=== PATIENT | male | born 1945 | race Two or more races ===

== ENCOUNTER 2018-12-27 11:02 | Day surgery (SDC) | payer OTHER ==
[2018-12-26 16:27] VITALS: BMI 36.0
[~2018-12-27 11:02] MED LIST: ACETAMINOPHEN 325 MG TABLET (FP) PO PRN
[2018-12-27] MEDS ORDERED: OFLOXACIN 0.3% OPHTHALMIC SOLUTION 5 ML BOTTLE ONE (11:09)
[2018-12-27] MEDS ORDERED: KETOROLAC TROMETHAMINE 0.5% EYE DROP 1 DROP DROPS ONE (11:10)
[2018-12-27] MEDS ORDERED: CYCLOPENTOLATE HCL 1% OPHTH SOLN 2 ML BOTTLE ONE (11:10)
[2018-12-27] MEDS ORDERED: TROPICAMIDE 1% OPHTH SOLN 15 ML BOTTLE ONE (11:10)
[2018-12-27] MEDS ORDERED: PHENYLEPHRINE 2.5% OPHTH SOLN 15 ML BOTTLE ONE (11:10)
[2018-12-27] MEDS: PHENYLEPHRINE 2.5% OPHTH SOLN 15 ML BOTTLE OP SCH ×3 (11:15→11:25)
[2018-12-27] MEDS: OFLOXACIN 0.3% OPHTHALMIC SOLUTION 5 ML BOTTLE OP SCH ×3 (11:15→11:25)
[2018-12-27] MEDS: CYCLOPENTOLATE HCL 1% OPHTH SOLN 2 ML BOTTLE OP SCH ×3 (11:15→11:25)
[2018-12-27] MEDS: KETOROLAC TROMETHAMINE 0.5% EYE DROP 1 DROP DROPS OP SCH ×3 (11:15→11:25)
[2018-12-27] MEDS: TROPICAMIDE 1% OPHTH SOLN 15 ML BOTTLE OP SCH ×3 (11:15→11:25)
[2018-12-27] MEDS ORDERED: LIDOCAINE HCL/PF 2% SDV 5ML VIAL ONE (11:56)
[2018-12-27] MEDS ORDERED: EPINEPHrine/PF 1 MG/1 ML (1:1,000) AMPULE ONE (11:56)
[2018-12-27] MEDS ORDERED: LIDOCAINE HCL/PF 1% SDV 5ML VIAL ONE (11:56)
[2018-12-27] MEDS ORDERED: TETRACAINE 0.5% OPHTH SOLN 2 ML BOTTLE ONE (11:57)
[2018-12-27] MEDS ORDERED: PROPOFOL 20 ML ONE (12:10)
[2018-12-27] MEDS ORDERED: LIDOCAINE HCL/PF 2% SDV 5ML VIAL INF ONE (12:15)
[2018-12-27] MEDS ORDERED: POVIDONE-IODINE 5% OPHTHALMIC PREP 30 ML SOLUTION OS ONE (12:16)
[2018-12-27] MEDS ORDERED: BSS (NA/CA/MG/K) BALANCED SALT SOLUTION OPHTH SOLN 15 ML BOTTLE OS ONE (12:23)
[2018-12-27] MEDS ORDERED: LIDOCAINE HCL 1% PRESERVATIVE FREE - 30ML VIAL IO ONE (12:23)
[2018-12-27] MEDS ORDERED: CHONDROITIN SU A/HYALUR SOD 1 KIT IO ONE (12:23)
[2018-12-27] MEDS ORDERED: EPINEPHrine/PF 1 MG/1 ML (1:1,000) AMPULE SQ ONE (12:28)
[2018-12-27] MEDS ORDERED: CHONDROITIN SU A/HYALUR SOD 1 KIT ONE ×3 (13:00→14:03)
[2018-12-27 13:29] VITALS: PULSE 60
--- NOTE | 2018-12-27 13:37 | OP ---
DATE OF OPERATION: 12/27/2018 SURGEON: Marion Villegas MD PREOPERATIVE DIAGNOSIS: Cataract, left eye. ASSOCIATED DIAGNOSIS: High myopia. POSTOPERATIVE DIAGNOSIS: Cataract, left eye. OPERATION: Phacoemulsification of left cataract with posterior chamber intraocular lens implantation. The lens used MA60MA lens, 3.0 diopter, serial No. [id number]. ANESTHESIA: Peribulbar/Modified Van Lint/MAC. COMPLICATIONS: None. PROCEDURE: The patient was brought to the operating room and correctly identified along with the operative site as well as the correct intraocular lens keating. He was then given a peribulbar block under sedation with 5 mL of 2% Lidocaine and 2 mL of the same mixture was given as a modified Van Lint eyelid block. The eye was then prepped and draped in the usual sterile fashion including 5% Betadine solution in the conjunctival sac and an eyelid drape. An eyelid speculum was then placed into the left eye. A paracentesis port was placed. Viscoelastic was injected to inflate the anterior chamber, and a temporal clear corneal wound was created. A continuous circular capsulorrhexis was performed. The nucleus was then hydro-dissected, hydro-delineated with BSS, and removed with phacoemulsification via [id number] approach. The remaining cortical material was irrigated and aspirated from the eye. Viscoelastic was injected to inflate the capsular bag. The temporal clear corneal wound was enlarged approximately 3.0 mm. The MA60MA lens was then loaded into a B cartridge and injected into the capsular bag without complication. The remaining viscoelastic was irrigated and aspirated from the eye. All wounds were stromal hydrated and tested and found to be watertight. No suture was placed. Topical Vancomycin was given. The eye patched and shielded, and the patient discharged from the operating room in a stable condition. MARION VILLEGAS M.D. [id number]
[2018-12-27 13:48] VITALS: BP 154/69; TEMP 97.9
== END 2018-12-27 13:50 | disposition home or self-care (01) ==
LOC: JASU-SURG 11:02
PROVIDERS: ATTEND Ophthalmology
PROC: 08RK3JZ Replacement of Left Lens with Synthetic Substitute, Percutaneous Approach (ICD-10-PCS; principal; 2018-12-27 12:00)
DX: H26.9 Unspecified cataract (principal); H52.12 Myopia, left eye; I10 Essential (primary) hypertension; E11.9 Type 2 diabetes mellitus without complications; Z79.84 Long term (current) use of oral hypoglycemic drugs
CPT/HCPCS: 82962

== ENCOUNTER 2020-11-25 00:19 | Observation (INO) | payer OTHER ==
[2020-11-25 00:42] VITALS: BMI 31.3
[2020-11-25 02:05] LABS: INR 0.93 (0.83-1.09); PROTHROMBIN TIME (PATIENT) 11.3 SEC (9.7-13.0)
[2020-11-25 02:06] LABS: BASO % 0.6 % (0-2.0); HEMATOCRIT 40.6 % (35.4-49); HEMOGLOBIN 13.6 GM/dL (11.7-16.9); LYMPH % 7.8 % (8-40); MCH 28.4 pg (25.7-33.7); MCHC 33.5 g/dl (32.0-35.9); MEAN CELL VOLUME 84.9 fl (80-96); MONO % 4.6 % (3.8-10.2); PLATELET COUNT 294 10^3/uL (134-434); RBC 4.78 M/mm3 (4.00-5.60); RDW 14.6 % (11.9-15.9); WHITE BLOOD COUNT 9.7 K/mm3 (4.0-10.0)
[2020-11-25 02:13] LABS: CALCIUM 9.5 mg/dL (8.5-10.1)
[2020-11-25 02:14] LABS: ALBUMIN 3.2 g/dl (3.4-5.0); BLOOD UREA NITROGEN 44.4 mg/dL (7-18); MAGNESIUM 2.5 mg/dL (1.8-2.4)
[2020-11-25 02:17] LABS: CREATININE 2.5 mg/dL (0.55-1.3)
[2020-11-25 02:19] LABS: BILIRUBIN,TOTAL 0.5 mg/dL (0.2-1); TOT PROT 7.9 g/dl (6.4-8.2)
[2020-11-25 03:04] LABS: EPI CELLS 3 /uL (0-25.1); HYALINE CASTS 1 /uL (0-3.1); URINE APPEARANCE CLEAR; URINE BACTERIA 3 /uL (0-1359); URINE BILIRUBIN NEGATIVE (NEGATIVE); URINE COLOR YELLOW; URINE GLUCOSE (UA) TRACE (NEGATIVE); URINE KETONE NEGATIVE (NEGATIVE); URINE LEUK ESTERASE NEGATIVE (NEGATIVE); URINE NITRITE NEGATIVE (NEGATIVE); URINE PROTEIN 3+ (NEGATIVE); URINE RBC 16 /uL (0-23.9); URINE UROBILINOGEN 0.2 mg/dL (0.2-1.0); URINE WBC 4 /uL (0-25.8)
[2020-11-25 09:42] LABS: BASO % 0.6 % (0-2.0); EOS % 0.5 % (0-4.5); HEMATOCRIT 37.5 % (35.4-49); HEMOGLOBIN 12.5 GM/dL (11.7-16.9); LYMPH % 17.1 % (8-40); MCH 28.1 pg (25.7-33.7); MCHC 33.4 g/dl (32.0-35.9); MEAN CELL VOLUME 84.2 fl (80-96); MEAN PLT VOLUME 7.7 fl (7.5-11.1); MONO % 7.6 % (3.8-10.2); NEUT % 74.2 % (42.8-82.8); PLATELET COUNT 337 10^3/uL (134-434); RBC 4.46 M/mm3 (4.00-5.60); RDW 14.4 % (11.9-15.9); WHITE BLOOD COUNT 9.9 K/mm3 (4.0-10.0)
[2020-11-25 10:00] LABS: ALBUMIN 2.9 g/dl (3.4-5.0)
[2020-11-25 10:01] LABS: BLOOD UREA NITROGEN 44.9 mg/dL (7-18); MAGNESIUM 2.4 mg/dL (1.8-2.4)
[2020-11-25 10:05] LABS: BILIRUBIN,TOTAL 0.7 mg/dL (0.2-1); CREATININE 2.4 mg/dL (0.55-1.3); TOT PROT 7.3 g/dl (6.4-8.2)
[2020-11-25] MEDS ORDERED: SODIUM CHLORIDE 1,000 ML IV SCH (12:00)
[2020-11-25] MEDS: LABETALOL HCL 200 MG TABLET (FP) PO SCH ×2 (12:31→21:04)
[2020-11-25] MEDS: amLODIPine BESYLATE 10 MG TABLET (FP) PO SCH (12:31)
[2020-11-25] MEDS: ASPIRIN COATED 81 MG TABLET.EC PO SCH (12:32)
[2020-11-25] MEDS: hydrALAZINE HCL 10 MG TABLET PO SCH ×4 (12:33→21:04)
[2020-11-25] MEDS: INSULIN SLIDING SCALE (NOVOLOG) 1 VIAL SQ SCH ×3 (12:39→21:21)
[2020-11-25] MEDS ORDERED: INSULIN (NOVOLOG) ASPART 100 UNITS/ML 10ML VIAL ONE ×2 (12:39→16:09)
[2020-11-25] MEDS: HEPARIN NA (PORCINE) 5,000 UNITS/ML 1ML VIAL SQ SCH ×3 (14:59→21:07)
[2020-11-25] MEDS: ACETAMINOPHEN 325 MG TABLET (FP) PO PRN ×2 (15:10→21:04)
[2020-11-25] MEDS: LISINOPRIL 5 MG TABLET PO SCH (17:42)
[2020-11-25] MEDS: ATORVASTATIN CA 40 MG TABLET (FP) PO SCH (21:03)
[2020-11-25] MEDS ORDERED: ATORVASTATIN CA 20 MG TABLET (FP) PO SCH (22:00)
[2020-11-26] MEDS: HEPARIN NA (PORCINE) 5,000 UNITS/ML 1ML VIAL SQ SCH ×3 (05:54→22:05)
[2020-11-26] MEDS: INSULIN SLIDING SCALE (NOVOLOG) 1 VIAL SQ SCH ×4 (06:18→22:11)
[2020-11-26 07:54] LABS: HEMATOCRIT 34.3 % (35.4-49); HEMOGLOBIN 11.5 GM/dL (11.7-16.9); MCH 28.3 pg (25.7-33.7); MCHC 33.5 g/dl (32.0-35.9); MEAN CELL VOLUME 84.5 fl (80-96); MEAN PLT VOLUME 8.1 fl (7.5-11.1); PLATELET COUNT 311 10^3/uL (134-434); RBC 4.06 M/mm3 (4.00-5.60); RDW 14.4 % (11.9-15.9); WHITE BLOOD COUNT 8.1 K/mm3 (4.0-10.0)
[2020-11-26 08:17] LABS: CALCIUM 8.9 mg/dL (8.5-10.1)
[2020-11-26 08:18] LABS: BLOOD UREA NITROGEN 45.6 mg/dL (7-18); MAGNESIUM 2.5 mg/dL (1.8-2.4)
[2020-11-26 08:21] LABS: CREATININE 2.6 mg/dL (0.55-1.3)
[2020-11-26] MEDS: LISINOPRIL 5 MG TABLET PO SCH (10:35)
[2020-11-26] MEDS: ASPIRIN COATED 81 MG TABLET.EC PO SCH (10:35)
[2020-11-26] MEDS: LABETALOL HCL 200 MG TABLET (FP) PO SCH ×2 (10:36→22:05)
[2020-11-26] MEDS: hydrALAZINE HCL 10 MG TABLET PO SCH ×4 (10:36→22:06)
[2020-11-26] MEDS: amLODIPine BESYLATE 10 MG TABLET (FP) PO SCH (10:36)
[2020-11-26 16:38] LABS: EPI CELLS 3 /uL (0-25.1); HYALINE CASTS 0 /uL (0-3.1); URINE APPEARANCE CLEAR; URINE BACTERIA 8 /uL (0-1359); URINE BILIRUBIN NEGATIVE (NEGATIVE); URINE COLOR YELLOW; URINE GLUCOSE (UA) 1+ (NEGATIVE); URINE KETONE NEGATIVE (NEGATIVE); URINE LEUK ESTERASE TRACE (NEGATIVE); URINE NITRITE NEGATIVE (NEGATIVE); URINE PROTEIN 4+ (NEGATIVE); URINE RBC 6 /uL (0-23.9); URINE WBC 31 /uL (0-25.8)
[2020-11-26] MEDS ORDERED: INSULIN (LEVEMIR) 100 UNITS/ML UNITS SQ SCH (22:00)
[2020-11-26] MEDS ORDERED: PT OWN MED DRAWER 7, Y5N ONE (22:01)
[2020-11-26] MEDS: ATORVASTATIN CA 40 MG TABLET (FP) PO SCH (22:06)
[2020-11-27] MEDS: INSULIN SLIDING SCALE (NOVOLOG) 1 VIAL SQ SCH ×3 (06:10→16:01)
[2020-11-27] MEDS: HEPARIN NA (PORCINE) 5,000 UNITS/ML 1ML VIAL SQ SCH ×2 (06:12→14:07)
[2020-11-27 07:46] LABS: EOS % 4.2 % (0-4.5); HEMATOCRIT 32.6 % (35.4-49); HEMOGLOBIN 11.2 GM/dL (11.7-16.9); LYMPH % 30.9 % (8-40); MCH 28.6 pg (25.7-33.7); MCHC 34.2 g/dl (32.0-35.9); MEAN CELL VOLUME 83.7 fl (80-96); MONO % 10.8 % (3.8-10.2); NEUT % 53.1 % (42.8-82.8); PLATELET COUNT 282 10^3/uL (134-434); RDW 14.5 % (11.9-15.9)
[2020-11-27 08:02] LABS: ALBUMIN 2.6 g/dl (3.4-5.0); BLOOD UREA NITROGEN 44.9 mg/dL (7-18); CALCIUM 8.7 mg/dL (8.5-10.1); MAGNESIUM 2.4 mg/dL (1.8-2.4)
[2020-11-27 08:04] LABS: CREATININE 2.4 mg/dL (0.55-1.3)
[2020-11-27 08:05] LABS: PHOSPHOROUS 3.5 mg/dL (2.5-4.9)
[2020-11-27 08:06] LABS: BILIRUBIN,TOTAL 0.6 mg/dL (0.2-1); TOT PROT 6.4 g/dl (6.4-8.2)
[2020-11-27] MEDS: LISINOPRIL 5 MG TABLET PO SCH (09:25)
[2020-11-27] MEDS: ASPIRIN COATED 81 MG TABLET.EC PO SCH (09:25)
[2020-11-27] MEDS: amLODIPine BESYLATE 10 MG TABLET (FP) PO SCH (09:25)
[2020-11-27] MEDS: hydrALAZINE HCL 10 MG TABLET PO SCH ×2 (09:26→14:07)
[2020-11-27] MEDS: LABETALOL HCL 200 MG TABLET (FP) PO SCH (09:26)
[2020-11-27] MEDS ORDERED: FUROSEMIDE 20 MG TABLET (FP) PO SCH (10:00)
[2020-11-27 13:40] VITALS: BP 126/68; PULSE 96; TEMP 97.3
[2020-11-27] MEDS ORDERED: INSULIN (NOVOLOG) ASPART 100 UNITS/ML 10ML VIAL ONE (15:58)
== END 2020-11-27 16:30 | disposition home or self-care (01) ==
LOC: JER 00:19 → JERBED 05:12 → INTOOBSV 05:12 → UNDOADMOB 05:12 → JERBED 11:58 → J4W 11:58
PROVIDERS: ADMIT Hospitalist; ATTEND Internal Medicine
PROC: 3E013VG Introduction of Insulin into Subcutaneous Tissue, Percutaneous Approach (ICD-10-PCS; principal; 2020-11-25)
PROC: 3E0337Z Introduction of Electrolytic and Water Balance Substance into Peripheral Vein, Percutaneous Approach (ICD-10-PCS; 2020-11-25)
DX: I12.9 Hypertensive chronic kidney disease with stage 1 through stage 4 chronic kidney disease, or unspecified chronic kidney disease (principal); S09.90XA Unspecified injury of head, initial encounter; R55 Syncope and collapse; E11.649 Type 2 diabetes mellitus with hypoglycemia without coma; E11.22 Type 2 diabetes mellitus with diabetic chronic kidney disease; E66.9 Obesity, unspecified; Z68.31 Body mass index [BMI] 31.0-31.9, adult; Z87.891 Personal history of nicotine dependence; R53.1 Weakness; H54.40 Blindness, one eye, unspecified eye; R41.82 Altered mental status, unspecified; E78.00 Pure hypercholesterolemia, unspecified; N18.4 Chronic kidney disease, stage 4 (severe); Z79.4 Long term (current) use of insulin; W18.39XA Other fall on same level, initial encounter; Y93.89 Activity, other specified; Y92.89 Other specified places as the place of occurrence of the external cause
CPT/HCPCS: 36415; 70450-TC; 71045-TC-FY; 71046-TC-FY; 72125-TC; 76775-TC; 80048; 80053; 80061; 81003; 82550; 82553; 82570; 82962; 83036; 83721; 83735; 84100; 84156; 84484; 85025; 85027; 85610; 87086; 93005; 93010; 93306-TC; 93880-TC; 96372; 97116-GP; 97161-GP; 99285-25; C9803; G0378; J1644; U0003; U0005

== ENCOUNTER 2020-12-10 01:29 | Inpatient (IN) | payer OTHER ==
[2020-12-10] MEDS ORDERED: DEXTROSE 50%-WATER 25 GM/50 ML DISP.SYRIN ONE ×2 (01:36→03:08)
[2020-12-10] MEDS ORDERED: DEXTROSE 50%-WATER - 25 GM/50 ML VIAL IVPUSH ONE ×2 (01:50→03:01)
[2020-12-10 02:24] LABS: CHLORIDE 108 mmol/L (98-107); SODIUM 138 mmol/L (136-145)
[2020-12-10 02:26] LABS: CALCIUM 8.8 mg/dL (8.5-10.1)
[2020-12-10 02:27] LABS: ANION GAP 7 MMOL/L (8-16); BLOOD UREA NITROGEN 45.2 mg/dL (7-18); CO2 23 mmol/L (21-32); GLUCOSE,RANDOM 176 mg/dL (74-106)
[2020-12-10 02:32] LABS: BASO % 1.6 % (0-2.0); BILIRUBIN,TOTAL 0.4 mg/dL (0.2-1); CREATININE 2.3 mg/dL (0.55-1.3); EOS % 2.9 % (0-4.5); HEMATOCRIT 32.8 % (35.4-49); HEMOGLOBIN 10.8 GM/dL (11.7-16.9); LYMPH % 21.3 % (8-40); MCH 28.4 pg (25.7-33.7); MCHC 32.9 g/dl (32.0-35.9); MEAN CELL VOLUME 86.3 fl (80-96); MEAN PLT VOLUME 8.2 fl (7.5-11.1); NEUT % 67.2 % (42.8-82.8); PLATELET COUNT 289 10^3/uL (134-434); RDW 14.8 % (11.9-15.9); SGOT/AST 23 U/L (15-37); SGPT/ALT 17 U/L (13-61); TOT PROT 7.2 g/dl (6.4-8.2); WHITE BLOOD COUNT 13.5 K/mm3 (4.0-10.0)
[2020-12-10 02:33] LABS: ALK PHOS 83 U/L (45-117)
[2020-12-10] MEDS ORDERED: DEXTROSE 10%-WATER - 1,000 ML IV SCH (03:15)
[2020-12-10 03:38] LABS: PLATELET ESTIMATE NORMAL
[2020-12-10 03:45] LABS: N-TERMINAL BNP 1490.9 pg/ml (5-125)
[2020-12-10] MEDS ORDERED: DEXTROSE 5%-0.45% SALINE 1,000 ML IV SCH (04:15)
[2020-12-10] MEDS ORDERED: FUROSEMIDE 40 MG/4 ML INJECTABLE VIAL IVPUSH ONE (06:04)
[2020-12-10] MEDS ORDERED: FUROSEMIDE 40 MG/4 ML INJECTABLE VIAL ONE (06:14)
[2020-12-10] MEDS: HEPARIN NA (PORCINE) 5,000 UNITS/ML 1ML VIAL SQ SCH ×3 (06:17→22:32)
[2020-12-10 08:30] LABS: HEMATOCRIT 30.8 % (35.4-49); HEMOGLOBIN 10.3 GM/dL (11.7-16.9); MCH 28.8 pg (25.7-33.7); MCHC 33.4 g/dl (32.0-35.9); MEAN CELL VOLUME 86.2 fl (80-96); PLATELET COUNT 256 10^3/uL (134-434); RBC 3.58 M/mm3 (4.00-5.60); RDW 14.6 % (11.9-15.9)
[2020-12-10 08:42] LABS: MAGNESIUM 2.3 mg/dL (1.8-2.4)
[2020-12-10 08:46] LABS: PHOSPHOROUS 4.1 mg/dL (2.5-4.9)
[2020-12-10] MEDS ORDERED: DEXTROSE 50%-WATER - 25 GM/50 ML VIAL IVPUSH PRN (09:22)
[2020-12-10] MEDS ORDERED: LABETALOL HCL 100 MG TABLET (FP) ONE ×3 (10:12→21:34)
[2020-12-10] MEDS ORDERED: ASPIRIN COATED 81 MG TABLET.EC ONE (10:12)
[2020-12-10] MEDS: ENALAPRIL MALEATE 10 MG TABLET PO SCH ×2 (10:21→22:32)
[2020-12-10] MEDS: ASPIRIN COATED 81 MG TABLET.EC PO SCH (10:21)
[2020-12-10] MEDS: hydrALAZINE HCL 10 MG TABLET PO SCH ×4 (10:21→22:32)
[2020-12-10] MEDS: LABETALOL HCL 100 MG TABLET (FP) PO SCH ×2 (10:21→22:32)
[2020-12-10] MEDS ORDERED: HEPARIN NA (PORCINE) 5,000 UNITS/ML 1ML VIAL ONE ×2 (14:20→21:27)
[2020-12-10] MEDS ORDERED: INSULIN SLIDING SCALE (NOVOLOG) 1 VIAL SQ SCH (16:30)
[2020-12-10] MEDS ORDERED: ATORVASTATIN CA 20 MG TABLET (FP) ONE (21:26)
[2020-12-10] MEDS ORDERED: ENALAPRIL MALEATE 5 MG TABLET ONE (21:34)
[2020-12-10] MEDS: ATORVASTATIN CA 20 MG TABLET (FP) PO SCH (22:32)
[2020-12-10] MEDS: INSULIN SLIDING SCALE (NOVOLOG) 1 VIAL SQ SCH (22:33)
[2020-12-10 23:09] VITALS: BMI 33.7
[2020-12-11] MEDS: HEPARIN NA (PORCINE) 5,000 UNITS/ML 1ML VIAL SQ SCH ×3 (05:40→21:06)
[2020-12-11] MEDS: INSULIN SLIDING SCALE (NOVOLOG) 1 VIAL SQ SCH ×4 (06:09→21:10)
[2020-12-11] MEDS: INSULIN (LEVEMIR) 100 UNITS/ML UNITS SQ SCH (06:19)
[2020-12-11 07:31] LABS: BASO % 1.1 % (0-2.0); EOS % 4.5 % (0-4.5); HEMOGLOBIN 10.5 GM/dL (11.7-16.9); LYMPH % 26.1 % (8-40); MCHC 32.9 g/dl (32.0-35.9); MEAN PLT VOLUME 7.3 fl (7.5-11.1); MONO % 9.5 % (3.8-10.2); NEUT % 58.8 % (42.8-82.8); PLATELET COUNT 283 10^3/uL (134-434); RBC 3.77 M/mm3 (4.00-5.60); RDW 14.7 % (11.9-15.9); WHITE BLOOD COUNT 8.4 K/mm3 (4.0-10.0)
[2020-12-11 07:51] LABS: CALCIUM 8.8 mg/dL (8.5-10.1)
[2020-12-11 07:52] LABS: ALBUMIN 2.9 g/dl (3.4-5.0); BLOOD UREA NITROGEN 39.8 mg/dL (7-18); MAGNESIUM 2.4 mg/dL (1.8-2.4)
[2020-12-11 07:54] LABS: BILIRUBIN,TOTAL 0.5 mg/dL (0.2-1); TOT PROT 6.6 g/dl (6.4-8.2)
[2020-12-11 07:55] LABS: CREATININE 2.2 mg/dL (0.55-1.3)
[2020-12-11 07:56] LABS: PHOSPHOROUS 4.2 mg/dL (2.5-4.9)
[2020-12-11] MEDS: LABETALOL HCL 100 MG TABLET (FP) PO SCH ×2 (09:14→21:05)
[2020-12-11] MEDS: ENALAPRIL MALEATE 10 MG TABLET PO SCH ×2 (09:15→21:05)
[2020-12-11] MEDS: hydrALAZINE HCL 10 MG TABLET PO SCH ×4 (09:15→21:05)
[2020-12-11] MEDS: ASPIRIN COATED 81 MG TABLET.EC PO SCH (09:15)
[2020-12-11] MEDS ORDERED: CALCIUM GLUCONATE 10% - 1,000 MG/10 ML VIAL IVPUSH ONE (09:32)
[2020-12-11] MEDS ORDERED: DEXTROSE 50%-WATER - 25 GM/50 ML VIAL IVPUSH ONE (09:33)
[2020-12-11 10:41] LABS: CHLORIDE 104 mmol/L (98-107); SODIUM 141 mmol/L (136-145)
[2020-12-11 10:43] LABS: ANION GAP 6 MMOL/L (8-16); BLOOD UREA NITROGEN 37.5 mg/dL (7-18); CALCIUM 9.1 mg/dL (8.5-10.1); CO2 31 mmol/L (21-32)
[2020-12-11 10:44] LABS: GLUCOSE,RANDOM 149 mg/dL (74-106)
[2020-12-11 10:47] LABS: CREATININE 2.2 mg/dL (0.55-1.3)
[2020-12-11] MEDS ORDERED: SODIUM ZIRCONIUM CYCLOSILICATE (LOKELMA) 5 GM PACKET PO SCH (13:15)
[2020-12-11 17:45] LABS: CHLORIDE 102 mmol/L (98-107); SODIUM 138 mmol/L (136-145)
[2020-12-11 17:46] LABS: ANION GAP 7 MMOL/L (8-16); CALCIUM 8.9 mg/dL (8.5-10.1); CO2 28 mmol/L (21-32)
[2020-12-11 17:47] LABS: BLOOD UREA NITROGEN 38.7 mg/dL (7-18); GLUCOSE,RANDOM 128 mg/dL (74-106)
[2020-12-11 17:50] LABS: CREATININE 2.2 mg/dL (0.55-1.3)
[2020-12-11] MEDS: ATORVASTATIN CA 20 MG TABLET (FP) PO SCH (21:04)
[2020-12-12] MEDS: HEPARIN NA (PORCINE) 5,000 UNITS/ML 1ML VIAL SQ SCH ×2 (06:03→14:02)
[2020-12-12] MEDS: INSULIN SLIDING SCALE (NOVOLOG) 1 VIAL SQ SCH ×3 (06:30→17:34)
[2020-12-12] MEDS: INSULIN (LEVEMIR) 100 UNITS/ML UNITS SQ SCH (06:31)
[2020-12-12 06:42] LABS: EOS % 4.6 % (0-4.5); HEMATOCRIT 29.8 % (35.4-49); HEMOGLOBIN 10.1 GM/dL (11.7-16.9); LYMPH % 32.6 % (8-40); MCH 28.9 pg (25.7-33.7); MEAN CELL VOLUME 84.9 fl (80-96); MEAN PLT VOLUME 7.4 fl (7.5-11.1); MONO % 9.9 % (3.8-10.2); NEUT % 51.9 % (42.8-82.8); PLATELET COUNT 282 10^3/uL (134-434); RBC 3.51 M/mm3 (4.00-5.60); RDW 14.4 % (11.9-15.9); WHITE BLOOD COUNT 7.3 K/mm3 (4.0-10.0)
[2020-12-12 06:58] LABS: CHLORIDE 107 mmol/L (98-107); SODIUM 140 mmol/L (136-145)
[2020-12-12 07:02] LABS: MAGNESIUM 2.3 mg/dL (1.8-2.4)
[2020-12-12 07:03] LABS: BLOOD UREA NITROGEN 36.6 mg/dL (7-18); CALCIUM 8.3 mg/dL (8.5-10.1); GLUCOSE,RANDOM 102 mg/dL (74-106)
[2020-12-12 07:04] LABS: ALBUMIN 2.8 g/dl (3.4-5.0)
[2020-12-12 07:06] LABS: ANION GAP 6 MMOL/L (8-16); CO2 27 mmol/L (21-32); CREATININE 2.2 mg/dL (0.55-1.3); PHOSPHOROUS 4.4 mg/dL (2.5-4.9); SGOT/AST 10 U/L (15-37); SGPT/ALT 16 U/L (13-61)
[2020-12-12 07:07] LABS: TOT PROT 6.3 g/dl (6.4-8.2)
[2020-12-12 07:09] LABS: ALK PHOS 74 U/L (45-117)
[2020-12-12 07:12] LABS: BILIRUBIN,TOTAL 0.4 mg/dL (0.2-1)
[2020-12-12] MEDS: hydrALAZINE HCL 10 MG TABLET PO SCH ×2 (10:22→14:02)
[2020-12-12] MEDS: ENALAPRIL MALEATE 10 MG TABLET PO SCH (10:22)
[2020-12-12] MEDS: LABETALOL HCL 100 MG TABLET (FP) PO SCH (10:23)
[2020-12-12] MEDS: ASPIRIN COATED 81 MG TABLET.EC PO SCH (10:24)
[2020-12-12 13:44] VITALS: BP 154/65; PULSE 62; TEMP 98
[2020-12-12] MEDS ORDERED: amLODIPine BESYLATE 10 MG TABLET (FP) PO SCH (13:45)
[2020-12-13] MEDS ORDERED: FUROSEMIDE 20 MG TABLET (FP) PO SCH (10:00)
== END 2020-12-12 17:30 | disposition home or self-care (01) | DRG 639 ==
LOC: JER 01:29 → JERBED 05:08 → J4W 22:04
PROVIDERS: ADMIT Internal Medicine; ATTEND Internal Medicine
DX: E11.649 Type 2 diabetes mellitus with hypoglycemia without coma (principal); I12.9 Hypertensive chronic kidney disease with stage 1 through stage 4 chronic kidney disease, or unspecified chronic kidney disease; E11.22 Type 2 diabetes mellitus with diabetic chronic kidney disease; N18.4 Chronic kidney disease, stage 4 (severe); T38.3X5A Adverse effect of insulin and oral hypoglycemic [antidiabetic] drugs, initial encounter; D64.9 Anemia, unspecified; E87.5 Hyperkalemia; E78.5 Hyperlipidemia, unspecified; I35.0 Nonrheumatic aortic (valve) stenosis
CPT/HCPCS: 36415; 71046-TC-FY; 80048; 80053; 82550; 82962; 83036; 83735; 83880; 84100; 84484; 85025; 85027; 93005; 93010; 97116-GP; 97161-GP; 99285-25; C9803; J1644; U0003; U0005

== ENCOUNTER 2022-04-13 15:36 | Inpatient (IN) | payer OTHER ==
[2022-04-13 17:23] LABS: BASO % 1.2 % (0-2.0); EOS % 4.1 % (0-4.5); HEMATOCRIT 26.9 % (35.4-49); HEMOGLOBIN 8.8 GM/dL (11.7-16.9); LYMPH % 22.7 % (8-40); MCHC 32.7 g/dl (32.0-35.9); MEAN CELL VOLUME 85.8 fl (80-96); MEAN PLT VOLUME 7.3 fl (7.5-11.1); MONO % 10.6 % (3.8-10.2); NEUT % 61.4 % (42.8-82.8); PLATELET COUNT 314 10^3/uL (134-434); RBC 3.13 M/mm3 (4.00-5.60); RDW 16.7 % (11.9-15.9); WHITE BLOOD COUNT 7.2 K/mm3 (4.0-10.0)
[2022-04-13 17:38] LABS: INR 1.03 (0.83-1.09); PROTHROMBIN TIME (PATIENT) 11.8 SEC (9.7-13.0)
[2022-04-13 17:41] LABS: ACTIVATED PTT 33.7 SECONDS (25.2-36.5)
[2022-04-13 17:46] LABS: ALBUMIN 2.9 g/dl (3.4-5.0); BLOOD UREA NITROGEN 64.7 mg/dL (7-18); CALCIUM 8.4 mg/dL (8.5-10.1); MAGNESIUM 2.2 mg/dL (1.8-2.4)
[2022-04-13 17:49] LABS: CREATININE 4.2 mg/dL (0.55-1.3)
[2022-04-13 17:50] LABS: BILIRUBIN,TOTAL 0.4 mg/dL (0.2-1); N-TERMINAL BNP 3268.2 pg/ml (5-125)
[2022-04-13 18:40] LABS: EPI CELLS 2 /uL (0-25.1); HYALINE CASTS 0 /uL (0-3.1); PH,URINE 7.5 (5.0-8.0); URINE APPEARANCE CLEAR; URINE BACTERIA 0 /uL (0-1359); URINE BILIRUBIN NEGATIVE (NEGATIVE); URINE COLOR YELLOW; URINE GLUCOSE (UA) TRACE (NEGATIVE); URINE KETONE NEGATIVE (NEGATIVE); URINE LEUK ESTERASE NEGATIVE (NEGATIVE); URINE NITRITE NEGATIVE (NEGATIVE); URINE PROTEIN 3+ (NEGATIVE); URINE RBC 6 /uL (0-23.9); URINE UROBILINOGEN 0.2 mg/dL (0.2-1.0); URINE WBC 4 /uL (0-25.8)
[2022-04-14] MEDS: hydrALAZINE HCL 10 MG TABLET PO SCH ×3 (00:42→11:07)
[2022-04-14] MEDS: HEPARIN NA (PORCINE) 5,000 UNITS/ML 1ML VIAL SQ SCH ×3 (06:05→22:54)
[2022-04-14] MEDS: INSULIN (LEVEMIR) 100 UNITS/ML UNITS SQ SCH ×3 (06:07→23:04)
[2022-04-14] MEDS: INSULIN SLIDING SCALE (NOVOLOG) 1 VIAL SQ SCH ×4 (06:10→23:04)
[2022-04-14] MEDS ORDERED: ENOXAPARIN NA (PORCINE) 40 MG/0.4 ML DISP.SYRIN SQ SCH (10:00)
[2022-04-14] MEDS ORDERED: amLODIPine BESYLATE 10 MG TABLET (FP) PO SCH (10:00)
[2022-04-14] MEDS: ASPIRIN COATED 81 MG TABLET.EC PO SCH (11:07)
[2022-04-14] MEDS: LABETALOL HCL 100 MG TABLET (FP) PO SCH ×2 (11:07→22:55)
[2022-04-14 11:25] LABS: BASO % 1.1 % (0-2.0); EOS % 4.2 % (0-4.5); HEMATOCRIT 28.1 % (35.4-49); HEMOGLOBIN 9.3 GM/dL (11.7-16.9); LYMPH % 21.9 % (8-40); MCH 27.7 pg (25.7-33.7); MEAN CELL VOLUME 84.1 fl (80-96); MEAN PLT VOLUME 7.1 fl (7.5-11.1); MONO % 9.9 % (3.8-10.2); NEUT % 62.9 % (42.8-82.8); PLATELET COUNT 331 10^3/uL (134-434); RBC 3.34 M/mm3 (4.00-5.60); RDW 16.2 % (11.9-15.9); WHITE BLOOD COUNT 6.8 K/mm3 (4.0-10.0)
[2022-04-14 11:58] VITALS: BMI 32.2
[2022-04-14 12:03] LABS: ALBUMIN 2.9 g/dl (3.4-5.0); BLOOD UREA NITROGEN 57.9 mg/dL (7-18); CALCIUM 8.8 mg/dL (8.5-10.1); MAGNESIUM 2.3 mg/dL (1.8-2.4)
[2022-04-14 12:06] LABS: CREATININE 3.8 mg/dL (0.55-1.3); PHOSPHOROUS 4.3 mg/dL (2.5-4.9)
[2022-04-14 12:07] LABS: TOT PROT 7.2 g/dl (6.4-8.2)
[2022-04-14 12:08] LABS: BILIRUBIN,TOTAL 0.8 mg/dL (0.2-1)
[2022-04-14] MEDS: hydrALAZINE HCL 25 MG TABLET (FP) PO SCH (17:49)
[2022-04-14] MEDS: ATORVASTATIN CA 20 MG TABLET (FP) PO SCH (22:55)
[2022-04-15] MEDS: hydrALAZINE HCL 25 MG TABLET (FP) PO SCH ×4 (01:51→17:07)
[2022-04-15] MEDS: INSULIN SLIDING SCALE (NOVOLOG) 1 VIAL SQ SCH ×4 (06:55→22:05)
[2022-04-15] MEDS: HEPARIN NA (PORCINE) 5,000 UNITS/ML 1ML VIAL SQ SCH ×3 (07:02→22:06)
[2022-04-15] MEDS: INSULIN (LEVEMIR) 100 UNITS/ML UNITS SQ SCH (07:03)
[2022-04-15] MEDS: LABETALOL HCL 100 MG TABLET (FP) PO SCH ×2 (09:20→22:05)
[2022-04-15] MEDS: amLODIPine BESYLATE 5 MG TABLET (FP) PO SCH (09:20)
[2022-04-15] MEDS: ASPIRIN COATED 81 MG TABLET.EC PO SCH (09:20)
[2022-04-15 11:53] LABS: CALCIUM 8.4 mg/dL (8.5-10.1)
[2022-04-15 11:54] LABS: ALBUMIN 2.8 g/dl (3.4-5.0); BLOOD UREA NITROGEN 62.4 mg/dL (7-18)
[2022-04-15 11:57] LABS: CREATININE 4.1 mg/dL (0.55-1.3)
[2022-04-15 11:58] LABS: BILIRUBIN,TOTAL 0.5 mg/dL (0.2-1); TOT PROT 6.9 g/dl (6.4-8.2)
[2022-04-15] MEDS: ATORVASTATIN CA 20 MG TABLET (FP) PO SCH (22:05)
[2022-04-15 23:53] VITALS: TEMP 98.3
[2022-04-16] MEDS: hydrALAZINE HCL 25 MG TABLET (FP) PO SCH ×3 (00:11→12:12)
[2022-04-16] MEDS: INSULIN (LEVEMIR) 100 UNITS/ML UNITS SQ SCH ×2 (00:12→06:19)
[2022-04-16 05:12] VITALS: RESP 18
[2022-04-16] MEDS: HEPARIN NA (PORCINE) 5,000 UNITS/ML 1ML VIAL SQ SCH (06:15)
[2022-04-16] MEDS: INSULIN SLIDING SCALE (NOVOLOG) 1 VIAL SQ SCH ×2 (06:16→11:59)
[2022-04-16] MEDS: LABETALOL HCL 100 MG TABLET (FP) PO SCH (09:40)
[2022-04-16] MEDS: amLODIPine BESYLATE 5 MG TABLET (FP) PO SCH (09:40)
[2022-04-16] MEDS: ASPIRIN COATED 81 MG TABLET.EC PO SCH (09:40)
[2022-04-16 21:17] VITALS: BP 138/70; PULSE 66
== END 2022-04-16 12:43 | disposition home or self-care (01) | DRG 683 ==
LOC: JER 15:36 → JERBED 20:40 → J5S 04-14 00:17
PROVIDERS: ADMIT Internal Medicine; ATTEND Family Medicine
DX: N17.9 Acute kidney failure, unspecified (principal); I13.0 Hypertensive heart and chronic kidney disease with heart failure and stage 1 through stage 4 chronic kidney disease, or unspecified chronic kidney disease; N18.4 Chronic kidney disease, stage 4 (severe); I50.9 Heart failure, unspecified; E78.5 Hyperlipidemia, unspecified; D50.9 Iron deficiency anemia, unspecified; E11.22 Type 2 diabetes mellitus with diabetic chronic kidney disease; E88.09 Other disorders of plasma-protein metabolism, not elsewhere classified; Z79.4 Long term (current) use of insulin; E11.649 Type 2 diabetes mellitus with hypoglycemia without coma
CPT/HCPCS: 36415; 71045-TC-FY; 71250-TC; 76775-TC; 76856-TC; 80053; 81003; 82728; 82962; 83540; 83550; 83615; 83735; 83880; 84100; 84466; 84484; 85025; 85045; 85610; 85730; 87086; 93005; 93010; 93306-TC; 99285-25; C9803-CS; J1644; U0003; U0005

== ENCOUNTER 2022-05-05 13:57 | Inpatient (IN) | payer OTHER ==
[2022-05-05] MEDS ORDERED: FUROSEMIDE 40 MG/4 ML INJECTABLE VIAL IVPUSH ONE ×2 (15:07→15:16)
[2022-05-05 15:13] LABS: EOS % 2.6 % (0-4.5); HEMATOCRIT 24.9 % (35.4-49); HEMOGLOBIN 7.8 GM/dL (11.7-16.9); LYMPH % 16.5 % (8-40); MCH 27.5 pg (25.7-33.7); MCHC 31.2 g/dl (32.0-35.9); MEAN CELL VOLUME 88.1 fl (80-96); NEUT % 70.9 % (42.8-82.8); PLATELET COUNT 344 10^3/uL (134-434); RBC 2.82 M/mm3 (4.00-5.60); RDW 17.2 % (11.9-15.9); WHITE BLOOD COUNT 8.3 K/mm3 (4.0-10.0)
[2022-05-05 15:17] LABS: INR 1.07 (0.83-1.09); PROTHROMBIN TIME (PATIENT) 12.3 SEC (9.7-13.0)
[2022-05-05] MEDS: ALBUTEROL SO4 2.5/IPRATROPIUM 0.5 INH SOL 3 ML VIAL.NEB. NEB SCH (15:17)
[2022-05-05 15:20] LABS: ACTIVATED PTT 32.4 SECONDS (25.2-36.5)
[2022-05-05] MEDS ORDERED: ALBUTEROL SO4 2.5/IPRATROPIUM 0.5 INH SOL 3 ML VIAL.NEB. NEB ONE (15:20)
[2022-05-05] MEDS ORDERED: FUROSEMIDE 40 MG/4 ML INJECTABLE VIAL ONE (15:20)
[2022-05-05] MEDS ORDERED: PIPERACILLIN/TAZOB 4.5 GM 4.5 GM in DEXTROSE 5%-WATER 100 ML IVPB ONE (15:24)
[2022-05-05] MEDS ORDERED: VANCOMYCIN HCL 1,500 MG in DEXTROSE 5%-WATER - 500 ML IVPB ONE (15:25)
[2022-05-05 15:31] LABS: CHLORIDE 109 mmol/L (98-107); SODIUM 141 mmol/L (136-145)
[2022-05-05 15:33] LABS: CALCIUM 8.4 mg/dL (8.5-10.1)
[2022-05-05 15:34] LABS: BLOOD UREA NITROGEN 87.7 mg/dL (7-18); CO2 25 mmol/L (21-32); GLUCOSE,RANDOM 216 mg/dL (74-106); MAGNESIUM 3.4 mg/dL (1.8-2.4)
[2022-05-05 15:36] LABS: SGPT/ALT 17 U/L (13-61)
[2022-05-05 15:37] LABS: CREATININE 4.5 mg/dL (0.55-1.3); PHOSPHOROUS 5.6 mg/dL (2.5-4.9); SGOT/AST 7 U/L (15-37)
[2022-05-05 15:38] LABS: BILIRUBIN,TOTAL 0.4 mg/dL (0.2-1); TOT PROT 7.2 g/dl (6.4-8.2)
[2022-05-05 15:40] LABS: ALK PHOS 88 U/L (45-117)
[2022-05-05 15:44] LABS: ANION GAP 8 MMOL/L (8-16)
[2022-05-05] MEDS ORDERED: INSULIN REGULAR HUMAN 100 UNITS/ML *VIAL IVPUSH ONE (15:45)
[2022-05-05] MEDS ORDERED: CALCIUM GLUCONATE 10% - 1,000 MG/10 ML VIAL IVPB ONE (15:45)
[2022-05-05] MEDS ORDERED: DEXTROSE 50%-WATER - 25 GM/50 ML VIAL IVPUSH ONE (15:46)
[2022-05-05] MEDS ORDERED: DEXTROSE 50%-WATER 25 GM/50 ML DISP.SYRIN ONE (16:14)
[2022-05-05] MEDS ORDERED: CALCIUM GLUC IN NACL, ISO-OSM 1 GM/50 ML BAG IVPB ONE (16:30)
[2022-05-05] MEDS ORDERED: PIPERACILLIN/TAZOB 4.5 GM 4.5 GM/100 ML BAG IVPB ONE (16:32)
[2022-05-05] MEDS ORDERED: hydrALAZINE HCL 50 MG TABLET (FP) ONE (17:16)
[2022-05-05] MEDS: hydrALAZINE HCL 25 MG TABLET (FP) PO SCH (17:34)
[2022-05-05 20:00] LABS: EPI CELLS 6 /uL (0-25.1); HYALINE CASTS 1 /uL (0-3.1); URINE APPEARANCE CLEAR; URINE BACTERIA 1 /uL (0-1359); URINE BILIRUBIN NEGATIVE (NEGATIVE); URINE COLOR YELLOW; URINE GLUCOSE (UA) 1+ (NEGATIVE); URINE KETONE NEGATIVE (NEGATIVE); URINE LEUK ESTERASE NEGATIVE (NEGATIVE); URINE NITRITE NEGATIVE (NEGATIVE); URINE PROTEIN 3+ (NEGATIVE); URINE RBC 12 /uL (0-23.9); URINE UROBILINOGEN 0.2 mg/dL (0.2-1.0); URINE WBC 18 /uL (0-25.8)
[2022-05-05] MEDS ORDERED: HEPARIN NA (PORCINE) 5,000 UNITS/ML 1ML VIAL ONE (22:09)
[2022-05-05] MEDS ORDERED: LABETALOL HCL 100 MG TABLET (FP) ONE (22:09)
[2022-05-05] MEDS: INSULIN (LEVEMIR) 100 UNITS/ML UNITS SQ SCH (22:36)
[2022-05-05] MEDS: LABETALOL HCL 100 MG, LABETALOL HCL 200 MG PO SCH (22:36)
[2022-05-05] MEDS: HEPARIN NA (PORCINE) 5,000 UNITS/ML 1ML VIAL SQ SCH (22:36)
[2022-05-06] MEDS ORDERED: hydrALAZINE HCL 50 MG TABLET (FP) ONE ×3 (02:28→13:51)
[2022-05-06] MEDS: hydrALAZINE HCL 25 MG TABLET (FP) PO SCH ×5 (02:35→17:45)
[2022-05-06] MEDS ORDERED: ATORVASTATIN CA 20 MG TABLET (FP) ONE (09:26)
[2022-05-06] MEDS ORDERED: ASPIRIN COATED 81 MG TABLET.EC ONE (09:27)
[2022-05-06] MEDS ORDERED: FUROSEMIDE 40 MG/4 ML INJECTABLE VIAL ONE (09:27)
[2022-05-06] MEDS ORDERED: LABETALOL HCL 100 MG TABLET (FP) ONE (09:27)
[2022-05-06] MEDS ORDERED: HEPARIN NA (PORCINE) 5,000 UNITS/ML 1ML VIAL ONE (09:27)
[2022-05-06] MEDS ORDERED: INSULIN (LEVEMIR) 100 UNITS/ML UNITS SQ ONE (09:28)
[2022-05-06] MEDS: HEPARIN NA (PORCINE) 5,000 UNITS/ML 1ML VIAL SQ SCH ×2 (09:29→22:17)
[2022-05-06] MEDS: ASPIRIN COATED 81 MG TABLET.EC PO SCH (09:29)
[2022-05-06] MEDS: LABETALOL HCL 100 MG, LABETALOL HCL 200 MG PO SCH ×2 (09:30→22:21)
[2022-05-06] MEDS: ATORVASTATIN CA 20 MG TABLET (FP) PO SCH (09:30)
[2022-05-06] MEDS: INSULIN (LEVEMIR) 100 UNITS/ML UNITS SQ SCH ×2 (09:52→22:19)
[2022-05-06] MEDS ORDERED: FUROSEMIDE 40 MG/4 ML INJECTABLE VIAL IVPUSH SCH (10:00)
[2022-05-06 10:40] LABS: BASO % 0.8 % (0-2.0); EOS % 1.6 % (0-4.5); HEMATOCRIT 24.4 % (35.4-49); HEMOGLOBIN 7.6 GM/dL (11.7-16.9); LYMPH % 13.6 % (8-40); MCH 27.2 pg (25.7-33.7); MEAN PLT VOLUME 6.9 fl (7.5-11.1); MONO % 10.4 % (3.8-10.2); NEUT % 73.6 % (42.8-82.8); PLATELET COUNT 345 10^3/uL (134-434); RBC 2.77 M/mm3 (4.00-5.60); RDW 17.4 % (11.9-15.9); WHITE BLOOD COUNT 8.7 K/mm3 (4.0-10.0)
[2022-05-06 11:02] LABS: ALBUMIN 2.8 g/dl (3.4-5.0); BLOOD UREA NITROGEN 83.1 mg/dL (7-18); CALCIUM 8.4 mg/dL (8.5-10.1)
[2022-05-06 11:05] LABS: PHOSPHOROUS 5.5 mg/dL (2.5-4.9)
[2022-05-06 11:07] LABS: BILIRUBIN,TOTAL 0.4 mg/dL (0.2-1); TOT PROT 6.8 g/dl (6.4-8.2)
[2022-05-06 11:09] LABS: CREATININE 4.6 mg/dL (0.55-1.3)
[2022-05-06] MEDS ORDERED: VANCOMYCIN/WATER FOR INJ (PEG) 1,000 MG/200 ML BAG IVPB ONE (13:29)
[2022-05-06] MEDS ORDERED: CEFTRIAXONE 1 GM/50 ML BAG ONE (13:51)
[2022-05-06] MEDS: CEFTRIAXONE 1 GM in DEXTROSE 5%-WATER - 50 ML IVPB SCH (13:52)
[2022-05-06] MEDS ORDERED: FUROSEMIDE 40 MG/4 ML INJECTABLE VIAL IVPUSH ONE (15:50)
[2022-05-06] MEDS: ALBUTEROL SO4 2.5/IPRATROPIUM 0.5 INH SOL 3 ML VIAL.NEB. NEB SCH ×2 (16:14→21:00)
[2022-05-06] MEDS ORDERED: SODIUM ZIRCONIUM CYCLOSILICATE (LOKELMA) 5 GM PACKET PO ONE (16:28)
[2022-05-06] MEDS: SODIUM ZIRCONIUM CYCLOSILICATE (LOKELMA) 5 GM PACKET PO SCH ×2 (17:53→22:20)
[2022-05-06 18:06] LABS: BASO % 0.9 % (0-2.0); EOS % 1.9 % (0-4.5); HEMOGLOBIN 7.2 GM/dL (11.7-16.9); LYMPH % 16.7 % (8-40); MCH 27.5 pg (25.7-33.7); MCHC 31.3 g/dl (32.0-35.9); MEAN PLT VOLUME 7.3 fl (7.5-11.1); NEUT % 70.5 % (42.8-82.8); PLATELET COUNT 329 10^3/uL (134-434); RBC 2.62 M/mm3 (4.00-5.60); RDW 16.9 % (11.9-15.9); WHITE BLOOD COUNT 8.6 K/mm3 (4.0-10.0)
[2022-05-06 18:33] LABS: ALBUMIN 2.8 g/dl (3.4-5.0); BLOOD UREA NITROGEN 85.8 mg/dL (7-18); CALCIUM 8.4 mg/dL (8.5-10.1)
[2022-05-06 18:37] LABS: CREATININE 4.7 mg/dL (0.55-1.3)
[2022-05-06 18:38] LABS: BILIRUBIN,TOTAL 0.5 mg/dL (0.2-1); TOT PROT 6.7 g/dl (6.4-8.2)
[2022-05-06] MEDS: AZITHROMYCIN IVPB 500 MG in DEXTROSE 5%-WATER - 250 ML IVPB SCH (22:32)
[2022-05-07] MEDS: hydrALAZINE HCL 25 MG TABLET (FP) PO SCH ×4 (06:51→22:00)
[2022-05-07] MEDS: INSULIN (LEVEMIR) 100 UNITS/ML UNITS SQ SCH ×2 (06:54→22:14)
[2022-05-07 08:08] LABS: EOS % 2.7 % (0-4.5); HEMATOCRIT 23.8 % (35.4-49); HEMOGLOBIN 7.2 GM/dL (11.7-16.9); LYMPH % 16.5 % (8-40); MCH 26.7 pg (25.7-33.7); MCHC 30.3 g/dl (32.0-35.9); MEAN PLT VOLUME 7.1 fl (7.5-11.1); MONO % 13.6 % (3.8-10.2); NEUT % 66.2 % (42.8-82.8); PLATELET COUNT 330 10^3/uL (134-434); RBC 2.71 M/mm3 (4.00-5.60); RDW 17.4 % (11.9-15.9); WHITE BLOOD COUNT 7.6 K/mm3 (4.0-10.0)
[2022-05-07] MEDS: ALBUTEROL SO4 2.5/IPRATROPIUM 0.5 INH SOL 3 ML VIAL.NEB. NEB SCH ×3 (08:20→21:00)
[2022-05-07] MEDS ORDERED: FUROSEMIDE 100 MG/10 ML INJECTABLE VIAL IVPUSH SCH (08:31)
[2022-05-07 08:33] LABS: CALCIUM 8.8 mg/dL (8.5-10.1)
[2022-05-07 08:34] LABS: BLOOD UREA NITROGEN 93.5 mg/dL (7-18)
[2022-05-07 08:37] LABS: CREATININE 4.9 mg/dL (0.55-1.3)
[2022-05-07 08:39] LABS: BILIRUBIN,TOTAL 0.6 mg/dL (0.2-1); TOT PROT 6.9 g/dl (6.4-8.2)
[2022-05-07] MEDS: ATORVASTATIN CA 20 MG TABLET (FP) PO SCH (11:07)
[2022-05-07] MEDS: ASPIRIN COATED 81 MG TABLET.EC PO SCH (11:07)
[2022-05-07] MEDS: HEPARIN NA (PORCINE) 5,000 UNITS/ML 1ML VIAL SQ SCH ×2 (11:07→21:50)
[2022-05-07] MEDS: LABETALOL HCL 100 MG, LABETALOL HCL 200 MG PO SCH ×2 (11:07→21:51)
[2022-05-07] MEDS: SODIUM ZIRCONIUM CYCLOSILICATE (LOKELMA) 5 GM PACKET PO SCH ×2 (11:09→22:19)
[2022-05-07] MEDS: CEFTRIAXONE 1 GM in DEXTROSE 5%-WATER - 50 ML IVPB SCH (11:09)
[2022-05-07] MEDS: AZITHROMYCIN IVPB 500 MG/250 ML BAG IVPB SCH (13:10)
[2022-05-07] MEDS: AZITHROMYCIN IVPB 500 MG in DEXTROSE 5%-WATER - 250 ML IVPB SCH (13:11)
[2022-05-07] MEDS: FUROSEMIDE 100 MG/10 ML INJECTABLE VIAL IVPB SCH (14:05)
[2022-05-07] MEDS ORDERED: IRON SUCROSE INJECTION 200 MG in SODIUM CHLORIDE 90 ML IVPB ONE (14:30)
[2022-05-08] MEDS: hydrALAZINE HCL 25 MG TABLET (FP) PO SCH ×4 (06:35→23:30)
[2022-05-08] MEDS: INSULIN (LEVEMIR) 100 UNITS/ML UNITS SQ SCH ×2 (06:36→22:10)
[2022-05-08] MEDS: FUROSEMIDE 100 MG/10 ML INJECTABLE VIAL IVPB SCH ×2 (06:37→13:49)
[2022-05-08 08:25] LABS: BASO % 1.1 % (0-2.0); EOS % 3.1 % (0-4.5); HEMATOCRIT 22.3 % (35.4-49); LYMPH % 19.4 % (8-40); MCH 27.4 pg (25.7-33.7); MCHC 31.4 g/dl (32.0-35.9); MEAN CELL VOLUME 87.4 fl (80-96); MEAN PLT VOLUME 7.6 fl (7.5-11.1); MONO % 14.3 % (3.8-10.2); NEUT % 62.1 % (42.8-82.8); PLATELET COUNT 322 10^3/uL (134-434); RBC 2.55 M/mm3 (4.00-5.60); RDW 17.1 % (11.9-15.9)
[2022-05-08 08:29] LABS: ALBUMIN 2.9 g/dl (3.4-5.0); BLOOD UREA NITROGEN 89.4 mg/dL (7-18); CALCIUM 8.3 mg/dL (8.5-10.1)
[2022-05-08 08:34] LABS: BILIRUBIN,TOTAL 0.4 mg/dL (0.2-1); TOT PROT 6.6 g/dl (6.4-8.2)
[2022-05-08] MEDS: ALBUTEROL SO4 2.5/IPRATROPIUM 0.5 INH SOL 3 ML VIAL.NEB. NEB SCH ×3 (08:37→20:54)
[2022-05-08] MEDS: CEFTRIAXONE 1 GM in DEXTROSE 5%-WATER - 50 ML IVPB SCH (09:47)
[2022-05-08] MEDS: AZITHROMYCIN IVPB 500 MG/250 ML BAG IVPB SCH (09:47)
[2022-05-08] MEDS: LABETALOL HCL 100 MG, LABETALOL HCL 200 MG PO SCH ×2 (09:48→21:55)
[2022-05-08] MEDS: PANTOPRAZOLE 40 MG TABLET PO SCH (09:49)
[2022-05-08] MEDS: ATORVASTATIN CA 20 MG TABLET (FP) PO SCH (09:49)
[2022-05-08] MEDS: ASPIRIN COATED 81 MG TABLET.EC PO SCH (09:49)
[2022-05-08] MEDS: HEPARIN NA (PORCINE) 5,000 UNITS/ML 1ML VIAL SQ SCH ×2 (09:49→21:54)
[2022-05-08] MEDS: SODIUM ZIRCONIUM CYCLOSILICATE (LOKELMA) 5 GM PACKET PO SCH ×2 (09:50→21:54)
[2022-05-08] MEDS ORDERED: IRON SUCROSE INJECTION 200 MG in SODIUM CHLORIDE 90 ML IVPB ONE (10:00)
[2022-05-09] MEDS: FUROSEMIDE 100 MG/10 ML INJECTABLE VIAL IVPB SCH ×2 (06:16→16:18)
[2022-05-09] MEDS: hydrALAZINE HCL 25 MG TABLET (FP) PO SCH ×4 (06:16→23:21)
[2022-05-09] MEDS: INSULIN (LEVEMIR) 100 UNITS/ML UNITS SQ SCH ×2 (06:16→21:28)
[2022-05-09] MEDS: ALBUTEROL SO4 2.5/IPRATROPIUM 0.5 INH SOL 3 ML VIAL.NEB. NEB SCH ×3 (08:15→19:47)
[2022-05-09 08:36] LABS: CALCIUM 8.6 mg/dL (8.5-10.1)
[2022-05-09 08:37] LABS: BLOOD UREA NITROGEN 87.1 mg/dL (7-18)
[2022-05-09 08:40] LABS: CREATININE 5.2 mg/dL (0.55-1.3)
[2022-05-09 08:41] LABS: BILIRUBIN,TOTAL 0.5 mg/dL (0.2-1)
[2022-05-09] MEDS: LABETALOL HCL 100 MG, LABETALOL HCL 200 MG PO SCH ×2 (09:37→21:28)
[2022-05-09] MEDS: ATORVASTATIN CA 20 MG TABLET (FP) PO SCH (09:37)
[2022-05-09] MEDS: PANTOPRAZOLE 40 MG TABLET PO SCH (09:37)
[2022-05-09] MEDS: ASPIRIN COATED 81 MG TABLET.EC PO SCH (09:38)
[2022-05-09] MEDS: SODIUM ZIRCONIUM CYCLOSILICATE (LOKELMA) 5 GM PACKET PO SCH ×2 (09:38→21:28)
[2022-05-09] MEDS: CEFTRIAXONE 1 GM in DEXTROSE 5%-WATER - 50 ML IVPB SCH (09:38)
[2022-05-09] MEDS: HEPARIN NA (PORCINE) 5,000 UNITS/ML 1ML VIAL SQ SCH ×2 (09:38→21:27)
[2022-05-09] MEDS ORDERED: IRON SUCROSE INJECTION 200 MG in SODIUM CHLORIDE 90 ML IVPB ONE (10:00)
[2022-05-09] MEDS: AZITHROMYCIN IVPB 500 MG/250 ML BAG IVPB SCH (11:46)
[2022-05-09] MEDS ORDERED: FUROSEMIDE 40 MG/4 ML INJECTABLE VIAL IVPUSH STA (17:56)
[2022-05-10] MEDS: INSULIN (LEVEMIR) 100 UNITS/ML UNITS SQ SCH (06:02)
[2022-05-10] MEDS: hydrALAZINE HCL 25 MG TABLET (FP) PO SCH ×3 (06:11→17:01)
[2022-05-10] MEDS: FUROSEMIDE 100 MG/10 ML INJECTABLE VIAL IVPB SCH ×2 (06:11→14:00)
[2022-05-10] MEDS: ALBUTEROL SO4 2.5/IPRATROPIUM 0.5 INH SOL 3 ML VIAL.NEB. NEB SCH ×3 (07:45→20:51)
[2022-05-10] MEDS: ATORVASTATIN CA 20 MG TABLET (FP) PO SCH (09:41)
[2022-05-10] MEDS: LABETALOL HCL 100 MG, LABETALOL HCL 200 MG PO SCH ×2 (09:42→21:54)
[2022-05-10] MEDS: ASPIRIN COATED 81 MG TABLET.EC PO SCH (09:42)
[2022-05-10] MEDS: HEPARIN NA (PORCINE) 5,000 UNITS/ML 1ML VIAL SQ SCH ×2 (09:42→21:54)
[2022-05-10] MEDS: PANTOPRAZOLE 40 MG TABLET PO SCH (09:42)
[2022-05-10] MEDS: AZITHROMYCIN IVPB 500 MG/250 ML BAG IVPB SCH (09:43)
[2022-05-10] MEDS: CEFTRIAXONE 1 GM in DEXTROSE 5%-WATER - 50 ML IVPB SCH (09:43)
[2022-05-10 12:07] LABS: EOS % 3.1 % (0-4.5); LYMPH % 12.8 % (8-40); MCH 27.2 pg (25.7-33.7); MCHC 30.9 g/dl (32.0-35.9); MEAN CELL VOLUME 88.1 fl (80-96); MEAN PLT VOLUME 7.4 fl (7.5-11.1); NEUT % 70.1 % (42.8-82.8); PLATELET COUNT 291 10^3/uL (134-434); RDW 17.1 % (11.9-15.9); WHITE BLOOD COUNT 7.2 K/mm3 (4.0-10.0)
[2022-05-10 12:10] LABS: HEMOGLOBIN 6.8 GM/dL (11.7-16.9)
[2022-05-10] MEDS: METOLAZONE 5 MG TABLET PO SCH (12:30)
[2022-05-10 12:53] LABS: CALCIUM 8.2 mg/dL (8.5-10.1)
[2022-05-10 12:54] LABS: ALBUMIN 2.8 g/dl (3.4-5.0); BLOOD UREA NITROGEN 87.3 mg/dL (7-18)
[2022-05-10 12:57] LABS: CREATININE 5.2 mg/dL (0.55-1.3)
[2022-05-10 12:59] LABS: BILIRUBIN,TOTAL 0.4 mg/dL (0.2-1); TOT PROT 6.6 g/dl (6.4-8.2)
[2022-05-10] MEDS ORDERED: EPOETIN ALFA-EPBX 10,000 UNIT/ML VIAL SQ ONE (14:18)
[2022-05-10] MEDS: SODIUM ZIRCONIUM CYCLOSILICATE (LOKELMA) 5 GM PACKET PO SCH ×2 (15:16→21:55)
[2022-05-11] MEDS: hydrALAZINE HCL 25 MG TABLET (FP) PO SCH ×4 (01:50→17:00)
[2022-05-11] MEDS: FUROSEMIDE 100 MG/10 ML INJECTABLE VIAL IVPB SCH ×2 (06:37→13:22)
[2022-05-11] MEDS: INSULIN (LEVEMIR) 100 UNITS/ML UNITS SQ SCH (06:37)
[2022-05-11 07:52] LABS: HEMATOCRIT 24.2 % (35.4-49); HEMOGLOBIN 7.8 GM/dL (11.7-16.9); MEAN CELL VOLUME 87.5 fl (80-96); MEAN PLT VOLUME 7.8 fl (7.5-11.1); PLATELET COUNT 306 10^3/uL (134-434); RBC 2.77 M/mm3 (4.00-5.60); WHITE BLOOD COUNT 8.3 K/mm3 (4.0-10.0)
[2022-05-11] MEDS: ALBUTEROL SO4 2.5/IPRATROPIUM 0.5 INH SOL 3 ML VIAL.NEB. NEB SCH (08:10)
[2022-05-11 08:14] LABS: CALCIUM 8.2 mg/dL (8.5-10.1)
[2022-05-11 08:15] LABS: ALBUMIN 2.9 g/dl (3.4-5.0); BLOOD UREA NITROGEN 87.1 mg/dL (7-18)
[2022-05-11 08:18] LABS: CREATININE 5.2 mg/dL (0.55-1.3)
[2022-05-11 08:20] LABS: BILIRUBIN,TOTAL 0.7 mg/dL (0.2-1); TOT PROT 6.4 g/dl (6.4-8.2)
[2022-05-11] MEDS: CEFTRIAXONE 1 GM in DEXTROSE 5%-WATER - 50 ML IVPB SCH (10:02)
[2022-05-11] MEDS: LABETALOL HCL 100 MG, LABETALOL HCL 200 MG PO SCH ×2 (10:02→22:11)
[2022-05-11] MEDS: ASPIRIN COATED 81 MG TABLET.EC PO SCH (10:03)
[2022-05-11] MEDS: PANTOPRAZOLE 40 MG TABLET PO SCH (10:03)
[2022-05-11] MEDS: HEPARIN NA (PORCINE) 5,000 UNITS/ML 1ML VIAL SQ SCH ×2 (10:03→22:10)
[2022-05-11] MEDS: ATORVASTATIN CA 20 MG TABLET (FP) PO SCH (10:03)
[2022-05-11] MEDS: SODIUM ZIRCONIUM CYCLOSILICATE (LOKELMA) 5 GM PACKET PO SCH ×2 (12:34→22:10)
[2022-05-11] MEDS: METOLAZONE 5 MG TABLET PO SCH (12:37)
[2022-05-12] MEDS: hydrALAZINE HCL 25 MG TABLET (FP) PO SCH ×4 (01:00→17:20)
[2022-05-12] MEDS: FUROSEMIDE 100 MG/10 ML INJECTABLE VIAL IVPB SCH ×2 (06:42→14:07)
[2022-05-12] MEDS: INSULIN (LEVEMIR) 100 UNITS/ML UNITS SQ SCH (06:43)
[2022-05-12 08:38] LABS: EOS % 3.7 % (0-4.5); HEMOGLOBIN 7.3 GM/dL (11.7-16.9); LYMPH % 15.4 % (8-40); MCH 27.9 pg (25.7-33.7); MCHC 31.8 g/dl (32.0-35.9); MEAN CELL VOLUME 87.6 fl (80-96); MEAN PLT VOLUME 7.7 fl (7.5-11.1); MONO % 15.2 % (3.8-10.2); NEUT % 64.7 % (42.8-82.8); PLATELET COUNT 283 10^3/uL (134-434); RBC 2.63 M/mm3 (4.00-5.60); RDW 16.7 % (11.9-15.9); WHITE BLOOD COUNT 7.5 K/mm3 (4.0-10.0)
[2022-05-12 09:25] LABS: BLOOD UREA NITROGEN 85.4 mg/dL (7-18); CALCIUM 7.9 mg/dL (8.5-10.1)
[2022-05-12 09:27] LABS: ALBUMIN 2.8 g/dl (3.4-5.0)
[2022-05-12 09:29] LABS: CREATININE 5.5 mg/dL (0.55-1.3)
[2022-05-12 09:31] LABS: BILIRUBIN,TOTAL 0.7 mg/dL (0.2-1); TOT PROT 6.2 g/dl (6.4-8.2)
[2022-05-12] MEDS: PANTOPRAZOLE 40 MG TABLET PO SCH (10:05)
[2022-05-12] MEDS: LABETALOL HCL 100 MG, LABETALOL HCL 200 MG PO SCH ×2 (10:05→21:35)
[2022-05-12] MEDS: ASPIRIN COATED 81 MG TABLET.EC PO SCH (10:05)
[2022-05-12] MEDS: CEFTRIAXONE 1 GM in DEXTROSE 5%-WATER - 50 ML IVPB SCH (10:05)
[2022-05-12] MEDS: ATORVASTATIN CA 20 MG TABLET (FP) PO SCH (10:05)
[2022-05-12] MEDS: SODIUM ZIRCONIUM CYCLOSILICATE (LOKELMA) 5 GM PACKET PO SCH ×2 (10:06→21:35)
[2022-05-12] MEDS: HEPARIN NA (PORCINE) 5,000 UNITS/ML 1ML VIAL SQ SCH (10:17)
[2022-05-12] MEDS ORDERED: EPOETIN ALFA-EPBX 10,000 UNIT/ML VIAL SQ ONE (11:18)
[2022-05-12] MEDS: METOLAZONE 5 MG TABLET PO SCH (13:30)
[2022-05-13] MEDS: hydrALAZINE HCL 25 MG TABLET (FP) PO SCH ×4 (01:05→17:25)
[2022-05-13] MEDS: FUROSEMIDE 100 MG/10 ML INJECTABLE VIAL IVPB SCH ×2 (06:23→13:53)
[2022-05-13] MEDS: INSULIN (LEVEMIR) 100 UNITS/ML UNITS SQ SCH (06:23)
[2022-05-13 08:33] LABS: INR 1.05 (0.83-1.09); PROTHROMBIN TIME (PATIENT) 12.1 SEC (9.7-13.0)
[2022-05-13 08:35] LABS: BASO % 0.7 % (0-2.0); EOS % 2.4 % (0-4.5); HEMATOCRIT 24.6 % (35.4-49); HEMOGLOBIN 7.8 GM/dL (11.7-16.9); LYMPH % 15.2 % (8-40); MCH 27.9 pg (25.7-33.7); MCHC 31.8 g/dl (32.0-35.9); MEAN CELL VOLUME 87.6 fl (80-96); MEAN PLT VOLUME 7.7 fl (7.5-11.1); MONO % 15.3 % (3.8-10.2); NEUT % 66.4 % (42.8-82.8); PLATELET COUNT 270 10^3/uL (134-434); RDW 16.4 % (11.9-15.9); WHITE BLOOD COUNT 7.3 K/mm3 (4.0-10.0)
[2022-05-13] MEDS ORDERED: SODIUM CHLORIDE 250 ML IV PRN (08:59)
[2022-05-13] MEDS ORDERED: FUROSEMIDE 100 MG/10 ML INJECTABLE VIAL IVPB ONE (09:00)
[2022-05-13 09:01] LABS: CALCIUM 8.1 mg/dL (8.5-10.1)
[2022-05-13 09:02] LABS: BLOOD UREA NITROGEN 89.2 mg/dL (7-18)
[2022-05-13 09:04] LABS: CREATININE 5.9 mg/dL (0.55-1.3)
[2022-05-13] MEDS: PANTOPRAZOLE 40 MG TABLET PO SCH (09:42)
[2022-05-13] MEDS: LABETALOL HCL 100 MG, LABETALOL HCL 200 MG PO SCH ×2 (09:42→21:44)
[2022-05-13] MEDS: ASPIRIN COATED 81 MG TABLET.EC PO SCH (09:42)
[2022-05-13] MEDS: ATORVASTATIN CA 20 MG TABLET (FP) PO SCH (09:42)
[2022-05-13] MEDS: SODIUM ZIRCONIUM CYCLOSILICATE (LOKELMA) 5 GM PACKET PO SCH (09:43)
[2022-05-13] MEDS: CEFTRIAXONE 1 GM in DEXTROSE 5%-WATER - 50 ML IVPB SCH (10:32)
[2022-05-13] MEDS: METOLAZONE 5 MG TABLET PO SCH (13:44)
[2022-05-13] MEDS ORDERED: BISACODYL 5 MG TABLET.DR (FP) PO ONE (16:00)
[2022-05-13] MEDS ORDERED: PEG 3350/NA SULF BICARB CL/KCL 4000 ML SOLN.RECON PO ONE (17:00)
[2022-05-14] MEDS: hydrALAZINE HCL 25 MG TABLET (FP) PO SCH ×4 (01:15→20:52)
[2022-05-14] MEDS: INSULIN (LEVEMIR) 100 UNITS/ML UNITS SQ SCH (06:22)
[2022-05-14] MEDS: INSULIN SLIDING SCALE (NOVOLOG) 1 VIAL SQ SCH ×4 (06:23→21:24)
[2022-05-14 07:46] LABS: BASO % 0.7 % (0-2.0); EOS % 2.2 % (0-4.5); HEMATOCRIT 24.2 % (35.4-49); HEMOGLOBIN 7.5 GM/dL (11.7-16.9); LYMPH % 14.2 % (8-40); MCH 27.5 pg (25.7-33.7); MCHC 31.1 g/dl (32.0-35.9); MEAN CELL VOLUME 88.4 fl (80-96); MEAN PLT VOLUME 7.3 fl (7.5-11.1); MONO % 12.5 % (3.8-10.2); NEUT % 70.4 % (42.8-82.8); PLATELET COUNT 268 10^3/uL (134-434); RBC 2.74 M/mm3 (4.00-5.60); RDW 17.4 % (11.9-15.9); WHITE BLOOD COUNT 6.6 K/mm3 (4.0-10.0)
[2022-05-14 08:13] LABS: CALCIUM 8.1 mg/dL (8.5-10.1)
[2022-05-14 08:14] LABS: ALBUMIN 2.9 g/dl (3.4-5.0); BLOOD UREA NITROGEN 66.6 mg/dL (7-18); MAGNESIUM 2.8 mg/dL (1.8-2.4)
[2022-05-14 08:17] LABS: PHOSPHOROUS 6.5 mg/dL (2.5-4.9)
[2022-05-14 08:18] LABS: TOT PROT 6.6 g/dl (6.4-8.2)
[2022-05-14 08:20] LABS: BILIRUBIN,TOTAL 0.6 mg/dL (0.2-1)
[2022-05-14 08:21] LABS: CREATININE 4.9 mg/dL (0.55-1.3)
[2022-05-14] MEDS: ASPIRIN COATED 81 MG TABLET.EC PO SCH (12:13)
[2022-05-14] MEDS: LABETALOL HCL 100 MG, LABETALOL HCL 200 MG PO SCH ×2 (12:14→21:21)
[2022-05-14] MEDS: ATORVASTATIN CA 20 MG TABLET (FP) PO SCH ×2 (12:14→21:22)
[2022-05-14] MEDS: PANTOPRAZOLE 40 MG TABLET PO SCH (12:15)
[2022-05-14] MEDS ORDERED: FUROSEMIDE 100 MG/10 ML INJECTABLE VIAL IVPB ONE (12:40)
[2022-05-14] MEDS: METOLAZONE 5 MG TABLET PO SCH (12:51)
[2022-05-14] MEDS: FUROSEMIDE 100 MG/10 ML INJECTABLE VIAL IVPB SCH (17:39)
[2022-05-14] MEDS ORDERED: SODIUM CHLORIDE 250 ML IV PRN (19:55)
[2022-05-14] MEDS ORDERED: EPOETIN ALFA-EPBX 10,000 UNIT/ML VIAL IVPUSH ONE (20:00)
[2022-05-15] MEDS: hydrALAZINE HCL 25 MG TABLET (FP) PO SCH ×4 (01:50→17:28)
[2022-05-15] MEDS: INSULIN SLIDING SCALE (NOVOLOG) 1 VIAL SQ SCH ×4 (06:56→22:38)
[2022-05-15] MEDS: INSULIN (LEVEMIR) 100 UNITS/ML UNITS SQ SCH (07:45)
[2022-05-15] MEDS: FUROSEMIDE 100 MG/10 ML INJECTABLE VIAL IVPB SCH ×2 (07:45→14:56)
[2022-05-15] MEDS: PANTOPRAZOLE 40 MG TABLET PO SCH (09:28)
[2022-05-15] MEDS: ASPIRIN COATED 81 MG TABLET.EC PO SCH (09:28)
[2022-05-15] MEDS: LABETALOL HCL 100 MG, LABETALOL HCL 200 MG PO SCH ×2 (09:43→22:36)
[2022-05-15] MEDS ORDERED: ATORVASTATIN CA 20 MG TABLET (FP) PO SCH (10:00)
[2022-05-15] MEDS: METOLAZONE 5 MG TABLET PO SCH (13:40)
[2022-05-15] MEDS ORDERED: FUROSEMIDE 40 MG/4 ML INJECTABLE VIAL ONE ×2 (14:40→14:43)
[2022-05-15] MEDS: ATORVASTATIN CA 20 MG TABLET (FP) PO SCH (22:36)
[2022-05-16] MEDS: hydrALAZINE HCL 25 MG TABLET (FP) PO SCH ×4 (00:41→18:24)
[2022-05-16] MEDS: FUROSEMIDE 100 MG/10 ML INJECTABLE VIAL IVPB SCH ×2 (06:48→14:05)
[2022-05-16] MEDS: INSULIN (LEVEMIR) 100 UNITS/ML UNITS SQ SCH (06:51)
[2022-05-16] MEDS: INSULIN SLIDING SCALE (NOVOLOG) 1 VIAL SQ SCH ×4 (06:51→22:30)
[2022-05-16] MEDS: LABETALOL HCL 100 MG, LABETALOL HCL 200 MG PO SCH ×2 (09:29→22:17)
[2022-05-16] MEDS: ASPIRIN COATED 81 MG TABLET.EC PO SCH (09:29)
[2022-05-16] MEDS: PANTOPRAZOLE 40 MG TABLET PO SCH (09:29)
[2022-05-16 10:07] LABS: BASO % 0.9 % (0-2.0); EOS % 2.2 % (0-4.5); HEMATOCRIT 25.3 % (35.4-49); HEMOGLOBIN 7.7 GM/dL (11.7-16.9); LYMPH % 17.5 % (8-40); MCH 27.3 pg (25.7-33.7); MCHC 30.3 g/dl (32.0-35.9); MEAN CELL VOLUME 90.3 fl (80-96); MEAN PLT VOLUME 7.4 fl (7.5-11.1); NEUT % 61.4 % (42.8-82.8); PLATELET COUNT 287 10^3/uL (134-434); RDW 17.6 % (11.9-15.9); WHITE BLOOD COUNT 7.3 K/mm3 (4.0-10.0)
[2022-05-16 10:54] LABS: ALBUMIN 2.8 g/dl (3.4-5.0); BLOOD UREA NITROGEN 51.3 mg/dL (7-18); CALCIUM 8.3 mg/dL (8.5-10.1)
[2022-05-16 10:57] LABS: CREATININE 4.5 mg/dL (0.55-1.3)
[2022-05-16 10:58] LABS: TOT PROT 6.4 g/dl (6.4-8.2)
[2022-05-16 10:59] LABS: BILIRUBIN,TOTAL 0.5 mg/dL (0.2-1)
[2022-05-16] MEDS ORDERED: INSULIN (NOVOLOG) ASPART 100 UNITS/ML 10ML VIAL ONE ×2 (11:31→18:30)
[2022-05-16] MEDS: METOLAZONE 5 MG TABLET PO SCH (12:56)
[2022-05-16] MEDS: ATORVASTATIN CA 20 MG TABLET (FP) PO SCH (22:17)
[2022-05-17] MEDS: hydrALAZINE HCL 25 MG TABLET (FP) PO SCH ×5 (00:29→23:20)
[2022-05-17] MEDS: INSULIN (LEVEMIR) 100 UNITS/ML UNITS SQ SCH (06:19)
[2022-05-17] MEDS: INSULIN SLIDING SCALE (NOVOLOG) 1 VIAL SQ SCH ×4 (06:20→23:19)
[2022-05-17] MEDS: FUROSEMIDE 100 MG/10 ML INJECTABLE VIAL IVPB SCH (08:19)
[2022-05-17] MEDS: ASPIRIN COATED 81 MG TABLET.EC PO SCH (09:57)
[2022-05-17] MEDS: PANTOPRAZOLE 40 MG TABLET PO SCH (09:57)
[2022-05-17] MEDS: LABETALOL HCL 100 MG, LABETALOL HCL 200 MG PO SCH ×2 (09:57→23:20)
[2022-05-17 11:34] LABS: CALCIUM 8.4 mg/dL (8.5-10.1)
[2022-05-17 11:35] LABS: BLOOD UREA NITROGEN 55.3 mg/dL (7-18)
[2022-05-17 11:38] LABS: CREATININE 5.1 mg/dL (0.55-1.3)
[2022-05-17] MEDS: METOLAZONE 5 MG TABLET PO SCH (13:13)
[2022-05-17] MEDS: FUROSEMIDE 40 MG/4 ML INJECTABLE VIAL IVPB SCH (14:45)
[2022-05-17] MEDS ORDERED: IRON SUCROSE INJECTION 200 MG in SODIUM CHLORIDE 90 ML IVPB ONE (17:00)
[2022-05-17] MEDS: ATORVASTATIN CA 20 MG TABLET (FP) PO SCH (23:20)
[2022-05-18] MEDS: INSULIN (LEVEMIR) 100 UNITS/ML UNITS SQ SCH (07:08)
[2022-05-18] MEDS: FUROSEMIDE 40 MG/4 ML INJECTABLE VIAL IVPB SCH ×2 (07:11→14:53)
[2022-05-18] MEDS: hydrALAZINE HCL 25 MG TABLET (FP) PO SCH ×3 (07:11→18:02)
[2022-05-18] MEDS: INSULIN SLIDING SCALE (NOVOLOG) 1 VIAL SQ SCH ×4 (07:12→22:32)
[2022-05-18] MEDS ORDERED: SODIUM CHLORIDE 250 ML IV PRN ×2 (07:51→15:17)
[2022-05-18] MEDS ORDERED: EPOETIN ALFA-EPBX 10,000 UNIT/ML VIAL IVPUSH ONE (09:00)
[2022-05-18 09:57] LABS: HEMATOCRIT 21.8 % (35.4-49); MCH 28.4 pg (25.7-33.7); MCHC 31.9 g/dl (32.0-35.9); MEAN CELL VOLUME 89.3 fl (80-96); MEAN PLT VOLUME 7.5 fl (7.5-11.1); PLATELET COUNT 257 10^3/uL (134-434); RBC 2.44 M/mm3 (4.00-5.60); RDW 16.6 % (11.9-15.9); WHITE BLOOD COUNT 6.5 K/mm3 (4.0-10.0)
[2022-05-18 10:13] LABS: HEMOGLOBIN 6.9 GM/dL (11.7-16.9)
[2022-05-18 10:18] LABS: CALCIUM 8.2 mg/dL (8.5-10.1)
[2022-05-18 10:19] LABS: BLOOD UREA NITROGEN 58.8 mg/dL (7-18)
[2022-05-18 10:22] LABS: CREATININE 5.3 mg/dL (0.55-1.3)
[2022-05-18] MEDS: LABETALOL HCL 100 MG, LABETALOL HCL 200 MG PO SCH ×2 (11:33→22:31)
[2022-05-18] MEDS: ASPIRIN COATED 81 MG TABLET.EC PO SCH (11:34)
[2022-05-18] MEDS: METOLAZONE 5 MG TABLET PO SCH (13:44)
[2022-05-18] MEDS: PANTOPRAZOLE 40 MG TABLET PO SCH (13:44)
[2022-05-18 15:45] VITALS: BMI 36.2
[2022-05-18] MEDS: SILVER SULFADIAZINE 1% TOP CREAM 400 GM JAR TP SCH (17:18)
[2022-05-18] MEDS: ATORVASTATIN CA 20 MG TABLET (FP) PO SCH (22:32)
[2022-05-19] MEDS: hydrALAZINE HCL 25 MG TABLET (FP) PO SCH ×4 (00:25→18:47)
[2022-05-19] MEDS: FUROSEMIDE 40 MG/4 ML INJECTABLE VIAL IVPB SCH ×2 (06:17→13:45)
[2022-05-19] MEDS: INSULIN (LEVEMIR) 100 UNITS/ML UNITS SQ SCH (06:19)
[2022-05-19] MEDS: INSULIN SLIDING SCALE (NOVOLOG) 1 VIAL SQ SCH ×4 (06:37→22:28)
[2022-05-19] MEDS ORDERED: INSULIN (NOVOLOG) ASPART 100 UNITS/ML 10ML VIAL ONE ×2 (06:41→11:42)
[2022-05-19] MEDS: ASPIRIN COATED 81 MG TABLET.EC PO SCH (10:46)
[2022-05-19] MEDS: PANTOPRAZOLE 40 MG TABLET PO SCH (10:46)
[2022-05-19] MEDS: LABETALOL HCL 100 MG, LABETALOL HCL 200 MG PO SCH ×2 (11:26→22:26)
[2022-05-19] MEDS: SILVER SULFADIAZINE 1% TOP CREAM 400 GM JAR TP SCH (11:27)
[2022-05-19] MEDS: METOLAZONE 5 MG TABLET PO SCH (15:22)
[2022-05-19] MEDS ORDERED: EPOETIN ALFA-EPBX 10,000 UNIT/ML VIAL SQ ONE (17:45)
[2022-05-19] MEDS: ATORVASTATIN CA 20 MG TABLET (FP) PO SCH (22:26)
[2022-05-20] MEDS: hydrALAZINE HCL 25 MG TABLET (FP) PO SCH ×4 (00:12→17:51)
[2022-05-20] MEDS: FUROSEMIDE 40 MG/4 ML INJECTABLE VIAL IVPB SCH (05:37)
[2022-05-20] MEDS: INSULIN (LEVEMIR) 100 UNITS/ML UNITS SQ SCH (06:20)
[2022-05-20] MEDS: INSULIN SLIDING SCALE (NOVOLOG) 1 VIAL SQ SCH ×4 (06:35→22:00)
[2022-05-20] MEDS ORDERED: ceFAZolin SODIUM 1 GM VIAL IVPB ONE (07:14)
[2022-05-20] MEDS ORDERED: LIDOCAINE HCL 1%, 10 MG/ML (20ML VIAL) INF ONE ×2 (07:26)
[2022-05-20] MEDS ORDERED: SODIUM CHLORIDE 250 ML IV PRN (09:20)
[2022-05-20 09:38] LABS: HEMATOCRIT 26.9 % (35.4-49); HEMOGLOBIN 8.8 GM/dL (11.7-16.9); MCH 29.2 pg (25.7-33.7); MCHC 32.6 g/dl (32.0-35.9); MEAN CELL VOLUME 89.4 fl (80-96); MEAN PLT VOLUME 7.3 fl (7.5-11.1); PLATELET COUNT 216 10^3/uL (134-434); RDW 16.1 % (11.9-15.9); WHITE BLOOD COUNT 7.4 K/mm3 (4.0-10.0)
[2022-05-20 10:02] LABS: CALCIUM 8.2 mg/dL (8.5-10.1)
[2022-05-20 10:06] LABS: CREATININE 3.4 mg/dL (0.55-1.3)
[2022-05-20] MEDS: EPOETIN ALFA-EPBX 10,000 UNIT, EPOETIN ALFA-EPBX 2,000 UNIT SQ ONE ×2 (10:56→11:16)
[2022-05-20] MEDS: SILVER SULFADIAZINE 1% TOP CREAM 400 GM JAR TP SCH (11:33)
[2022-05-20] MEDS: PANTOPRAZOLE 40 MG TABLET PO SCH (11:34)
[2022-05-20] MEDS: ASPIRIN COATED 81 MG TABLET.EC PO SCH (11:35)
[2022-05-20] MEDS ORDERED: EPOETIN ALFA-EPBX 10,000 UNIT/ML VIAL SQ ONE ×2 (12:50→21:32)
[2022-05-20] MEDS: METOLAZONE 5 MG TABLET PO SCH (13:11)
[2022-05-20] MEDS ORDERED: INSULIN (NOVOLOG) ASPART 100 UNITS/ML 10ML VIAL ONE (13:20)
[2022-05-20] MEDS: LABETALOL HCL 100 MG, LABETALOL HCL 200 MG PO SCH ×2 (13:29→23:22)
[2022-05-20] MEDS ORDERED: LIDOCAINE HCL 1%, 10 MG/ML (20ML VIAL) ONE (16:14)
[2022-05-20] MEDS ORDERED: HEPARIN NA (PORCINE) 5,000 UNITS/ML 1ML VIAL ONE ×2 (16:14→20:27)
[2022-05-20] MEDS ORDERED: DEXMEDETOMIDINE HCL 200 MCG/2 ML IVPB ONE (18:58)
[2022-05-20] MEDS ORDERED: ceFAZolin SODIUM 1 GM VIAL ONE (19:13)
[2022-05-20] MEDS ORDERED: PROPOFOL 20 ML ONE (19:41)
[2022-05-20] MEDS ORDERED: FENTANYL CITRATE/PF 50 MCG/ML VIAL ONE (19:43)
[2022-05-20] MEDS ORDERED: ACETAMINOPHEN 325 MG TABLET (FP) PO PRN (21:29)
[2022-05-20] MEDS: ATORVASTATIN CA 20 MG TABLET (FP) PO SCH (23:21)
[2022-05-20] MEDS: hydrALAZINE HCL 50 MG TABLET (FP) PO SCH (23:22)
[2022-05-21 04:34] VITALS: RESP 18
[2022-05-21] MEDS: hydrALAZINE HCL 50 MG TABLET (FP) PO SCH ×3 (05:09→17:38)
[2022-05-21] MEDS: INSULIN (LEVEMIR) 100 UNITS/ML UNITS SQ SCH (06:00)
[2022-05-21] MEDS: INSULIN SLIDING SCALE (NOVOLOG) 1 VIAL SQ SCH ×4 (06:00→23:39)
[2022-05-21] MEDS: PANTOPRAZOLE 40 MG TABLET PO SCH (09:26)
[2022-05-21] MEDS: LABETALOL HCL 100 MG, LABETALOL HCL 200 MG PO SCH ×2 (09:27→23:17)
[2022-05-21] MEDS: ASPIRIN COATED 81 MG TABLET.EC PO SCH (09:27)
[2022-05-21] MEDS: SILVER SULFADIAZINE 1% TOP CREAM 400 GM JAR TP SCH (11:00)
[2022-05-21] MEDS: METOLAZONE 5 MG TABLET PO SCH (12:55)
[2022-05-21] MEDS ORDERED: FUROSEMIDE 40 MG/4 ML INJECTABLE VIAL IVPB ONE (15:00)
[2022-05-21] MEDS ORDERED: IRON SUCROSE INJECTION 100 MG in SODIUM CHLORIDE 95 ML IVPB ONE (16:00)
[2022-05-21] MEDS: ATORVASTATIN CA 20 MG TABLET (FP) PO SCH (23:18)
[2022-05-22] MEDS: hydrALAZINE HCL 50 MG TABLET (FP) PO SCH ×3 (02:46→11:03)
[2022-05-22] MEDS: INSULIN SLIDING SCALE (NOVOLOG) 1 VIAL SQ SCH ×2 (07:01→11:02)
[2022-05-22] MEDS: INSULIN (LEVEMIR) 100 UNITS/ML UNITS SQ SCH (07:02)
[2022-05-22] MEDS: ASPIRIN COATED 81 MG TABLET.EC PO SCH (10:07)
[2022-05-22] MEDS: LABETALOL HCL 100 MG, LABETALOL HCL 200 MG PO SCH (10:07)
[2022-05-22] MEDS: PANTOPRAZOLE 40 MG TABLET PO SCH (10:07)
[2022-05-22 11:25] LABS: HEMATOCRIT 28.6 % (35.4-49); MCH 28.6 pg (25.7-33.7); MCHC 31.6 g/dl (32.0-35.9); MEAN CELL VOLUME 90.7 fl (80-96); MEAN PLT VOLUME 7.1 fl (7.5-11.1); PLATELET COUNT 258 10^3/uL (134-434); RBC 3.16 M/mm3 (4.00-5.60); RDW 17.1 % (11.9-15.9); WHITE BLOOD COUNT 7.6 K/mm3 (4.0-10.0)
[2022-05-22 11:49] LABS: CALCIUM 8.2 mg/dL (8.5-10.1)
[2022-05-22 11:50] LABS: BLOOD UREA NITROGEN 28.8 mg/dL (7-18)
[2022-05-22 11:53] LABS: CREATININE 4.5 mg/dL (0.55-1.3)
[2022-05-22] MEDS ORDERED: EPOETIN ALFA-EPBX 10,000 UNIT/ML VIAL SQ ONE (13:30)
[2022-05-22] MEDS: SILVER SULFADIAZINE 1% TOP CREAM 400 GM JAR TP SCH (14:11)
[2022-05-22] MEDS: METOLAZONE 5 MG TABLET PO SCH (14:12)
[2022-05-22] MEDS ORDERED: SODIUM CHLORIDE 250 ML IV PRN (14:58)
[2022-05-22 15:47] VITALS: BP 145/56; PULSE 64; TEMP 98.1
== END 2022-05-22 16:40 | disposition home or self-care (01) | DRG 264 ==
LOC: JER 13:57 → JERBED 16:17 → J4W 05-06 14:25 → J8W 05-14 17:19 → J6S 05-19 01:54
PROVIDERS: ADMIT Family Medicine; ATTEND Family Medicine
PROC: 0WJ93ZZ Inspection of Right Pleural Cavity, Percutaneous Approach (ICD-10-PCS; principal; 2022-05-12)
PROC: 5A1D70Z Performance of Urinary Filtration, Intermittent, Less than 6 Hours Per Day (ICD-10-PCS; 2022-05-13)
PROC: 02HV33Z Insertion of Infusion Device into Superior Vena Cava, Percutaneous Approach (ICD-10-PCS; 2022-05-14)
PROC: B548ZZA Ultrasonography of Superior Vena Cava, Guidance (ICD-10-PCS; 2022-05-14)
PROC: 30233N1 Transfusion of Nonautologous Red Blood Cells into Peripheral Vein, Percutaneous Approach (ICD-10-PCS; 2022-05-18)
PROC: 02HV33Z Insertion of Infusion Device into Superior Vena Cava, Percutaneous Approach (ICD-10-PCS; 2022-05-20)
PROC: B548ZZA Ultrasonography of Superior Vena Cava, Guidance (ICD-10-PCS; 2022-05-20)
PROC: 031809D Bypass Left Brachial Artery to Upper Arm Vein with Autologous Venous Tissue, Open Approach (ICD-10-PCS; 2022-05-20 17:00)
DX: I13.2 Hypertensive heart and chronic kidney disease with heart failure and with stage 5 chronic kidney disease, or end stage renal disease (principal); I50.33 Acute on chronic diastolic (congestive) heart failure; J18.9 Pneumonia, unspecified organism; N18.6 End stage renal disease; N17.9 Acute kidney failure, unspecified; J90 Pleural effusion, not elsewhere classified; E78.5 Hyperlipidemia, unspecified; E87.5 Hyperkalemia; E11.22 Type 2 diabetes mellitus with diabetic chronic kidney disease; Z99.2 Dependence on renal dialysis; D50.9 Iron deficiency anemia, unspecified; J44.9 Chronic obstructive pulmonary disease, unspecified; D63.1 Anemia in chronic kidney disease; Z79.4 Long term (current) use of insulin
CPT/HCPCS: 0241U-QW; 36415; 36430; 36511; 71045-TC-FY; 71046-TC-FY; 71250-TC; 76000-TC-FY; 76775-TC; 76942; 80048; 80053; 81003; 82728; 82962; 83540; 83550; 83735; 84100; 84443; 84484; 85025; 85027; 85610; 85730; 86803; 86850; 86900; 86901; 86922; 87040; 87086; 87340; 87899; 93005; 93010; 93970-TC; 93985; 94640; 94660; 94760; 99285-25; C1750; G0480; J1644; J1756; P9038; P9058; Q5106

== ENCOUNTER 2022-12-21 12:24 | Inpatient (IN) | payer OTHER ==
[2022-12-21] MEDS ORDERED: NOREPINEPHRINE BITARTRATE/D5W 8 MG/250 ML BAG IVPB ONE (12:29)
[2022-12-21] MEDS ORDERED: PIPERACILLIN/TAZOB 4.5 GM 4.5 GM in DEXTROSE 5%-WATER 100 ML IVPB ONE (12:33)
[2022-12-21] MEDS ORDERED: VANCOMYCIN 1,000 MG in DEXTROSE 5%-WATER - 250 ML IVPB ONE (12:33)
[2022-12-21] MEDS ORDERED: PIPERACILLIN/TAZOB 4.5 GM 4.5 GM/100 ML BAG IVPB ONE (12:34)
[2022-12-21 12:49] VITALS: BMI 31.8
[2022-12-21 13:06] LABS: VENOUS BASE EXCESS 6.9 mmol/L (-2-2); VENOUS O2 SATURATION 28.9 % (70-80); VENOUS PCO2 61.9 mmHg (38-52); VENOUS PH 7.356 (7.310-7.410)
[2022-12-21 13:09] LABS: ARTERIAL BLD GAS O2 SATURATION 95.5 % (95-98); ARTERIAL BLOOD GAS BASE EXCESS 7.9 mmol/L (-2-2); ARTERIAL BLOOD GAS PO2 73.5 mmHg (80-100); ARTERIAL BLOOD GAS pH 7.471 (7.350-7.450)
[2022-12-21 13:10] LABS: ALLENS TEST POSITIVE; VENT MODE AC; VENT RATE 20
[2022-12-21 13:15] LABS: BASO % 0.3 % (0-2.0); EOS % 0.2 % (0-4.5); HEMATOCRIT 23.5 % (35.4-49); HEMOGLOBIN 7.6 GM/dL (11.7-16.9); LYMPH % 12.8 % (8-40); MCH 27.9 pg (25.7-33.7); MCHC 32.4 g/dl (32.0-35.9); MEAN CELL VOLUME 85.9 fl (80-96); MEAN PLT VOLUME 6.8 fl (7.5-11.1); MONO % 5.1 % (3.8-10.2); NEUT % 81.6 % (42.8-82.8); PLATELET COUNT 280 10^3/uL (134-434); RBC 2.73 M/mm3 (4.00-5.60); RDW 16.4 % (11.9-15.9)
[2022-12-21 13:21] LABS: INR 2.2 (0.83-1.09); PROTHROMBIN TIME (PATIENT) 25.3 SEC (9.7-13.0)
[2022-12-21 13:23] LABS: ACTIVATED PTT 33.3 SECONDS (25.2-36.5)
[2022-12-21 13:27] LABS: EPI CELLS 13 /uL (0-25.1); HYALINE CASTS 1 /uL (0-3.1); PH,URINE 6.5 (5.0-8.0); URINE APPEARANCE CLEAR; URINE BACTERIA 29 /uL (0-1359); URINE BILIRUBIN NEGATIVE (NEGATIVE); URINE COLOR DK YELLOW; URINE GLUCOSE (UA) TRACE (NEGATIVE); URINE KETONE NEGATIVE (NEGATIVE); URINE LEUK ESTERASE 1+ (NEGATIVE); URINE NITRITE NEGATIVE (NEGATIVE); URINE PROTEIN 3+ (NEGATIVE); URINE UROBILINOGEN 0.2 mg/dL (0.2-1.0); URINE WBC 118 /uL (0-25.8)
[2022-12-21] MEDS ORDERED: VANCOMYCIN/WATER FOR INJ (PEG) 1,000 MG/200 ML BAG IVPB ONE (13:28)
[2022-12-21 13:34] LABS: URINE RBC 65 /uL (0-23.9)
[2022-12-21 13:39] LABS: LACTIC ACID 2.1 mmol/L (0.4-2.0)
[2022-12-21 13:54] LABS: POTASSIUM 3.2 mmol/L (3.5-5.1)
[2022-12-21 13:56] LABS: CALCIUM 8.1 mg/dL (8.5-10.1)
[2022-12-21 13:58] LABS: ALBUMIN 1.8 g/dl (3.4-5.0); BLOOD UREA NITROGEN 38.4 mg/dL (7-18)
[2022-12-21 14:00] LABS: CREATININE 2.3 mg/dL (0.55-1.3)
[2022-12-21 14:02] LABS: BILIRUBIN,TOTAL 0.6 mg/dL (0.2-1); TOT PROT 6.1 g/dl (6.4-8.2)
[2022-12-21] MEDS: NOREPINEPHRINE BITARTRATE/D5W 8 MG/250 ML BAG IVPB SCH (15:00)
[2022-12-21] MEDS ORDERED: SODIUM CHLORIDE 1,000 ML IV SCH (15:45)
[2022-12-21] MEDS ORDERED: VANCOMYCIN 1,000 MG in DEXTROSE 5%-WATER - 250 ML IVPB SCH (16:30)
[2022-12-21] MEDS ORDERED: HEPARIN NA (PORCINE) 5,000 UNITS/ML 1ML VIAL SQ SCH (22:00)
[2022-12-21] MEDS ORDERED: CHLORHEXIDINE GLUCONATE 4% CLEANSER FOR DECOLONIZATION TP SCH (22:00)
[2022-12-21] MEDS ORDERED: INSULIN SLIDING SCALE (NOVOLOG) 1 VIAL SQ SCH (22:00)
[2022-12-21] MEDS ORDERED: APIXABAN 5 MG TABLET PEG SCH (22:00)
[2022-12-21] MEDS ORDERED: PIPERACILLIN/TAZOB 2.25 GM 2.25 GM in DEXTROSE 5%-WATER - 50 ML IVPB SCH (22:00)
[2022-12-21] MEDS: MUPIROCIN 2% TOPICAL OINTMENT FOR DECOLONIZATION NS SCH (22:03)
[2022-12-21] MEDS: levETIRAcetam 500 MG/5 ML ORAL SOLUTION (UNIT-DOSE CUPS) PEG SCH (22:05)
[2022-12-21] MEDS: PIPERACILLIN/TAZOB 2.25 GM 2.25 GM in DEXTROSE 5%-WATER - 50 ML IVPB SCH (22:05)
[2022-12-21] MEDS: INSULIN SLIDING SCALE (NOVOLOG) 1 VIAL SQ SCH (22:12)
[2022-12-22] MEDS: INSULIN SLIDING SCALE (NOVOLOG) 1 VIAL SQ SCH ×4 (04:01→22:17)
[2022-12-22 07:10] LABS: BASO % 0.4 % (0-2.0); EOS % 0.3 % (0-4.5); HEMATOCRIT 19.3 % (35.4-49); LYMPH % 13.3 % (8-40); MCH 28.9 pg (25.7-33.7); MCHC 33.4 g/dl (32.0-35.9); MEAN CELL VOLUME 86.6 fl (80-96); MEAN PLT VOLUME 7.1 fl (7.5-11.1); MONO % 5.6 % (3.8-10.2); NEUT % 80.4 % (42.8-82.8); PLATELET COUNT 269 10^3/uL (134-434); RBC 2.23 M/mm3 (4.00-5.60); RDW 16.4 % (11.9-15.9); WHITE BLOOD COUNT 9.4 K/mm3 (4.0-10.0)
[2022-12-22 07:18] LABS: HEMOGLOBIN 6.4 GM/dL (11.7-16.9)
[2022-12-22 07:36] LABS: POTASSIUM 3.2 mmol/L (3.5-5.1)
[2022-12-22 07:43] LABS: ALBUMIN 1.5 g/dl (3.4-5.0); BLOOD UREA NITROGEN 46.2 mg/dL (7-18); CALCIUM 7.9 mg/dL (8.5-10.1); MAGNESIUM 2.4 mg/dL (1.8-2.4)
[2022-12-22 07:46] LABS: CREATININE 2.6 mg/dL (0.55-1.3); PHOSPHOROUS 1.5 mg/dL (2.5-4.9)
[2022-12-22 07:48] LABS: BILIRUBIN,TOTAL 0.6 mg/dL (0.2-1); TOT PROT 5.5 g/dl (6.4-8.2)
[2022-12-22] MEDS ORDERED: POTASSIUM CHLORIDE ORAL LIQUID 20 MEQ/15 ML PO ONE (09:00)
[2022-12-22] MEDS: MUPIROCIN 2% TOPICAL OINTMENT FOR DECOLONIZATION NS SCH (09:29)
[2022-12-22] MEDS: PIPERACILLIN/TAZOB 2.25 GM 2.25 GM in DEXTROSE 5%-WATER - 50 ML IVPB SCH ×2 (09:29→18:03)
[2022-12-22] MEDS: levETIRAcetam 500 MG/5 ML ORAL SOLUTION (UNIT-DOSE CUPS) PEG SCH ×2 (09:30→22:18)
[2022-12-22] MEDS ORDERED: AMIODARONE HCL 200 MG TABLET PEG SCH (10:00)
[2022-12-22] MEDS ORDERED: PANTOPRAZOLE SODIUM 40 MG VIAL IVPUSH SCH (10:00)
[2022-12-22] MEDS ORDERED: VANCOMYCIN/WATER FOR INJ (PEG) 1,000 MG/200 ML BAG IVPB SCH ×2 (10:00)
[2022-12-22] MEDS ORDERED: ATORVASTATIN CA 20 MG TABLET (FP) PEG SCH (10:00)
[2022-12-22] MEDS ORDERED: PANTOPRAZOLE 40 MG TABLET PO SCH (10:00)
[2022-12-22] MEDS ORDERED: SODIUM CHLORIDE 250 ML IV PRN (13:45)
[2022-12-22] MEDS ORDERED: EPOETIN ALFA-EPBX 10,000 UNIT/ML VIAL SQ ONE (14:00)
[2022-12-22] MEDS: ALBUMIN HUMAN 25% 12.5 GM/50 ML VIAL IV SCH ×4 (14:45→16:15)
[2022-12-22] MEDS: NOREPINEPHRINE BITARTRATE/D5W 8 MG/250 ML BAG IVPB SCH (17:28)
[2022-12-22] MEDS ORDERED: NOREPINEPHRINE BITARTRATE/D5W 8 MG/250 ML BAG IVPB SCH (17:44)
[2022-12-23] MEDS: PIPERACILLIN/TAZOB 2.25 GM 2.25 GM in DEXTROSE 5%-WATER - 50 ML IVPB SCH ×3 (01:48→17:32)
[2022-12-23] MEDS: INSULIN SLIDING SCALE (NOVOLOG) 1 VIAL SQ SCH ×4 (06:22→22:55)
[2022-12-23] MEDS: levETIRAcetam 500 MG/5 ML ORAL SOLUTION (UNIT-DOSE CUPS) PEG SCH ×2 (11:17→22:53)
[2022-12-23] MEDS: PANTOPRAZOLE SODIUM 40 MG VIAL IVPUSH SCH (11:18)
[2022-12-23] MEDS: ATORVASTATIN CA 20 MG TABLET (FP) PEG SCH (11:18)
[2022-12-23] MEDS: AMIODARONE HCL 200 MG TABLET PEG SCH (11:18)
[2022-12-23] MEDS ORDERED: SODIUM CHLORIDE 250 ML IV PRN (13:42)
[2022-12-23 16:47] LABS: BASO % 0.8 % (0-2.0); EOS % 0.3 % (0-4.5); HEMATOCRIT 24.5 % (35.4-49); LYMPH % 15.8 % (8-40); MCH 27.7 pg (25.7-33.7); MCHC 32.7 g/dl (32.0-35.9); MEAN CELL VOLUME 84.6 fl (80-96); MEAN PLT VOLUME 6.9 fl (7.5-11.1); MONO % 5.8 % (3.8-10.2); NEUT % 77.3 % (42.8-82.8); PLATELET COUNT 305 10^3/uL (134-434); RBC 2.89 M/mm3 (4.00-5.60); RDW 16.6 % (11.9-15.9); WHITE BLOOD COUNT 10.6 K/mm3 (4.0-10.0)
[2022-12-23 17:22] LABS: ALBUMIN 1.5 g/dl (3.4-5.0); ALK PHOS 169 U/L (45-117); ANION GAP 8 MMOL/L (8-16); BILIRUBIN,TOTAL 0.6 mg/dL (0.2-1); BLOOD UREA NITROGEN 32.3 mg/dL (7-18); CHLORIDE 100 mmol/L (98-107); CO2 30 mmol/L (21-32); CREATININE 2.2 mg/dL (0.55-1.3); GLUCOSE,RANDOM 178 mg/dL (74-106); MAGNESIUM 2.2 mg/dL (1.8-2.4); POTASSIUM 3.7 mmol/L (3.5-5.1); SGOT/AST 21 U/L (15-37); SGPT/ALT 22 U/L (13-61); SODIUM 138 mmol/L (136-145); TOT PROT 5.6 g/dl (6.4-8.2)
[2022-12-23] MEDS ORDERED: SODIUM PHOSPHATE - 30 MM in DEXTROSE 5%-WATER - 250 ML IVPB ONE (17:47)
[2022-12-24] MEDS: PIPERACILLIN/TAZOB 2.25 GM 2.25 GM in DEXTROSE 5%-WATER - 50 ML IVPB SCH ×2 (03:19→11:37)
[2022-12-24] MEDS: INSULIN SLIDING SCALE (NOVOLOG) 1 VIAL SQ SCH ×4 (06:25→21:48)
[2022-12-24] MEDS ORDERED: SODIUM CHLORIDE 250 ML IV PRN (07:48)
[2022-12-24 08:52] LABS: HEMATOCRIT 23.9 % (35.4-49); MCH 27.6 pg (25.7-33.7); MCHC 33.3 g/dl (32.0-35.9); MEAN PLT VOLUME 6.7 fl (7.5-11.1); PLATELET COUNT 291 10^3/uL (134-434); RBC 2.88 M/mm3 (4.00-5.60); RDW 16.5 % (11.9-15.9); WHITE BLOOD COUNT 9.1 K/mm3 (4.0-10.0)
[2022-12-24] MEDS ORDERED: EPOETIN ALFA-EPBX 10,000 UNIT/ML VIAL IVPUSH ONE (09:00)
[2022-12-24] MEDS: ALBUMIN HUMAN 25% 12.5 GM/50 ML VIAL IV SCH ×4 (09:00→10:30)
[2022-12-24 09:11] LABS: POTASSIUM 3.5 mmol/L (3.5-5.1)
[2022-12-24 09:14] LABS: CALCIUM 7.5 mg/dL (8.5-10.1)
[2022-12-24 09:15] LABS: ALBUMIN 1.5 g/dl (3.4-5.0); BLOOD UREA NITROGEN 43.3 mg/dL (7-18)
[2022-12-24 09:18] LABS: BILIRUBIN,TOTAL 0.5 mg/dL (0.2-1); CREATININE 2.6 mg/dL (0.55-1.3)
[2022-12-24 09:20] LABS: TOT PROT 5.5 g/dl (6.4-8.2)
[2022-12-24] MEDS: PANTOPRAZOLE SODIUM 40 MG VIAL IVPUSH SCH (11:37)
[2022-12-24] MEDS: levETIRAcetam 500 MG/5 ML ORAL SOLUTION (UNIT-DOSE CUPS) PEG SCH ×2 (11:37→21:48)
[2022-12-24] MEDS: AMIODARONE HCL 200 MG TABLET PEG SCH (11:37)
[2022-12-24] MEDS: ATORVASTATIN CA 20 MG TABLET (FP) PEG SCH (11:37)
[2022-12-24] MEDS: AMINO ACIDS/PROTEIN HYDROLYS 30 ML LIQUID.PKT PO SCH (17:24)
[2022-12-24] MEDS: CEFTRIAXONE 1 GM in DEXTROSE 5%-WATER - 50 ML IVPB SCH (17:24)
[2022-12-25] MEDS: INSULIN (LEVEMIR) 100 UNITS/ML UNITS SQ SCH (06:00)
[2022-12-25] MEDS: INSULIN SLIDING SCALE (NOVOLOG) 1 VIAL SQ SCH ×3 (06:01→16:48)
[2022-12-25] MEDS: AMINO ACIDS/PROTEIN HYDROLYS 30 ML LIQUID.PKT PO SCH ×2 (08:23→16:48)
[2022-12-25] MEDS: CEFTRIAXONE 1 GM in DEXTROSE 5%-WATER - 50 ML IVPB SCH (09:47)
[2022-12-25] MEDS: levETIRAcetam 500 MG/5 ML ORAL SOLUTION (UNIT-DOSE CUPS) PEG SCH ×2 (09:47→22:00)
[2022-12-25] MEDS: AMIODARONE HCL 200 MG TABLET PEG SCH (09:49)
[2022-12-25] MEDS: VITAMIN B COMP W-C 1 EA TABLET (NEPHRO-VITE) PO SCH (09:49)
[2022-12-25] MEDS: ATORVASTATIN CA 20 MG TABLET (FP) PEG SCH (09:49)
[2022-12-25] MEDS: PANTOPRAZOLE SODIUM 40 MG VIAL IVPUSH SCH (09:50)
[2022-12-25] MEDS: MUPIROCIN 2% TOPICAL OINTMENT 22 GM TUBE TP SCH ×3 (11:30→22:01)
[2022-12-26] MEDS: INSULIN SLIDING SCALE (NOVOLOG) 1 VIAL SQ SCH ×3 (06:00→17:10)
[2022-12-26] MEDS: INSULIN (LEVEMIR) 100 UNITS/ML UNITS SQ SCH (06:00)
[2022-12-26] MEDS: MUPIROCIN 2% TOPICAL OINTMENT 22 GM TUBE TP SCH ×3 (06:00→22:02)
[2022-12-26] MEDS: AMINO ACIDS/PROTEIN HYDROLYS 30 ML LIQUID.PKT PO SCH (08:39)
[2022-12-26] MEDS: PANTOPRAZOLE SODIUM 40 MG VIAL IVPUSH SCH (10:36)
[2022-12-26] MEDS: levETIRAcetam 500 MG/5 ML ORAL SOLUTION (UNIT-DOSE CUPS) PEG SCH ×2 (10:36→22:11)
[2022-12-26] MEDS: AMIODARONE HCL 200 MG TABLET PEG SCH (10:36)
[2022-12-26] MEDS: CEFTRIAXONE 1 GM in DEXTROSE 5%-WATER - 50 ML IVPB SCH (10:36)
[2022-12-26] MEDS: ATORVASTATIN CA 20 MG TABLET (FP) PEG SCH (10:36)
[2022-12-26] MEDS: VITAMIN B COMP W-C 1 EA TABLET (NEPHRO-VITE) PO SCH (10:37)
[2022-12-27] MEDS: MUPIROCIN 2% TOPICAL OINTMENT 22 GM TUBE TP SCH ×3 (06:03→22:59)
[2022-12-27] MEDS: AMINO ACIDS/PROTEIN HYDROLYS 30 ML LIQUID.PKT PO SCH ×3 (06:03→20:25)
[2022-12-27] MEDS: INSULIN SLIDING SCALE (NOVOLOG) 1 VIAL SQ SCH ×3 (06:04→18:03)
[2022-12-27] MEDS ORDERED: SODIUM CHLORIDE 250 ML IV PRN (07:30)
[2022-12-27] MEDS: INSULIN (LEVEMIR) 100 UNITS/ML UNITS SQ SCH (07:35)
[2022-12-27] MEDS: ALBUMIN HUMAN 25% 12.5 GM/50 ML VIAL IV SCH ×4 (08:45→11:55)
[2022-12-27] MEDS ORDERED: EPOETIN ALFA-EPBX 10,000 UNIT/ML VIAL SQ ONE (09:00)
[2022-12-27 09:03] LABS: HEMATOCRIT 27.5 % (35.4-49); MCH 28.1 pg (25.7-33.7); MCHC 32.9 g/dl (32.0-35.9); MEAN CELL VOLUME 85.3 fl (80-96); MEAN PLT VOLUME 7.2 fl (7.5-11.1); PLATELET COUNT 315 10^3/uL (134-434); RBC 3.22 M/mm3 (4.00-5.60); RDW 16.5 % (11.9-15.9); WHITE BLOOD COUNT 11.6 K/mm3 (4.0-10.0)
[2022-12-27 09:33] LABS: POTASSIUM 3.7 mmol/L (3.5-5.1)
[2022-12-27 09:36] LABS: ALBUMIN 1.6 g/dl (3.4-5.0); BLOOD UREA NITROGEN 65.4 mg/dL (7-18)
[2022-12-27 09:39] LABS: CREATININE 2.8 mg/dL (0.55-1.3)
[2022-12-27 09:40] LABS: BILIRUBIN,TOTAL 0.4 mg/dL (0.2-1)
[2022-12-27 09:42] LABS: TOT PROT 6.1 g/dl (6.4-8.2)
[2022-12-27] MEDS: PANTOPRAZOLE SODIUM 40 MG VIAL IVPUSH SCH (11:58)
[2022-12-27] MEDS: CEFTRIAXONE 1 GM in DEXTROSE 5%-WATER - 50 ML IVPB SCH (12:02)
[2022-12-27] MEDS: ATORVASTATIN CA 20 MG TABLET (FP) PEG SCH (14:06)
[2022-12-27] MEDS: levETIRAcetam 500 MG/5 ML ORAL SOLUTION (UNIT-DOSE CUPS) PEG SCH ×2 (14:06→22:59)
[2022-12-27] MEDS: AMIODARONE HCL 200 MG TABLET PEG SCH (14:06)
[2022-12-27] MEDS: VITAMIN B COMP W-C 1 EA TABLET (NEPHRO-VITE) PO SCH (14:06)
[2022-12-27] MEDS ORDERED: COLLAGENASE CLOSTRIDIUM HIST. 30 GRAMS TUBE TP SCH (15:00)
[2022-12-27] MEDS: POVIDONE-IODINE 10% SOLN 118 ML BOTTLE TP ONE ×2 (18:10→18:37)
[2022-12-28] MEDS: MUPIROCIN 2% TOPICAL OINTMENT 22 GM TUBE TP SCH ×3 (06:46→21:50)
[2022-12-28] MEDS: INSULIN (LEVEMIR) 100 UNITS/ML UNITS SQ SCH (06:47)
[2022-12-28] MEDS: INSULIN SLIDING SCALE (NOVOLOG) 1 VIAL SQ SCH ×3 (06:47→18:51)
[2022-12-28] MEDS: ATORVASTATIN CA 20 MG TABLET (FP) PEG SCH (09:33)
[2022-12-28] MEDS: PANTOPRAZOLE SODIUM 40 MG VIAL IVPUSH SCH (09:33)
[2022-12-28] MEDS: AMINO ACIDS/PROTEIN HYDROLYS 30 ML LIQUID.PKT PO SCH ×2 (09:33→18:53)
[2022-12-28] MEDS: VITAMIN B COMP W-C 1 EA TABLET (NEPHRO-VITE) PO SCH (09:33)
[2022-12-28] MEDS: levETIRAcetam 500 MG/5 ML ORAL SOLUTION (UNIT-DOSE CUPS) PEG SCH ×2 (09:33→21:51)
[2022-12-28] MEDS: CEFTRIAXONE 1 GM in DEXTROSE 5%-WATER - 50 ML IVPB SCH (09:34)
[2022-12-28] MEDS: AMIODARONE HCL 200 MG TABLET PEG SCH (09:34)
[2022-12-28] MEDS ORDERED: POVIDONE-IODINE 10% SOLN 118 ML BOTTLE TP ONE (10:49)
[2022-12-28] MEDS ORDERED: PHENYLEPHRINE HCL 10 MG/1 ML SINGLE DOSE VIAL ONE (13:15)
[2022-12-28] MEDS ORDERED: MIDAZOLAM HCL 2 MG/2 ML SINGLE DOSE VIAL ONE (13:15)
[2022-12-28] MEDS ORDERED: SODIUM CHLORIDE 250 ML IV PRN ×2 (13:21→15:32)
[2022-12-28] MEDS ORDERED: LIDOCAINE HCL 1%, 10 MG/ML (10ML VIAL) MDV ONE (13:44)
[2022-12-28] MEDS ORDERED: BUPIVACAINE HCL/PF 0.5% (5MG/ML) 10 ML VIAL ONE (13:45)
[2022-12-28] MEDS ORDERED: BUPIVACAINE HCL 0.5% 250 MG/50 ML VIAL NR ONE ×2 (14:29)
[2022-12-28] MEDS ORDERED: LIDOCAINE HCL 1% PRESERVATIVE FREE - 30ML VIAL IJ ONE (14:29)
[2022-12-28] MEDS ORDERED: ACETAMINOPHEN 1000 MG/100 ML BAG IVPB ONE (15:15)
[2022-12-28] MEDS: ACETAMINOPHEN 1000 MG/100 ML BAG IVPB SCH ×2 (16:22→21:49)
[2022-12-28] MEDS: AMINO ACIDS 4.25%/D5W 1,000 ML IV SCH (21:48)
[2022-12-29] MEDS: ACETAMINOPHEN 1000 MG/100 ML BAG IVPB SCH ×3 (03:20→19:19)
[2022-12-29] MEDS: MUPIROCIN 2% TOPICAL OINTMENT 22 GM TUBE TP SCH ×3 (06:29→22:10)
[2022-12-29] MEDS: INSULIN (LEVEMIR) 100 UNITS/ML UNITS SQ SCH (06:59)
[2022-12-29] MEDS: INSULIN SLIDING SCALE (NOVOLOG) 1 VIAL SQ SCH ×2 (07:00→16:29)
[2022-12-29] MEDS ORDERED: EPOETIN ALFA-EPBX 10,000 UNIT/ML VIAL IVPUSH ONE (08:30)
[2022-12-29 09:09] LABS: HEMATOCRIT 24.1 % (35.4-49); HEMOGLOBIN 8.1 GM/dL (11.7-16.9); MCH 27.7 pg (25.7-33.7); MCHC 33.5 g/dl (32.0-35.9); MEAN CELL VOLUME 82.9 fl (80-96); MEAN PLT VOLUME 6.9 fl (7.5-11.1); PLATELET COUNT 274 10^3/uL (134-434); RBC 2.91 M/mm3 (4.00-5.60); RDW 16.9 % (11.9-15.9); WHITE BLOOD COUNT 9.7 K/mm3 (4.0-10.0)
[2022-12-29 09:32] LABS: POTASSIUM 3.1 mmol/L (3.5-5.1)
[2022-12-29 09:40] LABS: BLOOD UREA NITROGEN 54.1 mg/dL (7-18); CALCIUM 8.1 mg/dL (8.5-10.1)
[2022-12-29 09:43] LABS: CREATININE 2.6 mg/dL (0.55-1.3)
[2022-12-29] MEDS ORDERED: POTASSIUM CHLORIDE ORAL LIQUID 20 MEQ/15 ML PO ONE (12:28)
[2022-12-29] MEDS: CEFTRIAXONE 1 GM in DEXTROSE 5%-WATER - 50 ML IVPB SCH (12:41)
[2022-12-29] MEDS: AMINO ACIDS/PROTEIN HYDROLYS 30 ML LIQUID.PKT PO SCH ×2 (12:41→18:19)
[2022-12-29] MEDS: levETIRAcetam 500 MG/5 ML ORAL SOLUTION (UNIT-DOSE CUPS) PEG SCH ×2 (12:41→22:10)
[2022-12-29] MEDS: PANTOPRAZOLE SODIUM 40 MG VIAL IVPUSH SCH (12:41)
[2022-12-29] MEDS: AMIODARONE HCL 200 MG TABLET PEG SCH (12:41)
[2022-12-29] MEDS: VITAMIN B COMP W-C 1 EA TABLET (NEPHRO-VITE) PO SCH (12:41)
[2022-12-29] MEDS ORDERED: EPOETIN ALFA-EPBX 10,000 UNIT/ML VIAL SQ ONE (13:21)
[2022-12-29] MEDS: AMINO ACIDS 4.25%/D5W 1,000 ML IV SCH (18:50)
[2022-12-29] MEDS ORDERED: ACETAMINOPHEN 1000 MG/100 ML BAG IVPB SCH (19:00)
[2022-12-29] MEDS: ATORVASTATIN CA 20 MG TABLET (FP) PEG SCH (22:10)
[2022-12-30] MEDS: INSULIN (LEVEMIR) 100 UNITS/ML UNITS SQ SCH (06:01)
[2022-12-30] MEDS: INSULIN SLIDING SCALE (NOVOLOG) 1 VIAL SQ SCH ×3 (06:01→16:41)
[2022-12-30] MEDS: MUPIROCIN 2% TOPICAL OINTMENT 22 GM TUBE TP SCH ×3 (06:01→21:52)
[2022-12-30] MEDS: VITAMIN B COMP W-C 1 EA TABLET (NEPHRO-VITE) PO SCH (09:42)
[2022-12-30] MEDS: AMINO ACIDS/PROTEIN HYDROLYS 30 ML LIQUID.PKT PO SCH ×2 (09:42→16:41)
[2022-12-30] MEDS: AMIODARONE HCL 200 MG TABLET PEG SCH (09:42)
[2022-12-30] MEDS: CEFTRIAXONE 1 GM in DEXTROSE 5%-WATER - 50 ML IVPB SCH (09:43)
[2022-12-30] MEDS: PANTOPRAZOLE SODIUM 40 MG VIAL IVPUSH SCH (09:43)
[2022-12-30] MEDS: levETIRAcetam 500 MG/5 ML ORAL SOLUTION (UNIT-DOSE CUPS) PEG SCH ×2 (09:43→22:06)
[2022-12-30 11:57] LABS: BASO % 0.6 % (0-2.0); EOS % 0.5 % (0-4.5); HEMATOCRIT 26.6 % (35.4-49); HEMOGLOBIN 8.6 GM/dL (11.7-16.9); LYMPH % 16.4 % (8-40); MCH 26.9 pg (25.7-33.7); MCHC 32.2 g/dl (32.0-35.9); MEAN CELL VOLUME 83.5 fl (80-96); MEAN PLT VOLUME 6.8 fl (7.5-11.1); MONO % 6.5 % (3.8-10.2); PLATELET COUNT 261 10^3/uL (134-434); RBC 3.19 M/mm3 (4.00-5.60); RDW 17.3 % (11.9-15.9); WHITE BLOOD COUNT 12.8 K/mm3 (4.0-10.0)
[2022-12-30] MEDS: POVIDONE-IODINE 10% SOLN 118 ML BOTTLE TP SCH (15:30)
[2022-12-30] MEDS: AMINO ACIDS 4.25%/D5W 1,000 ML IV SCH (17:47)
[2022-12-30] MEDS: ATORVASTATIN CA 20 MG TABLET (FP) PEG SCH (22:06)
[2022-12-31] MEDS: MUPIROCIN 2% TOPICAL OINTMENT 22 GM TUBE TP SCH ×3 (05:53→21:59)
[2022-12-31] MEDS: INSULIN (LEVEMIR) 100 UNITS/ML UNITS SQ SCH (06:09)
[2022-12-31] MEDS: INSULIN SLIDING SCALE (NOVOLOG) 1 VIAL SQ SCH ×3 (06:10→17:20)
[2022-12-31] MEDS ORDERED: SODIUM CHLORIDE 250 ML IV PRN (08:00)
[2022-12-31] MEDS: AMINO ACIDS/PROTEIN HYDROLYS 30 ML LIQUID.PKT PO SCH ×2 (08:13→18:33)
[2022-12-31 08:44] LABS: HEMOGLOBIN 7.6 GM/dL (11.7-16.9); MCHC 31.6 g/dl (32.0-35.9); MEAN CELL VOLUME 85.4 fl (80-96); MEAN PLT VOLUME 7.3 fl (7.5-11.1); PLATELET COUNT 281 10^3/uL (134-434); RDW 16.5 % (11.9-15.9); WHITE BLOOD COUNT 11.8 K/mm3 (4.0-10.0)
[2022-12-31] MEDS ORDERED: EPOETIN ALFA-EPBX 10,000 UNIT/ML VIAL IVPUSH ONE (09:00)
[2022-12-31 09:03] LABS: ALBUMIN 1.6 g/dl (3.4-5.0); BLOOD UREA NITROGEN 57.5 mg/dL (7-18); CALCIUM 7.8 mg/dL (8.5-10.1)
[2022-12-31 09:06] LABS: CREATININE 2.4 mg/dL (0.55-1.3)
[2022-12-31 09:08] LABS: BILIRUBIN,TOTAL 0.4 mg/dL (0.2-1); TOT PROT 5.8 g/dl (6.4-8.2)
[2022-12-31] MEDS ORDERED: POTASSIUM CHLORIDE ORAL LIQUID 20 MEQ/15 ML PO ONE (09:51)
[2022-12-31] MEDS: levETIRAcetam 500 MG/5 ML ORAL SOLUTION (UNIT-DOSE CUPS) PEG SCH ×2 (11:57→21:59)
[2022-12-31] MEDS: VITAMIN B COMP W-C 1 EA TABLET (NEPHRO-VITE) PO SCH (11:57)
[2022-12-31] MEDS: AMIODARONE HCL 200 MG TABLET PEG SCH (11:58)
[2022-12-31] MEDS: PANTOPRAZOLE SODIUM 40 MG VIAL IVPUSH SCH (12:13)
[2022-12-31] MEDS: LABETALOL HCL 200 MG TABLET (FP) PO SCH ×2 (13:21→21:58)
[2022-12-31] MEDS: CEFTRIAXONE 1 GM in DEXTROSE 5%-WATER - 50 ML IVPB SCH (13:52)
[2022-12-31] MEDS: POVIDONE-IODINE 10% SOLN 118 ML BOTTLE TP SCH (14:00)
[2022-12-31] MEDS: PIPERACILLIN/TAZOB 2.25 GM 2.25 GM in DEXTROSE 5%-WATER - 50 ML IVPB SCH (17:59)
[2022-12-31] MEDS: AMINO ACIDS 4.25%/D5W 1,000 ML IV SCH (18:33)
[2022-12-31] MEDS: ATORVASTATIN CA 20 MG TABLET (FP) PEG SCH (21:59)
[2023-01-01] MEDS: PIPERACILLIN/TAZOB 2.25 GM 2.25 GM in DEXTROSE 5%-WATER - 50 ML IVPB SCH ×3 (01:27→18:26)
[2023-01-01] MEDS: INSULIN (LEVEMIR) 100 UNITS/ML UNITS SQ SCH (06:13)
[2023-01-01] MEDS: INSULIN SLIDING SCALE (NOVOLOG) 1 VIAL SQ SCH ×3 (06:14→17:34)
[2023-01-01] MEDS: MUPIROCIN 2% TOPICAL OINTMENT 22 GM TUBE TP SCH ×2 (06:14→14:57)
[2023-01-01] MEDS: AMINO ACIDS/PROTEIN HYDROLYS 30 ML LIQUID.PKT PO SCH ×2 (08:41→18:26)
[2023-01-01] MEDS: VITAMIN B COMP W-C 1 EA TABLET (NEPHRO-VITE) PO SCH (11:13)
[2023-01-01] MEDS: levETIRAcetam 500 MG/5 ML ORAL SOLUTION (UNIT-DOSE CUPS) PEG SCH (11:13)
[2023-01-01] MEDS: LABETALOL HCL 200 MG TABLET (FP) PO SCH (11:13)
[2023-01-01] MEDS: AMIODARONE HCL 200 MG TABLET PEG SCH (11:13)
[2023-01-01] MEDS: PANTOPRAZOLE SODIUM 40 MG VIAL IVPUSH SCH (11:14)
[2023-01-01] MEDS: POVIDONE-IODINE 10% SOLN 118 ML BOTTLE TP SCH (15:30)
[2023-01-01] MEDS: AMINO ACIDS 4.25%/D5W 1,000 ML IV SCH (17:34)
[2023-01-02] MEDS: ATORVASTATIN CA 20 MG TABLET (FP) PEG SCH ×2 (00:44→22:07)
[2023-01-02] MEDS: levETIRAcetam 500 MG/5 ML ORAL SOLUTION (UNIT-DOSE CUPS) PEG SCH ×3 (00:45→22:07)
[2023-01-02] MEDS: LABETALOL HCL 200 MG TABLET (FP) PO SCH ×3 (00:45→22:07)
[2023-01-02] MEDS: MUPIROCIN 2% TOPICAL OINTMENT 22 GM TUBE TP SCH ×3 (00:49→13:59)
[2023-01-02] MEDS: PIPERACILLIN/TAZOB 2.25 GM 2.25 GM in DEXTROSE 5%-WATER - 50 ML IVPB SCH ×3 (03:32→17:11)
[2023-01-02] MEDS: INSULIN (LEVEMIR) 100 UNITS/ML UNITS SQ SCH (06:50)
[2023-01-02] MEDS: INSULIN SLIDING SCALE (NOVOLOG) 1 VIAL SQ SCH ×3 (06:55→16:37)
[2023-01-02] MEDS: AMINO ACIDS/PROTEIN HYDROLYS 30 ML LIQUID.PKT PO SCH ×2 (08:42→16:37)
[2023-01-02] MEDS: AMINO ACIDS 4.25%/D5W 1,000 ML IV SCH ×2 (09:02→17:11)
[2023-01-02] MEDS: PANTOPRAZOLE SODIUM 40 MG VIAL IVPUSH SCH (09:03)
[2023-01-02] MEDS: POVIDONE-IODINE 10% SOLN 118 ML BOTTLE TP SCH (09:04)
[2023-01-02] MEDS: VITAMIN B COMP W-C 1 EA TABLET (NEPHRO-VITE) PO SCH (09:04)
[2023-01-02] MEDS: AMIODARONE HCL 200 MG TABLET PEG SCH (09:04)
[2023-01-02] MEDS ORDERED: SODIUM CHLORIDE 250 ML IV PRN (19:46)
[2023-01-03] MEDS: MUPIROCIN 2% TOPICAL OINTMENT 22 GM TUBE TP SCH ×5 (00:29→22:37)
[2023-01-03] MEDS: PIPERACILLIN/TAZOB 2.25 GM 2.25 GM in DEXTROSE 5%-WATER - 50 ML IVPB SCH ×3 (01:16→17:48)
[2023-01-03] MEDS: INSULIN (LEVEMIR) 100 UNITS/ML UNITS SQ SCH (06:30)
[2023-01-03] MEDS: INSULIN SLIDING SCALE (NOVOLOG) 1 VIAL SQ SCH ×3 (06:30→16:55)
[2023-01-03 11:29] LABS: HEMATOCRIT 24.3 % (35.4-49); HEMOGLOBIN 7.9 GM/dL (11.7-16.9); MCH 26.7 pg (25.7-33.7); MCHC 32.5 g/dl (32.0-35.9); MEAN CELL VOLUME 81.9 fl (80-96); MEAN PLT VOLUME 6.8 fl (7.5-11.1); PLATELET COUNT 300 10^3/uL (134-434); RBC 2.97 M/mm3 (4.00-5.60); RDW 17.7 % (11.9-15.9); WHITE BLOOD COUNT 11.4 K/mm3 (4.0-10.0)
[2023-01-03] MEDS: PANTOPRAZOLE SODIUM 40 MG VIAL IVPUSH SCH (11:49)
[2023-01-03 11:50] LABS: ANISOCYTOSIS 1+; MACROCYTOSIS 1+
[2023-01-03] MEDS: AMINO ACIDS/PROTEIN HYDROLYS 30 ML LIQUID.PKT PO SCH ×2 (11:50→17:49)
[2023-01-03] MEDS: LABETALOL HCL 200 MG TABLET (FP) PO SCH ×2 (11:50→22:37)
[2023-01-03] MEDS: VITAMIN B COMP W-C 1 EA TABLET (NEPHRO-VITE) PO SCH (11:50)
[2023-01-03] MEDS: levETIRAcetam 500 MG/5 ML ORAL SOLUTION (UNIT-DOSE CUPS) PEG SCH ×2 (11:50→22:37)
[2023-01-03] MEDS: AMIODARONE HCL 200 MG TABLET PEG SCH (11:50)
[2023-01-03] MEDS: POVIDONE-IODINE 10% SOLN 118 ML BOTTLE TP SCH (11:52)
[2023-01-03 12:09] LABS: POTASSIUM 3.5 mmol/L (3.5-5.1)
[2023-01-03 12:11] LABS: CALCIUM 8.6 mg/dL (8.5-10.1)
[2023-01-03 12:12] LABS: ALBUMIN 1.7 g/dl (3.4-5.0); MAGNESIUM 1.9 mg/dL (1.8-2.4)
[2023-01-03 12:14] LABS: CREATININE 0.8 mg/dL (0.55-1.3)
[2023-01-03 12:16] LABS: BILIRUBIN,TOTAL 0.4 mg/dL (0.2-1); TOT PROT 6.7 g/dl (6.4-8.2)
[2023-01-03 12:41] LABS: BLOOD UREA NITROGEN 20.2 mg/dL (7-18)
[2023-01-03] MEDS: hydrALAZINE HCL 25 MG TABLET (FP) PO SCH ×2 (14:36→22:37)
[2023-01-03] MEDS: NYSTATIN 500,000 UNITS/5 ML SUSPENSION PO SCH ×2 (18:13→23:20)
[2023-01-03] MEDS: ATORVASTATIN CA 20 MG TABLET (FP) PEG SCH (22:37)
[2023-01-04] MEDS: PIPERACILLIN/TAZOB 2.25 GM 2.25 GM in DEXTROSE 5%-WATER - 50 ML IVPB SCH ×5 (01:19→17:47)
[2023-01-04] MEDS: hydrALAZINE HCL 25 MG TABLET (FP) PO SCH ×3 (05:31→23:08)
[2023-01-04] MEDS: MUPIROCIN 2% TOPICAL OINTMENT 22 GM TUBE TP SCH ×3 (05:31→23:10)
[2023-01-04] MEDS: NYSTATIN 500,000 UNITS/5 ML SUSPENSION PO SCH ×4 (05:31→23:08)
[2023-01-04] MEDS: INSULIN (LEVEMIR) 100 UNITS/ML UNITS SQ SCH (06:10)
[2023-01-04] MEDS: INSULIN SLIDING SCALE (NOVOLOG) 1 VIAL SQ SCH ×3 (06:11→17:30)
[2023-01-04] MEDS: AMINO ACIDS/PROTEIN HYDROLYS 30 ML LIQUID.PKT PO SCH ×2 (08:37→17:47)
[2023-01-04] MEDS: AMIODARONE HCL 200 MG TABLET PEG SCH (10:57)
[2023-01-04] MEDS: LABETALOL HCL 200 MG TABLET (FP) PO SCH ×2 (10:57→23:08)
[2023-01-04] MEDS: VITAMIN B COMP W-C 1 EA TABLET (NEPHRO-VITE) PO SCH (10:57)
[2023-01-04] MEDS: PANTOPRAZOLE SODIUM 40 MG VIAL IVPUSH SCH (10:57)
[2023-01-04] MEDS: POVIDONE-IODINE 10% SOLN 118 ML BOTTLE TP SCH (10:58)
[2023-01-04] MEDS: levETIRAcetam 500 MG/5 ML ORAL SOLUTION (UNIT-DOSE CUPS) PEG SCH ×2 (10:58→23:08)
[2023-01-04] MEDS: ATORVASTATIN CA 20 MG TABLET (FP) PEG SCH (23:08)
[2023-01-05] MEDS: PIPERACILLIN/TAZOB 2.25 GM 2.25 GM in DEXTROSE 5%-WATER - 50 ML IVPB SCH ×3 (01:05→17:15)
[2023-01-05] MEDS: hydrALAZINE HCL 25 MG TABLET (FP) PO SCH ×3 (06:00→21:43)
[2023-01-05] MEDS: NYSTATIN 500,000 UNITS/5 ML SUSPENSION PO SCH ×3 (06:00→17:15)
[2023-01-05] MEDS: MUPIROCIN 2% TOPICAL OINTMENT 22 GM TUBE TP SCH ×3 (06:00→21:43)
[2023-01-05] MEDS: INSULIN (LEVEMIR) 100 UNITS/ML UNITS SQ SCH (07:00)
[2023-01-05] MEDS ORDERED: SODIUM CHLORIDE 250 ML IV PRN (07:02)
[2023-01-05] MEDS: INSULIN SLIDING SCALE (NOVOLOG) 1 VIAL SQ SCH ×3 (07:02→17:05)
[2023-01-05 08:10] LABS: EPI CELLS 33 /uL (0-25.1); HYALINE CASTS 14 /uL (0-3.1); URINE APPEARANCE TURBID; URINE BACTERIA 372 /uL (0-1359); URINE BILIRUBIN NEGATIVE (NEGATIVE); URINE COLOR YELLOW; URINE GLUCOSE (UA) NEGATIVE (NEGATIVE); URINE KETONE NEGATIVE (NEGATIVE); URINE LEUK ESTERASE 3+ (NEGATIVE); URINE NITRITE NEGATIVE (NEGATIVE); URINE PROTEIN 3+ (NEGATIVE); URINE RBC 264 /uL (0-23.9); URINE UROBILINOGEN 0.2 mg/dL (0.2-1.0); URINE WBC 5008 /uL (0-25.8)
[2023-01-05 08:50] LABS: YEAST FEW (NEGATIVE)
[2023-01-05] MEDS ORDERED: EPOETIN ALFA-EPBX 10,000 UNIT/ML VIAL SQ ONE (09:00)
[2023-01-05 09:24] LABS: HEMATOCRIT 21.1 % (35.4-49); HEMOGLOBIN 7.1 GM/dL (11.7-16.9); MCH 27.6 pg (25.7-33.7); MCHC 33.4 g/dl (32.0-35.9); MEAN CELL VOLUME 82.7 fl (80-96); MEAN PLT VOLUME 7.2 fl (7.5-11.1); PLATELET COUNT 280 10^3/uL (134-434); RBC 2.56 M/mm3 (4.00-5.60); RDW 17.5 % (11.9-15.9)
[2023-01-05 10:56] LABS: POTASSIUM 4.2 mmol/L (3.5-5.1)
[2023-01-05 10:58] LABS: CALCIUM 7.5 mg/dL (8.5-10.1)
[2023-01-05 11:02] LABS: CREATININE 2.1 mg/dL (0.55-1.3)
[2023-01-05 11:03] LABS: BLOOD UREA NITROGEN 55.3 mg/dL (7-18)
[2023-01-05] MEDS: LABETALOL HCL 200 MG TABLET (FP) PO SCH ×2 (11:33→21:41)
[2023-01-05] MEDS: PANTOPRAZOLE SODIUM 40 MG VIAL IVPUSH SCH (11:33)
[2023-01-05] MEDS: levETIRAcetam 500 MG/5 ML ORAL SOLUTION (UNIT-DOSE CUPS) PEG SCH ×2 (11:33→21:43)
[2023-01-05] MEDS: AMINO ACIDS/PROTEIN HYDROLYS 30 ML LIQUID.PKT PO SCH ×2 (11:34→17:15)
[2023-01-05] MEDS: AMIODARONE HCL 200 MG TABLET PEG SCH (11:34)
[2023-01-05] MEDS: VITAMIN B COMP W-C 1 EA TABLET (NEPHRO-VITE) PO SCH (11:34)
[2023-01-05] MEDS: POVIDONE-IODINE 10% SOLN 118 ML BOTTLE TP SCH (14:58)
[2023-01-05 18:39] VITALS: TEMP 96.8
[2023-01-05 19:39] VITALS: PULSE 61
[2023-01-05 21:41] VITALS: BP 123/35; RESP 20
[2023-01-05] MEDS: ATORVASTATIN CA 20 MG TABLET (FP) PEG SCH (21:43)
== END 2023-01-05 23:12 | DRG 853 ==
LOC: JER 12:24 → JERBED 13:07 → JICU 16:02 → J5S 12-22 17:20
PROVIDERS: ADMIT Internal Medicine Pulmonary Disease; ATTEND Family Medicine
PROC: 5A1955Z Respiratory Ventilation, Greater than 96 Consecutive Hours (ICD-10-PCS; 2022-12-21)
PROC: 5A1D70Z Performance of Urinary Filtration, Intermittent, Less than 6 Hours Per Day (ICD-10-PCS; 2022-12-22)
PROC: 5A1D70Z Performance of Urinary Filtration, Intermittent, Less than 6 Hours Per Day (ICD-10-PCS; 2022-12-22)
PROC: 5A1D70Z Performance of Urinary Filtration, Intermittent, Less than 6 Hours Per Day (ICD-10-PCS; 2022-12-24)
PROC: 5A1D70Z Performance of Urinary Filtration, Intermittent, Less than 6 Hours Per Day (ICD-10-PCS; 2022-12-27)
PROC: 0KBN0ZZ Excision of Right Hip Muscle, Open Approach (ICD-10-PCS; 2022-12-28)
PROC: 0QBS0ZX Excision of Coccyx, Open Approach, Diagnostic (ICD-10-PCS; 2022-12-28)
PROC: 0KBN0ZZ Excision of Right Hip Muscle, Open Approach (ICD-10-PCS; principal; 2022-12-28 13:00)
PROC: 5A1D70Z Performance of Urinary Filtration, Intermittent, Less than 6 Hours Per Day (ICD-10-PCS; 2022-12-29)
PROC: 5A1D70Z Performance of Urinary Filtration, Intermittent, Less than 6 Hours Per Day (ICD-10-PCS; 2022-12-31)
PROC: 5A1D70Z Performance of Urinary Filtration, Intermittent, Less than 6 Hours Per Day (ICD-10-PCS; 2023-01-03)
DX: A41.89 Other specified sepsis (principal); J69.0 Pneumonitis due to inhalation of food and vomit; N18.6 End stage renal disease; R65.21 Severe sepsis with septic shock; E87.20 Acidosis, unspecified; G93.1 Anoxic brain damage, not elsewhere classified; I13.2 Hypertensive heart and chronic kidney disease with heart failure and with stage 5 chronic kidney disease, or end stage renal disease; N17.9 Acute kidney failure, unspecified; J96.11 Chronic respiratory failure with hypoxia; I50.9 Heart failure, unspecified; E78.5 Hyperlipidemia, unspecified; E11.22 Type 2 diabetes mellitus with diabetic chronic kidney disease; E03.9 Hypothyroidism, unspecified; E11.43 Type 2 diabetes mellitus with diabetic autonomic (poly)neuropathy; K31.84 Gastroparesis; R19.00 Intra-abdominal and pelvic swelling, mass and lump, unspecified site; R33.9 Retention of urine, unspecified; I48.91 Unspecified atrial fibrillation; R80.9 Proteinuria, unspecified; E87.5 Hyperkalemia; L89.210 Pressure ulcer of right hip, unstageable; L89.150 Pressure ulcer of sacral region, unstageable; R11.10 Vomiting, unspecified; Z86.718 Personal history of other venous thrombosis and embolism; Z99.2 Dependence on renal dialysis; Z93.1 Gastrostomy status; Z93.0 Tracheostomy status
CPT/HCPCS: 0241U-QW; 36415; 36430; 36600; 71045-TC-FY; 74018-TC-FY; 74176-TC; 76705-TC; 80048; 80053; 81003; 82553; 82728; 82803; 82962; 82977; 83540; 83550; 83605; 83735; 84100; 84439; 84443; 84481; 84484; 85025; 85027; 85610; 85730; 86140; 86803; 86850; 86900; 86901; 86922; 87040; 87070; 87075; 87077; 87086; 87106; 87186; 87205; 87340; 87899; 93005; 93010; 94002; 94760; 99285-25; P9047; P9058; Q5106

== ENCOUNTER 2023-02-12 06:53 | Inpatient (IN) | payer OTHER ==
[2023-02-12] MEDS: ALBUTEROL SO4 2.5/IPRATROPIUM 0.5 INH SOL 3 ML VIAL.NEB. NEB SCH ×3 (08:01→08:26)
[2023-02-12 09:04] LABS: VENOUS BASE EXCESS 5.6 mmol/L (-2-2); VENOUS O2 SATURATION 56.6 % (70-80); VENOUS PCO2 56.7 mmHg (38-52); VENOUS PH 7.371 (7.310-7.410)
[2023-02-12 09:08] LABS: HEMATOCRIT 26.5 % (35.4-49); HEMOGLOBIN 8.3 GM/dL (11.7-16.9); MCH 27.4 pg (25.7-33.7); MCHC 31.3 g/dl (32.0-35.9); MEAN CELL VOLUME 87.6 fl (80-96); MEAN PLT VOLUME 6.5 fl (7.5-11.1); PLATELET COUNT 446 10^3/uL (134-434); RBC 3.03 M/mm3 (4.00-5.60); RDW 18.5 % (11.9-15.9); WHITE BLOOD COUNT 17.9 K/mm3 (4.0-10.0)
[2023-02-12 09:14] LABS: INR 1.28 (0.83-1.09); PROTHROMBIN TIME (PATIENT) 14.8 SEC (9.7-13.0)
[2023-02-12 09:16] LABS: ACTIVATED PTT 31.6 SECONDS (25.2-36.5)
[2023-02-12 09:24] LABS: POTASSIUM 3.5 mmol/L (3.5-5.1)
[2023-02-12 09:27] LABS: ALBUMIN 1.7 g/dl (3.4-5.0); CALCIUM 8.7 mg/dL (8.5-10.1); MAGNESIUM 2.4 mg/dL (1.8-2.4)
[2023-02-12 09:30] LABS: CREATININE 1.3 mg/dL (0.55-1.3); PHOSPHOROUS 2.4 mg/dL (2.5-4.9)
[2023-02-12 09:32] LABS: BILIRUBIN,TOTAL 0.3 mg/dL (0.2-1); TOT PROT 6.8 g/dl (6.4-8.2)
[2023-02-12 09:44] LABS: ANISOCYTOSIS 3+; MACROCYTOSIS 3+
[2023-02-12 10:03] LABS: EPI CELLS >36 /uL (0-25.1); HYALINE CASTS 149 /uL (0-3.1); PH,URINE 5.5 (5.0-8.0); URINE APPEARANCE TURBID; URINE BACTERIA 368 /uL (0-1359); URINE BILIRUBIN 1+ (NEGATIVE); URINE COLOR DK YELLOW; URINE GLUCOSE (UA) NEGATIVE (NEGATIVE); URINE KETONE TRACE (NEGATIVE); URINE LEUK ESTERASE 3+ (NEGATIVE); URINE NITRITE NEGATIVE (NEGATIVE); URINE PROTEIN 3+ (NEGATIVE); URINE WBC 4848 /uL (0-25.8)
[2023-02-12] MEDS ORDERED: SODIUM CHLORIDE 0.9% 500 ML INFUS.BAG IV ONE ×2 (10:12→10:18)
[2023-02-12 10:13] LABS: URINE RBC 141.4 /uL (0-23.9)
[2023-02-12] MEDS ORDERED: PIPERACILLIN/TAZOBACTAM 4.5 GM VIAL IVPB ONE (10:26)
[2023-02-12] MEDS ORDERED: VANCOMYCIN 1,000 MG in DEXTROSE 5%-WATER - 250 ML IVPB ONE (10:26)
[2023-02-12] MEDS ORDERED: VANCOMYCIN 1 GRAM (PRE-DOCKED) 1,000 MG/250 ML BAG IVPB ONE (10:32)
[2023-02-12] MEDS ORDERED: PIPERACILLIN/TAZOB 4.5 GM 4.5 GM/100 ML BAG IVPB ONE (10:33)
[2023-02-12] MEDS ORDERED: NAPH,MB-DB/K PH,MBDB POWDER PACKET PEG ONE (20:46)
[2023-02-12] MEDS ORDERED: SODIUM PHOSPHATE/NA BIPHOS 133 ML ENEMA RC PRN (21:09)
[2023-02-12] MEDS ORDERED: ACETAMINOPHEN 650 MG/20.3 ML ORAL SOLUTION (CUPS) GT PRN (21:09)
[2023-02-12] MEDS ORDERED: BISACODYL 10 MG SUPP.RECT RC PRN (21:09)
[2023-02-12] MEDS ORDERED: MAGNESIUM HYDROX 2400MG/30ML ORAL SUSPENSION 30 ML CUP GT PRN (21:09)
[2023-02-12] MEDS ORDERED: METOPROLOL TARTRATE 5 MG/5 ML VIAL IVPUSH PRN (21:54)
[2023-02-12] MEDS ORDERED: INSULIN (LEVEMIR) 100 UNITS/ML UNITS SQ SCH (22:00)
[2023-02-12] MEDS ORDERED: HEPARIN NA (PORCINE) 5,000 UNITS/ML 1ML VIAL SQ SCH (22:00)
[2023-02-12] MEDS: PIPERACILLIN/TAZOB 2.25 GM 2.25 GM in DEXTROSE 5%-WATER - 50 ML IVPB SCH (23:23)
[2023-02-12] MEDS: FAMOTIDINE 20 MG/2.5 ML ORAL LIQUID GT SCH (23:23)
[2023-02-12] MEDS: FUROSEMIDE 40 MG/4 ML INJECTABLE VIAL IVPUSH SCH (23:23)
[2023-02-13] MEDS ORDERED: dilTIAZem HCL 30 MG TABLET PEG ONE (01:19)
[2023-02-13] MEDS: dilTIAZem HCL 30 MG TABLET PEG SCH ×4 (05:18→23:11)
[2023-02-13] MEDS: PIPERACILLIN/TAZOB 2.25 GM 2.25 GM in DEXTROSE 5%-WATER - 50 ML IVPB SCH ×4 (05:18→21:31)
[2023-02-13] MEDS ORDERED: INSULIN (LEVEMIR) 100 UNITS/ML UNITS SQ SCH (07:00)
[2023-02-13 07:44] LABS: HEMOGLOBIN 8.7 GM/dL (11.7-16.9); MCH 28.3 pg (25.7-33.7); MCHC 32.3 g/dl (32.0-35.9); MEAN CELL VOLUME 87.7 fl (80-96); MEAN PLT VOLUME 7.1 fl (7.5-11.1); PLATELET COUNT 266 10^3/uL (134-434); RBC 3.08 M/mm3 (4.00-5.60); RDW 18.6 % (11.9-15.9); WHITE BLOOD COUNT 19.9 K/mm3 (4.0-10.0)
[2023-02-13] MEDS: INSULIN SLIDING SCALE (NOVOLOG) 1 VIAL SQ SCH ×3 (07:47→18:13)
[2023-02-13 07:50] LABS: POTASSIUM 3.8 mmol/L (3.5-5.1)
[2023-02-13 07:53] LABS: CALCIUM 8.4 mg/dL (8.5-10.1)
[2023-02-13 07:54] LABS: ALBUMIN 1.7 g/dl (3.4-5.0); BLOOD UREA NITROGEN 60.6 mg/dL (7-18)
[2023-02-13 07:59] LABS: BILIRUBIN,TOTAL 0.5 mg/dL (0.2-1); CREATININE 1.5 mg/dL (0.55-1.3)
[2023-02-13 08:00] LABS: TOT PROT 6.7 g/dl (6.4-8.2)
[2023-02-13 08:51] LABS: EPI CELLS 11 /uL (0-25.1); HYALINE CASTS 1 /uL (0-3.1); PH,URINE 6.5 (5.0-8.0); URINE APPEARANCE CLOUDY; URINE BACTERIA 38 /uL (0-1359); URINE BILIRUBIN NEGATIVE (NEGATIVE); URINE COLOR YELLOW; URINE GLUCOSE (UA) NEGATIVE (NEGATIVE); URINE KETONE NEGATIVE (NEGATIVE); URINE LEUK ESTERASE 3+ (NEGATIVE); URINE NITRITE NEGATIVE (NEGATIVE); URINE PROTEIN 2+ (NEGATIVE); URINE RBC 249 /uL (0-23.9); URINE UROBILINOGEN 0.2 mg/dL (0.2-1.0); URINE WBC 1971 /uL (0-25.8)
[2023-02-13] MEDS: ENOXAPARIN NA (PORCINE) 40 MG/0.4 ML DISP.SYRIN SQ SCH (09:21)
[2023-02-13] MEDS: AMINO ACIDS/PROTEIN HYDROLYS 30 ML LIQUID.PKT GT SCH ×2 (09:21→18:01)
[2023-02-13] MEDS: BACITRACIN ZINC 15 GM TUBE TOPICAL OINTMENT TP SCH (09:21)
[2023-02-13] MEDS: FAMOTIDINE 20 MG/2.5 ML ORAL LIQUID GT SCH ×2 (09:21→21:31)
[2023-02-13] MEDS: FUROSEMIDE 40 MG/4 ML INJECTABLE VIAL IVPUSH SCH ×2 (11:31→21:48)
[2023-02-13] MEDS: COLLAGENASE CLOSTRIDIUM HIST. 30 GRAMS TUBE TP SCH (14:14)
[2023-02-13] MEDS ORDERED: SODIUM CHLORIDE 250 ML IV PRN (15:41)
[2023-02-13] MEDS: INSULIN (LEVEMIR) 100 UNITS/ML UNITS SQ SCH (21:31)
[2023-02-13] MEDS ORDERED: dilTIAZem HCL 30 MG TABLET PEG SCH (22:38)
[2023-02-14] MEDS: dilTIAZem HCL 30 MG TABLET PEG SCH ×4 (05:35→23:28)
[2023-02-14] MEDS: PIPERACILLIN/TAZOB 2.25 GM 2.25 GM in DEXTROSE 5%-WATER - 50 ML IVPB SCH ×3 (05:35→21:27)
[2023-02-14] MEDS: INSULIN SLIDING SCALE (NOVOLOG) 1 VIAL SQ SCH ×3 (06:00→17:07)
[2023-02-14 09:18] LABS: HEMATOCRIT 24.4 % (35.4-49); HEMOGLOBIN 7.9 GM/dL (11.7-16.9); MCH 27.8 pg (25.7-33.7); MCHC 32.3 g/dl (32.0-35.9); MEAN CELL VOLUME 85.8 fl (80-96); MEAN PLT VOLUME 6.4 fl (7.5-11.1); PLATELET COUNT 516 10^3/uL (134-434); RBC 2.84 M/mm3 (4.00-5.60); RDW 18.6 % (11.9-15.9); WHITE BLOOD COUNT 16.5 K/mm3 (4.0-10.0)
[2023-02-14] MEDS: ENOXAPARIN NA (PORCINE) 40 MG/0.4 ML DISP.SYRIN SQ SCH (09:21)
[2023-02-14] MEDS: COLLAGENASE CLOSTRIDIUM HIST. 30 GRAMS TUBE TP SCH (09:21)
[2023-02-14] MEDS: BACITRACIN ZINC 15 GM TUBE TOPICAL OINTMENT TP SCH (09:21)
[2023-02-14] MEDS: FAMOTIDINE 20 MG/2.5 ML ORAL LIQUID GT SCH ×2 (09:21→21:28)
[2023-02-14 09:44] LABS: POTASSIUM 3.5 mmol/L (3.5-5.1)
[2023-02-14 09:47] LABS: ALBUMIN 1.6 g/dl (3.4-5.0); BLOOD UREA NITROGEN 73.6 mg/dL (7-18); CALCIUM 8.2 mg/dL (8.5-10.1)
[2023-02-14 09:50] LABS: BILIRUBIN,TOTAL 0.4 mg/dL (0.2-1); CREATININE 1.8 mg/dL (0.55-1.3); TOT PROT 6.3 g/dl (6.4-8.2)
[2023-02-14] MEDS: FUROSEMIDE 40 MG/4 ML INJECTABLE VIAL IVPUSH SCH ×2 (10:20→21:44)
[2023-02-14] MEDS: INSULIN (LEVEMIR) 100 UNITS/ML UNITS SQ SCH (21:30)
[2023-02-15] MEDS: PIPERACILLIN/TAZOB 2.25 GM 2.25 GM in DEXTROSE 5%-WATER - 50 ML IVPB SCH ×3 (06:04→22:03)
[2023-02-15] MEDS: dilTIAZem HCL 30 MG TABLET PEG SCH ×3 (06:04→17:24)
[2023-02-15] MEDS: INSULIN SLIDING SCALE (NOVOLOG) 1 VIAL SQ SCH ×3 (06:05→17:24)
[2023-02-15] MEDS: ENOXAPARIN NA (PORCINE) 40 MG/0.4 ML DISP.SYRIN SQ SCH (09:45)
[2023-02-15] MEDS: FUROSEMIDE 40 MG/4 ML INJECTABLE VIAL IVPUSH SCH ×2 (09:45→22:03)
[2023-02-15] MEDS: BACITRACIN ZINC 15 GM TUBE TOPICAL OINTMENT TP SCH (09:46)
[2023-02-15] MEDS: COLLAGENASE CLOSTRIDIUM HIST. 30 GRAMS TUBE TP SCH (09:46)
[2023-02-15] MEDS: FAMOTIDINE 20 MG/2.5 ML ORAL LIQUID GT SCH ×2 (09:46→22:29)
[2023-02-15] MEDS ORDERED: INSULIN (NOVOLOG) ASPART 100 UNITS/ML 10ML VIAL ONE ×2 (12:14→17:21)
[2023-02-15 16:21] VITALS: BMI 25.0
[2023-02-15] MEDS ORDERED: SODIUM CHLORIDE 250 ML IV PRN (17:22)
[2023-02-15] MEDS: INSULIN (LEVEMIR) 100 UNITS/ML UNITS SQ SCH (22:03)
[2023-02-16] MEDS: dilTIAZem HCL 30 MG TABLET PEG SCH ×5 (00:17→23:27)
[2023-02-16] MEDS: PIPERACILLIN/TAZOB 2.25 GM 2.25 GM in DEXTROSE 5%-WATER - 50 ML IVPB SCH ×3 (05:20→21:02)
[2023-02-16] MEDS: INSULIN SLIDING SCALE (NOVOLOG) 1 VIAL SQ SCH ×3 (06:03→16:49)
[2023-02-16] MEDS ORDERED: EPOETIN ALFA-EPBX 10,000 UNIT, EPOETIN ALFA-EPBX 3,000 UNIT, EPOETIN ALFA-EPBX 2,000 UNIT IVPUSH ONE (09:45)
[2023-02-16 10:45] LABS: HEMOGLOBIN 7.5 GM/dL (11.7-16.9); MCH 26.9 pg (25.7-33.7); MCHC 31.3 g/dl (32.0-35.9); MEAN PLT VOLUME 6.3 fl (7.5-11.1); PLATELET COUNT 525 10^3/uL (134-434); RBC 2.79 M/mm3 (4.00-5.60); RDW 18.5 % (11.9-15.9); WHITE BLOOD COUNT 15.2 K/mm3 (4.0-10.0)
[2023-02-16] MEDS: FUROSEMIDE 40 MG/4 ML INJECTABLE VIAL IVPUSH SCH ×2 (11:20→23:27)
[2023-02-16 11:26] LABS: POTASSIUM 3.9 mmol/L (3.5-5.1)
[2023-02-16 11:27] LABS: ALBUMIN 1.5 g/dl (3.4-5.0); CALCIUM 8.2 mg/dL (8.5-10.1)
[2023-02-16 11:28] LABS: BLOOD UREA NITROGEN 60.1 mg/dL (7-18)
[2023-02-16 11:32] LABS: BILIRUBIN,TOTAL 0.4 mg/dL (0.2-1); CREATININE 1.7 mg/dL (0.55-1.3); TOT PROT 6.2 g/dl (6.4-8.2)
[2023-02-16] MEDS ORDERED: SODIUM CHLORIDE 500 ML IV STA (11:38)
[2023-02-16] MEDS: COLLAGENASE CLOSTRIDIUM HIST. 30 GRAMS TUBE TP SCH (11:39)
[2023-02-16] MEDS: BACITRACIN ZINC 15 GM TUBE TOPICAL OINTMENT TP SCH (11:39)
[2023-02-16] MEDS: ENOXAPARIN NA (PORCINE) 40 MG/0.4 ML DISP.SYRIN SQ SCH (11:39)
[2023-02-16] MEDS: FAMOTIDINE 20 MG/2.5 ML ORAL LIQUID GT SCH ×2 (11:39→21:03)
[2023-02-16] MEDS ORDERED: EPOETIN ALFA-EPBX 10,000 UNIT/ML VIAL SQ ONE (17:22)
[2023-02-16] MEDS: INSULIN (LEVEMIR) 100 UNITS/ML UNITS SQ SCH (21:02)
[2023-02-17] MEDS ORDERED: INSULIN (NOVOLOG) ASPART 100 UNITS/ML 10ML VIAL ONE (05:54)
[2023-02-17] MEDS: PIPERACILLIN/TAZOB 2.25 GM 2.25 GM in DEXTROSE 5%-WATER - 50 ML IVPB SCH ×3 (06:01→22:10)
[2023-02-17] MEDS: dilTIAZem HCL 30 MG TABLET PEG SCH ×4 (06:01→23:15)
[2023-02-17] MEDS: INSULIN SLIDING SCALE (NOVOLOG) 1 VIAL SQ SCH ×3 (06:01→17:24)
[2023-02-17] MEDS: FAMOTIDINE 20 MG/2.5 ML ORAL LIQUID GT SCH ×2 (10:49→22:10)
[2023-02-17] MEDS: ENOXAPARIN NA (PORCINE) 40 MG/0.4 ML DISP.SYRIN SQ SCH (10:49)
[2023-02-17] MEDS: FUROSEMIDE 40 MG/4 ML INJECTABLE VIAL IVPUSH SCH ×2 (10:50→22:10)
[2023-02-17] MEDS: BACITRACIN ZINC 15 GM TUBE TOPICAL OINTMENT TP SCH (10:50)
[2023-02-17] MEDS: COLLAGENASE CLOSTRIDIUM HIST. 30 GRAMS TUBE TP SCH (10:50)
[2023-02-17] MEDS ORDERED: SODIUM CHLORIDE 250 ML IV PRN (16:48)
[2023-02-17] MEDS: INSULIN (LEVEMIR) 100 UNITS/ML UNITS SQ SCH (22:09)
[2023-02-17] MEDS ORDERED: INSULIN (LEVEMIR) 100 UNITS/ML UNITS SQ ONE (22:13)
[2023-02-17] MEDS ORDERED: INSULIN REGULAR HUMAN 100 UNITS/ML *VIAL ONE (22:14)
[2023-02-18] MEDS: dilTIAZem HCL 30 MG TABLET PEG SCH ×4 (05:46→23:01)
[2023-02-18] MEDS: PIPERACILLIN/TAZOB 2.25 GM 2.25 GM in DEXTROSE 5%-WATER - 50 ML IVPB SCH ×3 (05:46→21:16)
[2023-02-18] MEDS: INSULIN SLIDING SCALE (NOVOLOG) 1 VIAL SQ SCH ×3 (06:34→17:26)
[2023-02-18] MEDS ORDERED: INSULIN (NOVOLOG) ASPART 100 UNITS/ML 10ML VIAL ONE ×2 (06:36→17:23)
[2023-02-18] MEDS ORDERED: EPOETIN ALFA-EPBX 10,000 UNIT/ML VIAL IVPUSH ONE (08:15)
[2023-02-18] MEDS: ALBUMIN HUMAN 25% 12.5 GM/50 ML VIAL IV SCH ×4 (08:30→10:15)
[2023-02-18 08:42] LABS: HEMATOCRIT 23.9 % (35.4-49); HEMOGLOBIN 7.4 GM/dL (11.7-16.9); MCH 26.9 pg (25.7-33.7); MCHC 31.2 g/dl (32.0-35.9); MEAN CELL VOLUME 86.3 fl (80-96); MEAN PLT VOLUME 6.1 fl (7.5-11.1); PLATELET COUNT 511 10^3/uL (134-434); RBC 2.77 M/mm3 (4.00-5.60); RDW 17.7 % (11.9-15.9); WHITE BLOOD COUNT 18.4 K/mm3 (4.0-10.0)
[2023-02-18 10:21] LABS: ALBUMIN 1.6 g/dl (3.4-5.0); BILIRUBIN,TOTAL 0.3 mg/dL (0.2-1); BLOOD UREA NITROGEN 48.9 mg/dL (7-18); CALCIUM 8.2 mg/dL (8.5-10.1); CREATININE 1.7 mg/dL (0.55-1.3); POTASSIUM 3.5 mmol/L (3.5-5.1); TOT PROT 6.1 g/dl (6.4-8.2)
[2023-02-18] MEDS: FUROSEMIDE 40 MG/4 ML INJECTABLE VIAL IVPUSH SCH ×2 (11:15→22:40)
[2023-02-18] MEDS: COLLAGENASE CLOSTRIDIUM HIST. 30 GRAMS TUBE TP SCH (11:15)
[2023-02-18] MEDS: BACITRACIN ZINC 15 GM TUBE TOPICAL OINTMENT TP SCH (11:15)
[2023-02-18] MEDS: FAMOTIDINE 20 MG/2.5 ML ORAL LIQUID GT SCH ×2 (11:15→21:16)
[2023-02-18] MEDS: ENOXAPARIN NA (PORCINE) 40 MG/0.4 ML DISP.SYRIN SQ SCH (11:15)
[2023-02-18] MEDS: INSULIN (LEVEMIR) 100 UNITS/ML UNITS SQ SCH (21:19)
[2023-02-19] MEDS: dilTIAZem HCL 30 MG TABLET PEG SCH ×4 (05:13→23:37)
[2023-02-19] MEDS: PIPERACILLIN/TAZOB 2.25 GM 2.25 GM in DEXTROSE 5%-WATER - 50 ML IVPB SCH ×3 (05:13→22:09)
[2023-02-19] MEDS: INSULIN SLIDING SCALE (NOVOLOG) 1 VIAL SQ SCH ×3 (06:02→17:16)
[2023-02-19] MEDS ORDERED: AMINO ACIDS/PROTEIN HYDROLYS 30 ML LIQUID.PKT GT SCH (08:00)
[2023-02-19] MEDS: ENOXAPARIN NA (PORCINE) 40 MG/0.4 ML DISP.SYRIN SQ SCH (09:25)
[2023-02-19] MEDS: BACITRACIN ZINC 15 GM TUBE TOPICAL OINTMENT TP SCH (09:25)
[2023-02-19] MEDS: COLLAGENASE CLOSTRIDIUM HIST. 30 GRAMS TUBE TP SCH (09:25)
[2023-02-19] MEDS: FAMOTIDINE 20 MG/2.5 ML ORAL LIQUID GT SCH ×2 (09:25→22:09)
[2023-02-19] MEDS: FUROSEMIDE 40 MG/4 ML INJECTABLE VIAL IVPUSH SCH ×2 (09:44→22:09)
[2023-02-19] MEDS: INSULIN (LEVEMIR) 100 UNITS/ML UNITS SQ SCH (22:41)
[2023-02-20] MEDS: PIPERACILLIN/TAZOB 2.25 GM 2.25 GM in DEXTROSE 5%-WATER - 50 ML IVPB SCH ×3 (06:28→22:19)
[2023-02-20] MEDS: dilTIAZem HCL 30 MG TABLET PEG SCH ×3 (06:28→17:42)
[2023-02-20] MEDS: INSULIN SLIDING SCALE (NOVOLOG) 1 VIAL SQ SCH ×3 (07:00→17:30)
[2023-02-20] MEDS: COLLAGENASE CLOSTRIDIUM HIST. 30 GRAMS TUBE TP SCH (10:12)
[2023-02-20] MEDS: FUROSEMIDE 40 MG/4 ML INJECTABLE VIAL IVPUSH SCH ×2 (10:12→22:29)
[2023-02-20] MEDS: BACITRACIN ZINC 15 GM TUBE TOPICAL OINTMENT TP SCH (10:12)
[2023-02-20] MEDS: FAMOTIDINE 20 MG/2.5 ML ORAL LIQUID GT SCH ×2 (10:12→22:19)
[2023-02-20] MEDS: INSULIN (LEVEMIR) 100 UNITS/ML UNITS SQ SCH (22:27)
[2023-02-21] MEDS: dilTIAZem HCL 30 MG TABLET PEG SCH ×5 (01:00→23:18)
[2023-02-21] MEDS: PIPERACILLIN/TAZOB 2.25 GM 2.25 GM in DEXTROSE 5%-WATER - 50 ML IVPB SCH ×3 (06:42→21:25)
[2023-02-21] MEDS: INSULIN SLIDING SCALE (NOVOLOG) 1 VIAL SQ SCH ×3 (06:43→17:24)
[2023-02-21 07:25] LABS: HEMATOCRIT 25.7 % (35.4-49); HEMOGLOBIN 8.2 GM/dL (11.7-16.9); MCH 27.9 pg (25.7-33.7); MEAN CELL VOLUME 87.4 fl (80-96); MEAN PLT VOLUME 6.9 fl (7.5-11.1); PLATELET COUNT 376 10^3/uL (134-434); RBC 2.94 M/mm3 (4.00-5.60); RDW 18.1 % (11.9-15.9); WHITE BLOOD COUNT 12.9 K/mm3 (4.0-10.0)
[2023-02-21 07:41] LABS: POTASSIUM 3.4 mmol/L (3.5-5.1)
[2023-02-21 07:48] LABS: CALCIUM 8.3 mg/dL (8.5-10.1)
[2023-02-21 07:49] LABS: ALBUMIN 1.7 g/dl (3.4-5.0); BLOOD UREA NITROGEN 54.2 mg/dL (7-18)
[2023-02-21 07:52] LABS: CREATININE 1.8 mg/dL (0.55-1.3); PHOSPHOROUS 3.1 mg/dL (2.5-4.9)
[2023-02-21 07:53] LABS: TOT PROT 6.4 g/dl (6.4-8.2)
[2023-02-21 07:54] LABS: BILIRUBIN,TOTAL 0.4 mg/dL (0.2-1)
[2023-02-21 08:44] LABS: ANISOCYTOSIS 0; HELMET CELLS 0; HOWELL-JOLLY BODIES 0; MACROCYTOSIS 0; OVALOCYTE 0; ROULEAU 0; SICKELED CELLS 0; TARGET CELLS 0; TEAR DROP CELLS 0; TOXIC GRANULATION 0
[2023-02-21] MEDS: FUROSEMIDE 40 MG/4 ML INJECTABLE VIAL IVPUSH SCH ×2 (10:04→21:59)
[2023-02-21] MEDS: FAMOTIDINE 20 MG/2.5 ML ORAL LIQUID GT SCH ×2 (10:05→21:34)
[2023-02-21] MEDS: BACITRACIN ZINC 15 GM TUBE TOPICAL OINTMENT TP SCH (10:05)
[2023-02-21] MEDS: COLLAGENASE CLOSTRIDIUM HIST. 30 GRAMS TUBE TP SCH (10:05)
[2023-02-21] MEDS ORDERED: INSULIN (NOVOLOG) ASPART 100 UNITS/ML 10ML VIAL ONE (10:08)
[2023-02-21] MEDS: ENOXAPARIN NA (PORCINE) 30 MG/0.3 ML DISP.SYRIN SQ SCH (10:38)
[2023-02-21] MEDS ORDERED: SODIUM CHLORIDE 250 ML IV PRN ×2 (13:00)
[2023-02-21] MEDS ORDERED: EPOETIN ALFA-EPBX 4,000 UNIT/ML VIAL SQ ONE (14:00)
[2023-02-21] MEDS: INSULIN (LEVEMIR) 100 UNITS/ML UNITS SQ SCH (21:24)
[2023-02-22] MEDS: dilTIAZem HCL 30 MG TABLET PEG SCH ×4 (06:01→23:02)
[2023-02-22] MEDS: PIPERACILLIN/TAZOB 2.25 GM 2.25 GM in DEXTROSE 5%-WATER - 50 ML IVPB SCH (06:02)
[2023-02-22] MEDS ORDERED: INSULIN (NOVOLOG) ASPART 100 UNITS/ML 10ML VIAL ONE (06:13)
[2023-02-22] MEDS: INSULIN SLIDING SCALE (NOVOLOG) 1 VIAL SQ SCH ×3 (06:14→16:33)
[2023-02-22] MEDS: FAMOTIDINE 20 MG/2.5 ML ORAL LIQUID GT SCH ×2 (09:31→22:07)
[2023-02-22] MEDS: COLLAGENASE CLOSTRIDIUM HIST. 30 GRAMS TUBE TP SCH (09:32)
[2023-02-22] MEDS: ENOXAPARIN NA (PORCINE) 30 MG/0.3 ML DISP.SYRIN SQ SCH (09:32)
[2023-02-22] MEDS: BACITRACIN ZINC 15 GM TUBE TOPICAL OINTMENT TP SCH (09:32)
[2023-02-22] MEDS: FUROSEMIDE 40 MG/4 ML INJECTABLE VIAL IVPUSH SCH ×2 (09:50→22:07)
[2023-02-22] MEDS ORDERED: SODIUM CHLORIDE 250 ML IV PRN (15:54)
[2023-02-22] MEDS: INSULIN (LEVEMIR) 100 UNITS/ML UNITS SQ SCH (22:07)
[2023-02-23] MEDS ORDERED: INSULIN (NOVOLOG) ASPART 100 UNITS/ML 10ML VIAL ONE ×3 (03:12→17:29)
[2023-02-23] MEDS: dilTIAZem HCL 30 MG TABLET PEG SCH ×4 (05:54→23:02)
[2023-02-23] MEDS: INSULIN SLIDING SCALE (NOVOLOG) 1 VIAL SQ SCH ×3 (06:07→17:31)
[2023-02-23] MEDS ORDERED: EPOETIN ALFA-EPBX 10,000 UNIT/ML VIAL IVPUSH ONE (08:00)
[2023-02-23 09:11] LABS: HEMATOCRIT 23.8 % (35.4-49); HEMOGLOBIN 7.9 GM/dL (11.7-16.9); MCH 27.6 pg (25.7-33.7); MCHC 32.9 g/dl (32.0-35.9); MEAN CELL VOLUME 83.8 fl (80-96); MEAN PLT VOLUME 6.3 fl (7.5-11.1); PLATELET COUNT 525 10^3/uL (134-434); RBC 2.85 M/mm3 (4.00-5.60); RDW 17.7 % (11.9-15.9); WHITE BLOOD COUNT 15.8 K/mm3 (4.0-10.0)
[2023-02-23 09:42] LABS: BLOOD UREA NITROGEN 49.8 mg/dL (7-18); CALCIUM 8.5 mg/dL (8.5-10.1)
[2023-02-23 09:46] LABS: CREATININE 1.6 mg/dL (0.55-1.3)
[2023-02-23] MEDS: ENOXAPARIN NA (PORCINE) 30 MG/0.3 ML DISP.SYRIN SQ SCH (12:08)
[2023-02-23] MEDS: FUROSEMIDE 40 MG/4 ML INJECTABLE VIAL IVPUSH SCH ×2 (12:09→22:10)
[2023-02-23] MEDS: COLLAGENASE CLOSTRIDIUM HIST. 30 GRAMS TUBE TP SCH (12:09)
[2023-02-23] MEDS: FAMOTIDINE 20 MG/2.5 ML ORAL LIQUID GT SCH ×2 (12:10→21:29)
[2023-02-23] MEDS: BACITRACIN ZINC 15 GM TUBE TOPICAL OINTMENT TP SCH (12:10)
[2023-02-23] MEDS: INSULIN (LEVEMIR) 100 UNITS/ML UNITS SQ SCH (21:29)
[2023-02-24] MEDS: dilTIAZem HCL 30 MG TABLET PEG SCH ×3 (05:25→17:43)
[2023-02-24] MEDS: INSULIN SLIDING SCALE (NOVOLOG) 1 VIAL SQ SCH ×3 (06:19→17:43)
[2023-02-24] MEDS: ENOXAPARIN NA (PORCINE) 30 MG/0.3 ML DISP.SYRIN SQ SCH (09:33)
[2023-02-24] MEDS: FAMOTIDINE 20 MG/2.5 ML ORAL LIQUID GT SCH ×2 (09:34→22:38)
[2023-02-24] MEDS: COLLAGENASE CLOSTRIDIUM HIST. 30 GRAMS TUBE TP SCH (09:36)
[2023-02-24] MEDS: BACITRACIN ZINC 15 GM TUBE TOPICAL OINTMENT TP SCH (09:37)
[2023-02-24] MEDS: FUROSEMIDE 40 MG/4 ML INJECTABLE VIAL IVPUSH SCH (11:00)
[2023-02-24] MEDS ORDERED: INSULIN (NOVOLOG) ASPART 100 UNITS/ML 10ML VIAL ONE (13:06)
[2023-02-24] MEDS: INSULIN (LEVEMIR) 100 UNITS/ML UNITS SQ SCH (22:38)
[2023-02-25] MEDS: dilTIAZem HCL 30 MG TABLET PEG SCH ×4 (00:30→18:04)
[2023-02-25] MEDS: INSULIN SLIDING SCALE (NOVOLOG) 1 VIAL SQ SCH ×3 (06:45→18:02)
[2023-02-25] MEDS: COLLAGENASE CLOSTRIDIUM HIST. 30 GRAMS TUBE TP SCH (10:08)
[2023-02-25] MEDS: BACITRACIN ZINC 15 GM TUBE TOPICAL OINTMENT TP SCH (10:08)
[2023-02-25] MEDS: ENOXAPARIN NA (PORCINE) 30 MG/0.3 ML DISP.SYRIN SQ SCH (10:10)
[2023-02-25] MEDS: FAMOTIDINE 20 MG/2.5 ML ORAL LIQUID GT SCH ×2 (10:11→23:00)
[2023-02-25] MEDS ORDERED: SODIUM CHLORIDE 250 ML IV PRN (13:41)
[2023-02-25] MEDS ORDERED: EPOETIN ALFA-EPBX 10,000 UNIT/ML VIAL SQ ONE (14:00)
[2023-02-25 14:35] LABS: HEMATOCRIT 21.5 % (35.4-49); MCHC 32.1 g/dl (32.0-35.9); MEAN CELL VOLUME 84.3 fl (80-96); MEAN PLT VOLUME 6.7 fl (7.5-11.1); PLATELET COUNT 506 10^3/uL (134-434); RBC 2.55 M/mm3 (4.00-5.60); RDW 18.5 % (11.9-15.9); WHITE BLOOD COUNT 12.4 K/mm3 (4.0-10.0)
[2023-02-25 14:40] LABS: HEMOGLOBIN 6.9 GM/dL (11.7-16.9)
[2023-02-25 14:52] LABS: CALCIUM 8.4 mg/dL (8.5-10.1)
[2023-02-25 14:54] LABS: BLOOD UREA NITROGEN 50.6 mg/dL (7-18)
[2023-02-25 14:56] LABS: CREATININE 1.7 mg/dL (0.55-1.3)
[2023-02-25 19:23] VITALS: BP 127/56; PULSE 75; TEMP 98.1
[2023-02-25 20:32] VITALS: RESP 20
[2023-02-25] MEDS: INSULIN (LEVEMIR) 100 UNITS/ML UNITS SQ SCH (23:00)
[2023-02-26] MEDS: dilTIAZem HCL 30 MG TABLET PEG SCH
== END 2023-02-26 03:30 | DRG 207 ==
LOC: JER 06:53 → JERBED 10:22 → UNDOADMIN 10:22 → JICU 12:29 → JERBED 12:29 → J5S 02-24 13:41
PROVIDERS: ADMIT Internal Medicine; ATTEND Family Medicine
PROC: 0B21XFZ Change Tracheostomy Device in Trachea, External Approach (ICD-10-PCS; principal; 2023-02-12)
PROC: 5A1955Z Respiratory Ventilation, Greater than 96 Consecutive Hours (ICD-10-PCS; 2023-02-12)
PROC: 5A1D70Z Performance of Urinary Filtration, Intermittent, Less than 6 Hours Per Day (ICD-10-PCS; 2023-02-14)
PROC: 5A1D70Z Performance of Urinary Filtration, Intermittent, Less than 6 Hours Per Day (ICD-10-PCS; 2023-02-16)
PROC: 5A1D70Z Performance of Urinary Filtration, Intermittent, Less than 6 Hours Per Day (ICD-10-PCS; 2023-02-18)
PROC: 5A1D70Z Performance of Urinary Filtration, Intermittent, Less than 6 Hours Per Day (ICD-10-PCS; 2023-02-21)
PROC: 5A1D70Z Performance of Urinary Filtration, Intermittent, Less than 6 Hours Per Day (ICD-10-PCS; 2023-02-23)
PROC: 5A1D70Z Performance of Urinary Filtration, Intermittent, Less than 6 Hours Per Day (ICD-10-PCS; 2023-02-25)
DX: J95.03 Malfunction of tracheostomy stoma (principal); L89.154 Pressure ulcer of sacral region, stage 4; J96.21 Acute and chronic respiratory failure with hypoxia; N18.6 End stage renal disease; I13.2 Hypertensive heart and chronic kidney disease with heart failure and with stage 5 chronic kidney disease, or end stage renal disease; J98.11 Atelectasis; G93.1 Anoxic brain damage, not elsewhere classified; N39.0 Urinary tract infection, site not specified; E87.1 Hypo-osmolality and hyponatremia; I48.0 Paroxysmal atrial fibrillation; E11.43 Type 2 diabetes mellitus with diabetic autonomic (poly)neuropathy; D64.9 Anemia, unspecified; K31.84 Gastroparesis; E78.5 Hyperlipidemia, unspecified; R19.5 Other fecal abnormalities; L89.220 Pressure ulcer of left hip, unstageable; L89.210 Pressure ulcer of right hip, unstageable; D72.829 Elevated white blood cell count, unspecified; E11.22 Type 2 diabetes mellitus with diabetic chronic kidney disease; I50.9 Heart failure, unspecified; Z99.2 Dependence on renal dialysis; Z86.74 Personal history of sudden cardiac arrest; Z93.1 Gastrostomy status; Y83.8 Other surgical procedures as the cause of abnormal reaction of the patient, or of later complication, without mention of misadventure at the time of the procedure
CPT/HCPCS: 0241U-QW; 36415; 71045-TC-FY; 71250-TC; 80048; 80053; 81003; 82803; 82962; 83605; 83735; 84100; 84484; 85025; 85027; 85610; 85730; 86704; 86707; 86803; 87077; 87086; 87186; 87324; 87340; 87449; 87635; 87899; 93005; 93010; 94002; 99285-25; G0480; P9047; Q5106

== ENCOUNTER 2023-03-25 18:44 | Inpatient (IN) | payer OTHER ==
[2023-03-25 20:50] LABS: BASO % 0.5 % (0-2.0); EOS % 0.7 % (0-4.5); HEMATOCRIT 25.7 % (35.4-49); HEMOGLOBIN 7.8 GM/dL (11.7-16.9); LYMPH % 7.9 % (8-40); MCH 26.1 pg (25.7-33.7); MCHC 30.3 g/dl (32.0-35.9); MEAN CELL VOLUME 85.9 fl (80-96); MEAN PLT VOLUME 6.4 fl (7.5-11.1); MONO % 8.8 % (3.8-10.2); NEUT % 82.1 % (42.8-82.8); PLATELET COUNT 577 10^3/uL (134-434); RBC 2.99 M/mm3 (4.00-5.60); RDW 18.6 % (11.9-15.9); WHITE BLOOD COUNT 11.5 K/mm3 (4.0-10.0)
[2023-03-25 21:00] LABS: INR 1.3 (0.83-1.09)
[2023-03-25 21:03] LABS: ACTIVATED PTT 25.8 SECONDS (25.2-36.5)
[2023-03-25 21:05] LABS: ARTERIAL BLD GAS O2 SATURATION 98.8 % (95-98); ARTERIAL BLOOD GAS BASE EXCESS 2.2 mmol/L (-2-2); ARTERIAL BLOOD GAS PO2 128.5 mmHg (80-100); ARTERIAL BLOOD GAS pH 7.498 (7.350-7.450)
[2023-03-25 21:15] LABS: CHLORIDE 95 mmol/L (98-107); POTASSIUM 3.4 mmol/L (3.5-5.1); SODIUM 135 mmol/L (136-145)
[2023-03-25 21:19] LABS: CALCIUM 8.7 mg/dL (8.5-10.1)
[2023-03-25 21:20] LABS: ALBUMIN 1.6 g/dl (3.4-5.0); ANION GAP 13 mmol/L (4-13); BLOOD UREA NITROGEN 81.3 mg/dL (7-18); CO2 26 mmol/L (21-32); GLUCOSE,RANDOM 228 mg/dL (74-106)
[2023-03-25 21:23] LABS: CREATININE 1.8 mg/dL (0.55-1.3); SGOT/AST 12 U/L (15-37); SGPT/ALT 19 U/L (13-61)
[2023-03-25 21:25] LABS: BILIRUBIN,TOTAL 0.5 mg/dL (0.2-1)
[2023-03-25 21:26] LABS: ALK PHOS 219 U/L (45-117)
[2023-03-25 21:28] LABS: TOT PROT 6.8 g/dl (6.4-8.2)
[2023-03-25] MEDS ORDERED: FUROSEMIDE 40 MG/4 ML INJECTABLE VIAL IVPUSH ONE (22:04)
[2023-03-25 22:09] LABS: EPI CELLS >36 /uL (0-25.1); HYALINE CASTS 61 /uL (0-3.1); URINE APPEARANCE TURBID; URINE BILIRUBIN 1+ (NEGATIVE); URINE COLOR DK YELLOW; URINE GLUCOSE (UA) NEGATIVE (NEGATIVE); URINE KETONE TRACE (NEGATIVE); URINE LEUK ESTERASE 2+ (NEGATIVE); URINE NITRITE NEGATIVE (NEGATIVE); URINE PROTEIN 3+ (NEGATIVE); URINE UROBILINOGEN 0.2 mg/dL (0.2-1.0); URINE WBC 2455 /uL (0-25.8)
[2023-03-25] MEDS ORDERED: FUROSEMIDE 40 MG/4 ML INJECTABLE VIAL ONE (22:16)
[2023-03-25 22:20] LABS: URINE RBC 213.8 /uL (0-23.9)
[2023-03-25 22:38] LABS: YEAST PRESENT (NEGATIVE)
[2023-03-25 22:39] LABS: URINE BACTERIA 52.9 /uL (0-1359)
[2023-03-26] MEDS ORDERED: BISACODYL 10 MG SUPP.RECT RC PRN (05:39)
[2023-03-26] MEDS ORDERED: ACETAMINOPHEN 160 MG/5 ML *Children Solution PO PRN (05:45)
[2023-03-26] MEDS ORDERED: INSULIN (NOVOLOG) ASPART 100 UNITS/ML 10ML VIAL ONE (06:24)
[2023-03-26] MEDS: INSULIN SLIDING SCALE (NOVOLOG) 1 VIAL SQ SCH ×4 (06:25→21:27)
[2023-03-26] MEDS: AMINO ACIDS/PROTEIN HYDROLYS 30 ML LIQUID.PKT GT SCH ×2 (09:05→16:54)
[2023-03-26] MEDS: FUROSEMIDE 40 MG/5 ML UNIT-DOSE CUP GT SCH (09:05)
[2023-03-26] MEDS ORDERED: VANCOMYCIN 1 GM PREMIX - 1 GM/200 ML BAG IVPB ONE (10:00)
[2023-03-26 11:23] LABS: BASO % 0.6 % (0-2.0); HEMATOCRIT 26.2 % (35.4-49); LYMPH % 16.3 % (8-40); MCH 26.5 pg (25.7-33.7); MCHC 30.7 g/dl (32.0-35.9); MEAN CELL VOLUME 86.6 fl (80-96); MEAN PLT VOLUME 6.2 fl (7.5-11.1); NEUT % 72.1 % (42.8-82.8); PLATELET COUNT 544 10^3/uL (134-434); RBC 3.02 M/mm3 (4.00-5.60); RDW 18.9 % (11.9-15.9); WHITE BLOOD COUNT 9.1 K/mm3 (4.0-10.0)
[2023-03-26 11:46] LABS: POTASSIUM 3.7 mmol/L (3.5-5.1)
[2023-03-26 11:48] LABS: CALCIUM 8.7 mg/dL (8.5-10.1)
[2023-03-26 11:49] LABS: BLOOD UREA NITROGEN 85.1 mg/dL (7-18); MAGNESIUM 2.7 mg/dL (1.8-2.4)
[2023-03-26 11:52] LABS: CREATININE 1.9 mg/dL (0.55-1.3); PHOSPHOROUS 3.4 mg/dL (2.5-4.9)
[2023-03-26] MEDS ORDERED: SODIUM CHLORIDE 250 ML IV PRN (12:30)
[2023-03-26] MEDS: HEPARIN NA (PORCINE) 5,000 UNITS/ML 1ML VIAL SQ SCH ×2 (14:01→21:27)
[2023-03-26] MEDS: BACITRACIN ZINC 15 GM TUBE TOPICAL OINTMENT TP SCH (16:55)
[2023-03-27] MEDS: HEPARIN NA (PORCINE) 5,000 UNITS/ML 1ML VIAL SQ SCH ×3 (06:11→22:30)
[2023-03-27] MEDS: INSULIN SLIDING SCALE (NOVOLOG) 1 VIAL SQ SCH ×4 (06:11→22:30)
[2023-03-27] MEDS ORDERED: DEXTROSE 50%-WATER - 25 GM/50 ML VIAL IVPUSH ONE (06:26)
[2023-03-27] MEDS ORDERED: DEXTROSE 50%-WATER 25 GM/50 ML DISP.SYRIN ONE (06:28)
[2023-03-27] MEDS: DEXTROSE 50%-WATER 25 GM/50 ML DISP.SYRIN IVPUSH ONE ×2 (07:11→19:58)
[2023-03-27] MEDS: FUROSEMIDE 40 MG/5 ML UNIT-DOSE CUP GT SCH (09:05)
[2023-03-27] MEDS: BACITRACIN ZINC 15 GM TUBE TOPICAL OINTMENT TP SCH (09:05)
[2023-03-27] MEDS: AMINO ACIDS/PROTEIN HYDROLYS 30 ML LIQUID.PKT GT SCH ×2 (09:05→16:31)
[2023-03-27] MEDS ORDERED: COLLAGENASE CLOSTRIDIUM HIST. 30 GRAMS TUBE TP SCH (17:00)
[2023-03-27] MEDS ORDERED: VANCOMYCIN/WATER FOR INJ (PEG) 1,000 MG/200 ML BAG IVPB ONE (17:08)
[2023-03-27] MEDS: PIPERACILLIN/TAZOB 3.375 GM 3.375 GM in DEXTROSE 5%-WATER - 50 ML IVPB SCH (17:22)
[2023-03-27] MEDS ORDERED: SODIUM CHLORIDE 250 ML IV PRN (21:56)
[2023-03-28] MEDS: PIPERACILLIN/TAZOB 3.375 GM 3.375 GM in DEXTROSE 5%-WATER - 50 ML IVPB SCH ×3 (01:40→19:23)
[2023-03-28] MEDS: INSULIN SLIDING SCALE (NOVOLOG) 1 VIAL SQ SCH ×4 (06:24→21:50)
[2023-03-28] MEDS: HEPARIN NA (PORCINE) 5,000 UNITS/ML 1ML VIAL SQ SCH ×3 (06:24→21:44)
[2023-03-28 09:37] LABS: BASO % 0.8 % (0-2.0); EOS % 0.9 % (0-4.5); HEMOGLOBIN 7.2 GM/dL (11.7-16.9); LYMPH % 18.5 % (8-40); MCH 26.8 pg (25.7-33.7); MCHC 31.5 g/dl (32.0-35.9); MEAN CELL VOLUME 84.9 fl (80-96); MEAN PLT VOLUME 6.1 fl (7.5-11.1); MONO % 4.3 % (3.8-10.2); NEUT % 75.5 % (42.8-82.8); PLATELET COUNT 495 10^3/uL (134-434); RBC 2.71 M/mm3 (4.00-5.60); RDW 18.8 % (11.9-15.9); WHITE BLOOD COUNT 8.5 K/mm3 (4.0-10.0)
[2023-03-28 09:53] LABS: POTASSIUM 3.3 mmol/L (3.5-5.1)
[2023-03-28 09:57] LABS: ALBUMIN 1.8 g/dl (3.4-5.0); CALCIUM 8.7 mg/dL (8.5-10.1)
[2023-03-28 10:00] LABS: CREATININE 1.1 mg/dL (0.55-1.3); PHOSPHOROUS 2.9 mg/dL (2.5-4.9)
[2023-03-28 10:02] LABS: BILIRUBIN,TOTAL 0.6 mg/dL (0.2-1); TOT PROT 6.1 g/dl (6.4-8.2)
[2023-03-28 10:26] LABS: BLOOD UREA NITROGEN 45.2 mg/dL (7-18)
[2023-03-28] MEDS: BACITRACIN ZINC 15 GM TUBE TOPICAL OINTMENT TP SCH (11:59)
[2023-03-28] MEDS: AMINO ACIDS/PROTEIN HYDROLYS 30 ML LIQUID.PKT GT SCH ×2 (11:59→16:57)
[2023-03-28] MEDS: FUROSEMIDE 40 MG/5 ML UNIT-DOSE CUP GT SCH (11:59)
[2023-03-28] MEDS ORDERED: INSULIN (NOVOLOG) ASPART 100 UNITS/ML 10ML VIAL ONE ×3 (16:56→21:50)
[2023-03-28] MEDS: CEFTAZIDIME/AVIBACTAM 1.25 GM in DEXTROSE 5%-WATER - 100 ML IVPB SCH (18:03)
[2023-03-29] MEDS: CEFTAZIDIME/AVIBACTAM 1.25 GM in DEXTROSE 5%-WATER - 100 ML IVPB SCH ×2 (01:28→10:27)
[2023-03-29] MEDS: HEPARIN NA (PORCINE) 5,000 UNITS/ML 1ML VIAL SQ SCH ×3 (06:05→21:41)
[2023-03-29] MEDS ORDERED: INSULIN (NOVOLOG) ASPART 100 UNITS/ML 10ML VIAL ONE ×3 (06:22→21:40)
[2023-03-29] MEDS: INSULIN SLIDING SCALE (NOVOLOG) 1 VIAL SQ SCH ×4 (06:23→21:41)
[2023-03-29] MEDS ORDERED: DEXTROSE 50%-WATER 25 GM/50 ML DISP.SYRIN ONE (08:18)
[2023-03-29] MEDS: AMINO ACIDS/PROTEIN HYDROLYS 30 ML LIQUID.PKT GT SCH ×2 (09:01→17:57)
[2023-03-29] MEDS: FUROSEMIDE 40 MG/5 ML UNIT-DOSE CUP GT SCH (10:27)
[2023-03-29] MEDS: BACITRACIN ZINC 15 GM TUBE TOPICAL OINTMENT TP SCH (10:28)
[2023-03-29] MEDS ORDERED: SODIUM CHLORIDE 250 ML IV PRN (12:45)
[2023-03-29] MEDS ORDERED: TIGECYCLINE 100 MG in DEXTROSE 5%-WATER - 100 ML IVPB ONE (15:10)
[2023-03-29 15:51] VITALS: BMI 28.6
[2023-03-30] MEDS: HEPARIN NA (PORCINE) 5,000 UNITS/ML 1ML VIAL SQ SCH ×2 (06:28→13:18)
[2023-03-30] MEDS: INSULIN SLIDING SCALE (NOVOLOG) 1 VIAL SQ SCH ×3 (06:28→17:32)
[2023-03-30 07:25] LABS: IRON SERUM 28 ug/dL (50-175); TOTAL IRON BINDING CAPACITY 114 ug/dL (250-450)
[2023-03-30 07:29] LABS: HEMATOCRIT 24.8 % (35.4-49); HEMOGLOBIN 7.6 GM/dL (11.7-16.9); MCH 26.5 pg (25.7-33.7); MCHC 30.7 g/dl (32.0-35.9); MEAN CELL VOLUME 86.4 fl (80-96); PLATELET COUNT 466 10^3/uL (134-434); RBC 2.87 M/mm3 (4.00-5.60); RDW 18.5 % (11.9-15.9); WHITE BLOOD COUNT 12.3 K/mm3 (4.0-10.0)
[2023-03-30 07:31] LABS: BLOOD UREA NITROGEN 59.4 mg/dL (7-18); CALCIUM 8.4 mg/dL (8.5-10.1); CREATININE 1.5 mg/dL (0.55-1.3); POTASSIUM 3.9 mmol/L (3.5-5.1)
[2023-03-30] MEDS: ALBUMIN HUMAN 25% 12.5 GM/50 ML VIAL IV SCH ×4 (08:15→10:03)
[2023-03-30] MEDS: AMINO ACIDS/PROTEIN HYDROLYS 30 ML LIQUID.PKT GT SCH ×2 (08:50→17:32)
[2023-03-30] MEDS ORDERED: EPOETIN ALFA-EPBX 10,000 UNIT/ML VIAL IVPUSH ONE (09:00)
[2023-03-30] MEDS: FUROSEMIDE 40 MG/5 ML UNIT-DOSE CUP GT SCH (11:46)
[2023-03-30] MEDS: BACITRACIN ZINC 15 GM TUBE TOPICAL OINTMENT TP SCH (11:47)
[2023-03-30 16:29] VITALS: RESP 20
[2023-03-30 20:34] VITALS: BP 122/83; PULSE 120; TEMP 98.1
== END 2023-03-30 20:30 | DRG 870 ==
LOC: JER 18:44 → JERBED 22:16 → J2W 03-26 01:13
PROVIDERS: ADMIT Internal Medicine; ATTEND Family Medicine
PROC: 5A1955Z Respiratory Ventilation, Greater than 96 Consecutive Hours (ICD-10-PCS; principal; 2023-03-25)
PROC: 5A1D70Z Performance of Urinary Filtration, Intermittent, Less than 6 Hours Per Day (ICD-10-PCS; 2023-03-26)
DX: A41.9 Sepsis, unspecified organism (principal); N18.6 End stage renal disease; I12.0 Hypertensive chronic kidney disease with stage 5 chronic kidney disease or end stage renal disease; G93.1 Anoxic brain damage, not elsewhere classified; Z99.11 Dependence on respirator [ventilator] status; J96.10 Chronic respiratory failure, unspecified whether with hypoxia or hypercapnia; E11.22 Type 2 diabetes mellitus with diabetic chronic kidney disease; Z99.2 Dependence on renal dialysis; I48.0 Paroxysmal atrial fibrillation; Z86.74 Personal history of sudden cardiac arrest; Z93.0 Tracheostomy status; D64.9 Anemia, unspecified; E87.6 Hypokalemia; E88.09 Other disorders of plasma-protein metabolism, not elsewhere classified; D69.6 Thrombocytopenia, unspecified; E03.9 Hypothyroidism, unspecified; Z79.4 Long term (current) use of insulin; E11.43 Type 2 diabetes mellitus with diabetic autonomic (poly)neuropathy; K31.84 Gastroparesis; L89.320 Pressure ulcer of left buttock, unstageable; L89.620 Pressure ulcer of left heel, unstageable; L89.610 Pressure ulcer of right heel, unstageable; L89.150 Pressure ulcer of sacral region, unstageable
CPT/HCPCS: 0241U-QW; 36415; 36600; 71045-TC-FY; 80048; 80053; 81003; 82550; 82553; 82803; 82962; 83540; 83550; 83605; 83735; 84100; 84484; 85025; 85027; 85610; 85730; 86704; 86803; 86850; 86900; 86901; 87040; 87070; 87077; 87086; 87184; 87186; 87205; 87340; 87517; 87635; 93005; 93010; 94002; 99291; 99292; J1644; J3243; P9047; Q5106

== ENCOUNTER 2023-04-23 05:31 | Inpatient (IN) | payer OTHER ==
[2023-04-23 06:20] LABS: HEMATOCRIT 18.8 % (35.4-49); MCH 27.9 pg (25.7-33.7); MCHC 31.8 g/dl (32.0-35.9); MEAN CELL VOLUME 87.6 fl (80-96); MEAN PLT VOLUME 6.1 fl (7.5-11.1); PLATELET COUNT 481 10^3/uL (134-434); RBC 2.14 M/mm3 (4.00-5.60); WHITE BLOOD COUNT 13.1 K/mm3 (4.0-10.0)
[2023-04-23 06:31] LABS: POTASSIUM 3.2 mmol/L (3.5-5.1)
[2023-04-23 06:34] LABS: CALCIUM 8.6 mg/dL (8.5-10.1)
[2023-04-23 06:35] LABS: ALBUMIN 1.4 g/dl (3.4-5.0); BLOOD UREA NITROGEN 31.8 mg/dL (7-18)
[2023-04-23 06:38] LABS: BILIRUBIN,TOTAL 0.3 mg/dL (0.2-1); TOT PROT 6.2 g/dl (6.4-8.2)
[2023-04-23 08:44] LABS: ANISOCYTOSIS 0; HELMET CELLS 0; HOWELL-JOLLY BODIES 0; MACROCYTOSIS 0; OVALOCYTE 0; ROULEAU 0; SICKELED CELLS 0; TARGET CELLS 0; TEAR DROP CELLS 0; TOXIC GRANULATION 0
[2023-04-23 10:59] LABS: EPI CELLS 15 /uL (0-25.1); HYALINE CASTS 9 /uL (0-3.1); PH,URINE 7.5 (5.0-8.0); URINE APPEARANCE TURBID; URINE BACTERIA >9,000 /uL (0-1359); URINE BILIRUBIN 1+ (NEGATIVE); URINE COLOR DK YELLOW; URINE GLUCOSE (UA) NEGATIVE (NEGATIVE); URINE KETONE TRACE (NEGATIVE); URINE LEUK ESTERASE 3+ (NEGATIVE); URINE NITRITE NEGATIVE (NEGATIVE); URINE PROTEIN 3+ (NEGATIVE); URINE WBC 17901 /uL (0-25.8)
[2023-04-23 11:10] LABS: URINE RBC 446 /uL (0-23.9); YEAST FEW (NEGATIVE)
[2023-04-23] MEDS ORDERED: BISACODYL 10 MG SUPP.RECT RC PRN (11:21)
[2023-04-23] MEDS ORDERED: PANTOPRAZOLE SODIUM 40 MG VIAL ONE (12:23)
[2023-04-23] MEDS ORDERED: PANTOPRAZOLE SODIUM 40 MG VIAL IVPUSH SCH (12:30)
[2023-04-23] MEDS: dilTIAZem HCL 30 MG TABLET PEG SCH ×2 (12:35→18:52)
[2023-04-23 12:43] LABS: HEMATOCRIT 23.8 % (35.4-49); HEMOGLOBIN 7.4 GM/dL (11.7-16.9); MCH 26.9 pg (25.7-33.7); MCHC 31.3 g/dl (32.0-35.9); MEAN CELL VOLUME 85.8 fl (80-96); MEAN PLT VOLUME 6.4 fl (7.5-11.1); PLATELET COUNT 492 10^3/uL (134-434); RBC 2.77 M/mm3 (4.00-5.60); RDW 18.7 % (11.9-15.9); WHITE BLOOD COUNT 16.3 K/mm3 (4.0-10.0)
[2023-04-23 13:32] LABS: ANISOCYTOSIS 0; HELMET CELLS 0; HOWELL-JOLLY BODIES 0; MACROCYTOSIS 0; OVALOCYTE 0; ROULEAU 0; SICKELED CELLS 0; TARGET CELLS 0; TEAR DROP CELLS 0; TOXIC GRANULATION 0
[2023-04-23] MEDS: AMINO ACIDS/PROTEIN HYDROLYS 30 ML LIQUID.PKT GT SCH (17:50)
[2023-04-23] MEDS: ALBUTEROL SO4 2.5/IPRATROPIUM 0.5 INH SOL 3 ML VIAL.NEB. NEB SCH (20:36)
[2023-04-24] MEDS: dilTIAZem HCL 30 MG TABLET PEG SCH ×4 (01:13→17:23)
[2023-04-24 06:14] LABS: HEMATOCRIT 19.8 % (35.4-49); MCH 27.1 pg (25.7-33.7); MCHC 31.4 g/dl (32.0-35.9); MEAN CELL VOLUME 86.3 fl (80-96); MEAN PLT VOLUME 6.3 fl (7.5-11.1); PLATELET COUNT 465 10^3/uL (134-434); RBC 2.29 M/mm3 (4.00-5.60); RDW 18.8 % (11.9-15.9); WHITE BLOOD COUNT 12.8 K/mm3 (4.0-10.0)
[2023-04-24 06:23] LABS: HEMOGLOBIN 6.2 GM/dL (11.7-16.9)
[2023-04-24 06:31] LABS: POTASSIUM 4.5 mmol/L (3.5-5.1)
[2023-04-24 06:33] LABS: BLOOD UREA NITROGEN 43.5 mg/dL (7-18); CALCIUM 8.7 mg/dL (8.5-10.1)
[2023-04-24 06:37] LABS: CREATININE 1.2 mg/dL (0.55-1.3)
[2023-04-24] MEDS ORDERED: INSULIN (LEVEMIR) 100 UNITS/ML UNITS SQ SCH (07:00)
[2023-04-24] MEDS: AMINO ACIDS/PROTEIN HYDROLYS 30 ML LIQUID.PKT GT SCH ×2 (09:12→17:23)
[2023-04-24 09:25] LABS: ANISOCYTOSIS 3+; MACROCYTOSIS 0
[2023-04-24] MEDS: FUROSEMIDE 40 MG/5 ML UNIT-DOSE CUP PEG SCH (09:57)
[2023-04-24] MEDS: ALBUTEROL SO4 2.5/IPRATROPIUM 0.5 INH SOL 3 ML VIAL.NEB. NEB SCH ×4 (10:00→22:45)
[2023-04-24] MEDS ORDERED: COLLAGENASE CLOSTRIDIUM HIST. 30 GRAMS TUBE TP SCH (10:00)
[2023-04-24] MEDS ORDERED: ALBUTEROL SO4 2.5/IPRATROPIUM 0.5 INH SOL 3 ML VIAL.NEB. NEB ONE ×4 (10:13→22:43)
[2023-04-24] MEDS ORDERED: PIPERACILLIN/TAZOB 3.375 GM 3.375 GM in DEXTROSE 5%-WATER - 50 ML IVPB SCH (10:15)
[2023-04-24] MEDS ORDERED: BACITRACIN ZINC 15 GM TUBE TOPICAL OINTMENT ONE (10:24)
[2023-04-24] MEDS: BACITRACIN ZINC 15 GM TUBE TOPICAL OINTMENT TP SCH (10:26)
[2023-04-24] MEDS: PANTOPRAZOLE SODIUM 40 MG VIAL IVPUSH SCH ×2 (11:15→22:35)
[2023-04-24] MEDS ORDERED: dilTIAZem HCL 30 MG TABLET ONE ×2 (11:15→22:12)
[2023-04-24] MEDS ORDERED: SODIUM CHLORIDE 250 ML IV PRN (11:22)
[2023-04-24] MEDS ORDERED: PIPERACILLIN/TAZOB 2.25 GM 2.25 GM/50 ML BAG IVPB ONE (17:21)
[2023-04-24] MEDS: PIPERACILLIN/TAZOB 2.25 GM 2.25 GM in DEXTROSE 5%-WATER - 50 ML IVPB SCH (17:23)
[2023-04-24] MEDS ORDERED: PIPERACILLIN/TAZOB 2.25 GM 2.25 GM in DEXTROSE 5%-WATER - 50 ML IVPB SCH (18:00)
[2023-04-24] MEDS ORDERED: PANTOPRAZOLE SODIUM 40 MG/100 ML BAG IVPB ONE (21:54)
[2023-04-24] MEDS ORDERED: PANTOPRAZOLE SODIUM 40 MG VIAL ONE (21:55)
[2023-04-25] MEDS: dilTIAZem HCL 30 MG TABLET PEG SCH ×5 (00:25→23:47)
[2023-04-25] MEDS ORDERED: PIPERACILLIN/TAZOB 2.25 GM 2.25 GM/50 ML BAG IVPB ONE ×2 (02:18→09:14)
[2023-04-25] MEDS: PIPERACILLIN/TAZOB 2.25 GM 2.25 GM in DEXTROSE 5%-WATER - 50 ML IVPB SCH ×2 (02:54→09:31)
[2023-04-25] MEDS ORDERED: dilTIAZem HCL 30 MG TABLET ONE (04:50)
[2023-04-25] MEDS ORDERED: ALBUTEROL SO4 2.5/IPRATROPIUM 0.5 INH SOL 3 ML VIAL.NEB. NEB ONE ×2 (08:53→15:42)
[2023-04-25] MEDS: FUROSEMIDE 40 MG/5 ML UNIT-DOSE CUP PEG SCH (09:30)
[2023-04-25] MEDS: BACITRACIN ZINC 15 GM TUBE TOPICAL OINTMENT TP SCH (09:30)
[2023-04-25] MEDS: ALBUTEROL SO4 2.5/IPRATROPIUM 0.5 INH SOL 3 ML VIAL.NEB. NEB SCH ×4 (09:30→20:05)
[2023-04-25] MEDS: PANTOPRAZOLE SODIUM 40 MG VIAL IVPUSH SCH (09:30)
[2023-04-25] MEDS: AMINO ACIDS/PROTEIN HYDROLYS 30 ML LIQUID.PKT GT SCH ×2 (09:30→17:34)
[2023-04-25] MEDS: INSULIN SLIDING SCALE (NOVOLOG) 1 VIAL SQ SCH ×3 (11:28→21:19)
[2023-04-25 11:52] LABS: HEMATOCRIT 19.5 % (35.4-49); MCH 26.1 pg (25.7-33.7); MCHC 30.3 g/dl (32.0-35.9); MEAN CELL VOLUME 86.2 fl (80-96); MEAN PLT VOLUME 6.2 fl (7.5-11.1); PLATELET COUNT 514 10^3/uL (134-434); RBC 2.26 M/mm3 (4.00-5.60); RDW 19.1 % (11.9-15.9); WHITE BLOOD COUNT 13.2 K/mm3 (4.0-10.0)
[2023-04-25 11:58] LABS: HEMOGLOBIN 5.9 GM/dL (11.7-16.9)
[2023-04-25 12:12] LABS: POTASSIUM 3.7 mmol/L (3.5-5.1)
[2023-04-25 12:14] LABS: CALCIUM 8.4 mg/dL (8.5-10.1)
[2023-04-25 12:15] LABS: ALBUMIN 1.5 g/dl (3.4-5.0); BLOOD UREA NITROGEN 59.6 mg/dL (7-18)
[2023-04-25 12:19] LABS: CREATININE 1.7 mg/dL (0.55-1.3); TOT PROT 6.3 g/dl (6.4-8.2)
[2023-04-25 12:20] LABS: BILIRUBIN,TOTAL 0.6 mg/dL (0.2-1)
[2023-04-25 14:26] LABS: ANISOCYTOSIS 2+; MACROCYTOSIS 0
[2023-04-26] MEDS: PIPERACILLIN/TAZOB 3.375 GM 3.375 GM in DEXTROSE 5%-WATER - 50 ML IVPB SCH ×3 (02:51→13:29)
[2023-04-26] MEDS: dilTIAZem HCL 30 MG TABLET PEG SCH ×3 (05:28→17:45)
[2023-04-26] MEDS: INSULIN SLIDING SCALE (NOVOLOG) 1 VIAL SQ SCH ×4 (06:02→21:18)
[2023-04-26] MEDS ORDERED: PIPERACILLIN/TAZOBACTAM 3.375 GM VIAL IVPB ONE (07:54)
[2023-04-26] MEDS: AMINO ACIDS/PROTEIN HYDROLYS 30 ML LIQUID.PKT GT SCH ×2 (08:18→17:45)
[2023-04-26] MEDS ORDERED: EPOETIN ALFA-EPBX 10,000 UNIT/ML VIAL IVPUSH ONE (08:30)
[2023-04-26 08:33] LABS: HEMATOCRIT 19.1 % (35.4-49); MCH 27.1 pg (25.7-33.7); MCHC 32.2 g/dl (32.0-35.9); MEAN PLT VOLUME 5.9 fl (7.5-11.1); PLATELET COUNT 534 10^3/uL (134-434); RBC 2.27 M/mm3 (4.00-5.60); RDW 18.6 % (11.9-15.9); WHITE BLOOD COUNT 11.3 K/mm3 (4.0-10.0)
[2023-04-26] MEDS: ALBUTEROL SO4 2.5/IPRATROPIUM 0.5 INH SOL 3 ML VIAL.NEB. NEB SCH ×4 (08:50→20:30)
[2023-04-26 08:57] LABS: POTASSIUM 3.4 mmol/L (3.5-5.1)
[2023-04-26 08:58] LABS: CALCIUM 8.2 mg/dL (8.5-10.1)
[2023-04-26 08:59] LABS: BLOOD UREA NITROGEN 65.3 mg/dL (7-18)
[2023-04-26 09:03] LABS: CREATININE 1.7 mg/dL (0.55-1.3)
[2023-04-26 09:10] LABS: HEMOGLOBIN 6.1 GM/dL (11.7-16.9)
[2023-04-26 11:41] LABS: RETICULOCYTES 4.41 % (0.5-1.5)
[2023-04-26] MEDS: BACITRACIN ZINC 15 GM TUBE TOPICAL OINTMENT TP SCH (11:59)
[2023-04-26] MEDS: FUROSEMIDE 40 MG/5 ML UNIT-DOSE CUP PEG SCH (12:00)
[2023-04-26 12:37] LABS: INR 1.3 (0.83-1.09)
[2023-04-26] MEDS: PANTOPRAZOLE SODIUM 40 MG VIAL IVPUSH SCH (13:27)
[2023-04-27] MEDS: dilTIAZem HCL 30 MG TABLET PEG SCH ×4 (00:58→17:21)
[2023-04-27] MEDS: PIPERACILLIN/TAZOB 3.375 GM 3.375 GM in DEXTROSE 5%-WATER - 50 ML IVPB SCH ×3 (06:03→10:07)
[2023-04-27] MEDS: INSULIN SLIDING SCALE (NOVOLOG) 1 VIAL SQ SCH ×3 (06:05→17:21)
[2023-04-27] MEDS: ALBUTEROL SO4 2.5/IPRATROPIUM 0.5 INH SOL 3 ML VIAL.NEB. NEB SCH ×4 (08:40→20:05)
[2023-04-27] MEDS: AMINO ACIDS/PROTEIN HYDROLYS 30 ML LIQUID.PKT GT SCH ×2 (08:48→17:22)
[2023-04-27 09:10] LABS: HEMATOCRIT 20.4 % (35.4-49); INR 1.31 (0.83-1.09); MCH 26.9 pg (25.7-33.7); MCHC 31.2 g/dl (32.0-35.9); MEAN CELL VOLUME 86.3 fl (80-96); MEAN PLT VOLUME 5.9 fl (7.5-11.1); PLATELET COUNT 575 10^3/uL (134-434); PROTHROMBIN TIME (PATIENT) 15.2 SEC (9.7-13.0); RBC 2.36 M/mm3 (4.00-5.60); RDW 18.6 % (11.9-15.9); WHITE BLOOD COUNT 12.3 K/mm3 (4.0-10.0)
[2023-04-27 09:12] LABS: ACTIVATED PTT 30.6 SECONDS (25.2-36.5)
[2023-04-27 09:22] LABS: HEMOGLOBIN 6.3 GM/dL (11.7-16.9)
[2023-04-27 09:27] LABS: CALCIUM 8.1 mg/dL (8.5-10.1)
[2023-04-27 09:31] LABS: CREATININE 1.3 mg/dL (0.55-1.3)
[2023-04-27 09:32] LABS: BILIRUBIN,TOTAL 0.8 mg/dL (0.2-1); TOT PROT 6.2 g/dl (6.4-8.2)
[2023-04-27] MEDS: PANTOPRAZOLE SODIUM 40 MG VIAL IVPUSH SCH (10:08)
[2023-04-27 10:11] LABS: ALBUMIN 1.9 g/dl (3.4-5.0)
[2023-04-27 10:46] LABS: ANISOCYTOSIS 2+; MACROCYTOSIS 0
[2023-04-27] MEDS: FUROSEMIDE 40 MG/5 ML UNIT-DOSE CUP PEG SCH (11:45)
[2023-04-27] MEDS: VITAMIN B COMP W-C 1 EA TABLET (NEPHRO-VITE) PEG SCH (11:45)
[2023-04-27] MEDS: BACITRACIN ZINC 15 GM TUBE TOPICAL OINTMENT TP SCH (11:56)
[2023-04-27] MEDS: CEFTRIAXONE 1 GM in DEXTROSE 5%-WATER - 50 ML IVPB SCH (12:53)
[2023-04-27] MEDS ORDERED: POTASSIUM CHLORIDE ORAL LIQUID 20 MEQ/15 ML PO ONE (13:23)
[2023-04-28] MEDS: INSULIN SLIDING SCALE (NOVOLOG) 1 VIAL SQ SCH ×4 (00:29→17:16)
[2023-04-28] MEDS: dilTIAZem HCL 30 MG TABLET PEG SCH ×4 (00:33→17:24)
[2023-04-28] MEDS: ALBUTEROL SO4 2.5/IPRATROPIUM 0.5 INH SOL 3 ML VIAL.NEB. NEB SCH ×3 (07:46→15:58)
[2023-04-28] MEDS ORDERED: SODIUM CHLORIDE 250 ML IV PRN (07:58)
[2023-04-28] MEDS ORDERED: EPOETIN ALFA-EPBX 20,000 UNIT/ML VIAL IVPUSH ONE (09:00)
[2023-04-28 09:25] LABS: HEMATOCRIT 18.9 % (35.4-49); MCH 26.5 pg (25.7-33.7); MCHC 30.2 g/dl (32.0-35.9); MEAN CELL VOLUME 87.7 fl (80-96); PLATELET COUNT 549 10^3/uL (134-434); RBC 2.16 M/mm3 (4.00-5.60); RDW 19.1 % (11.9-15.9); WHITE BLOOD COUNT 11.5 K/mm3 (4.0-10.0)
[2023-04-28 09:42] LABS: HEMOGLOBIN 5.7 GM/dL (11.7-16.9)
[2023-04-28 10:16] LABS: POTASSIUM 3.3 mmol/L (3.5-5.1)
[2023-04-28 10:22] LABS: CALCIUM 8.3 mg/dL (8.5-10.1)
[2023-04-28 10:23] LABS: ALBUMIN 1.7 g/dl (3.4-5.0)
[2023-04-28 10:25] LABS: TOT PROT 5.8 g/dl (6.4-8.2)
[2023-04-28 10:26] LABS: CREATININE 1.7 mg/dL (0.55-1.3)
[2023-04-28 10:34] LABS: ANISOCYTOSIS 1+; MACROCYTOSIS 1+
[2023-04-28 11:16] LABS: BILIRUBIN,TOTAL 0.6 mg/dL (0.2-1)
[2023-04-28] MEDS: AMINO ACIDS/PROTEIN HYDROLYS 30 ML LIQUID.PKT GT SCH ×2 (12:28→17:24)
[2023-04-28] MEDS: BACITRACIN ZINC 15 GM TUBE TOPICAL OINTMENT TP SCH (12:28)
[2023-04-28] MEDS: VITAMIN B COMP W-C 1 EA TABLET (NEPHRO-VITE) PEG SCH (12:28)
[2023-04-28] MEDS: FUROSEMIDE 40 MG/5 ML UNIT-DOSE CUP PEG SCH (12:30)
[2023-04-28] MEDS: PANTOPRAZOLE SODIUM 40 MG VIAL IVPUSH SCH (15:11)
[2023-04-28] MEDS: CEFTRIAXONE 1 GM in DEXTROSE 5%-WATER - 50 ML IVPB SCH (15:11)
[2023-04-29] MEDS: INSULIN SLIDING SCALE (NOVOLOG) 1 VIAL SQ SCH ×5 (01:33→22:18)
[2023-04-29] MEDS: dilTIAZem HCL 30 MG TABLET PEG SCH ×4 (01:35→18:00)
[2023-04-29] MEDS: AMINO ACIDS/PROTEIN HYDROLYS 30 ML LIQUID.PKT GT SCH ×2 (09:03→17:30)
[2023-04-29] MEDS: ACETAMINOPHEN 1000 MG/100 ML BAG IVPB PRN (09:03)
[2023-04-29] MEDS: BACITRACIN ZINC 15 GM TUBE TOPICAL OINTMENT TP SCH (09:19)
[2023-04-29 10:10] LABS: HEMATOCRIT 27.6 % (35.4-49); HEMOGLOBIN 8.8 GM/dL (11.7-16.9); MCH 27.2 pg (25.7-33.7); MCHC 31.8 g/dl (32.0-35.9); MEAN CELL VOLUME 85.7 fl (80-96); MEAN PLT VOLUME 5.9 fl (7.5-11.1); PLATELET COUNT 456 10^3/uL (134-434); RBC 3.22 M/mm3 (4.00-5.60); RDW 17.9 % (11.9-15.9)
[2023-04-29 10:37] LABS: POTASSIUM 3.1 mmol/L (3.5-5.1)
[2023-04-29 10:40] LABS: BLOOD UREA NITROGEN 50.9 mg/dL (7-18)
[2023-04-29 10:41] LABS: ALBUMIN 1.8 g/dl (3.4-5.0); CALCIUM 8.4 mg/dL (8.5-10.1)
[2023-04-29 10:44] LABS: CREATININE 1.3 mg/dL (0.55-1.3)
[2023-04-29 10:45] LABS: ANISOCYTOSIS 0; MACROCYTOSIS 0
[2023-04-29] MEDS: PANTOPRAZOLE SODIUM 40 MG VIAL IVPUSH SCH (10:45)
[2023-04-29] MEDS: VITAMIN B COMP W-C 1 EA TABLET (NEPHRO-VITE) PEG SCH (10:45)
[2023-04-29 10:46] LABS: BILIRUBIN,TOTAL 0.8 mg/dL (0.2-1); TOT PROT 6.3 g/dl (6.4-8.2)
[2023-04-29] MEDS: FUROSEMIDE 40 MG/5 ML UNIT-DOSE CUP PEG SCH (10:46)
[2023-04-29] MEDS: CEFTRIAXONE 1 GM in DEXTROSE 5%-WATER - 50 ML IVPB SCH (10:47)
[2023-04-29] MEDS ORDERED: POTASSIUM CHLORIDE ORAL LIQUID 20 MEQ/15 ML PO ONE (14:15)
[2023-04-29] MEDS: COLLAGENASE CLOSTRIDIUM HIST. 30 GRAMS TUBE TP SCH (18:21)
[2023-04-30] MEDS: dilTIAZem HCL 30 MG TABLET PEG SCH ×4 (05:25→18:00)
[2023-04-30] MEDS: INSULIN SLIDING SCALE (NOVOLOG) 1 VIAL SQ SCH ×4 (06:14→21:49)
[2023-04-30] MEDS: ACETAMINOPHEN 1000 MG/100 ML BAG IVPB PRN (06:38)
[2023-04-30] MEDS ORDERED: SODIUM CHLORIDE 250 ML IV PRN (08:16)
[2023-04-30] MEDS ORDERED: EPOETIN ALFA-EPBX 20,000 UNIT/ML VIAL SQ ONE (09:00)
[2023-04-30] MEDS: PANTOPRAZOLE SODIUM 40 MG VIAL IVPUSH SCH (09:50)
[2023-04-30] MEDS: BACITRACIN ZINC 15 GM TUBE TOPICAL OINTMENT TP SCH (09:51)
[2023-04-30] MEDS: COLLAGENASE CLOSTRIDIUM HIST. 30 GRAMS TUBE TP SCH (11:52)
[2023-04-30] MEDS: AMINO ACIDS/PROTEIN HYDROLYS 30 ML LIQUID.PKT GT SCH ×2 (11:52→17:26)
[2023-04-30] MEDS: FUROSEMIDE 40 MG/5 ML UNIT-DOSE CUP PEG SCH (11:53)
[2023-04-30] MEDS: VITAMIN B COMP W-C 1 EA TABLET (NEPHRO-VITE) PEG SCH (11:54)
[2023-04-30 13:42] LABS: HEMATOCRIT 27.1 % (35.4-49); HEMOGLOBIN 8.9 GM/dL (11.7-16.9); MCH 27.8 pg (25.7-33.7); MCHC 32.7 g/dl (32.0-35.9); MEAN CELL VOLUME 85.2 fl (80-96); MEAN PLT VOLUME 5.9 fl (7.5-11.1); PLATELET COUNT 405 10^3/uL (134-434); RBC 3.19 M/mm3 (4.00-5.60); RDW 17.7 % (11.9-15.9); WHITE BLOOD COUNT 18.2 K/mm3 (4.0-10.0)
[2023-04-30] MEDS: ALBUMIN HUMAN 25% 12.5 GM/50 ML VIAL IV SCH ×3 (14:00→15:00)
[2023-04-30 14:02] LABS: POTASSIUM 3.6 mmol/L (3.5-5.1)
[2023-04-30 14:03] LABS: CALCIUM 9.1 mg/dL (8.5-10.1)
[2023-04-30 14:04] LABS: ALBUMIN 1.7 g/dl (3.4-5.0); BLOOD UREA NITROGEN 64.9 mg/dL (7-18)
[2023-04-30 14:07] LABS: CREATININE 1.7 mg/dL (0.55-1.3)
[2023-04-30 14:08] LABS: TOT PROT 6.2 g/dl (6.4-8.2)
[2023-04-30] MEDS: AMINO ACIDS 4.25%/D5W 1,000 ML IV SCH ×3 (16:44→22:08)
[2023-04-30] MEDS ORDERED: dilTIAZem HCL 50 MG/10 ML - 10 ML VIAL IVPUSH ONE (18:38)
[2023-04-30] MEDS ORDERED: dilTIAZem HCL 25 MG/5 ML - 5 ML VIAL IVPUSH ONE ×2 (18:45→19:44)
[2023-04-30] MEDS ORDERED: METOPROLOL TARTRATE 5 MG/5 ML VIAL ONE (18:51)
[2023-04-30] MEDS ORDERED: dilTIAZem HCL 50 MG/10 ML - 10 ML VIAL ONE (19:46)
[2023-04-30] MEDS ORDERED: dilTIAZem HCL 125 MG/25 ML - 25 ML VIAL ONE (19:48)
[2023-04-30] MEDS ORDERED: MAGNESIUM SULFATE IN WATER 2 GM/50 ML IVPB IVPB ONE (20:01)
[2023-04-30] MEDS ORDERED: MAGNESIUM SULF 50% (8.12 MEQ/2 ML-1 GM VIAL) ONE ×2 (20:04→20:06)
[2023-04-30] MEDS ORDERED: INSULIN (NOVOLOG) ASPART 100 UNITS/ML 10ML VIAL ONE (21:48)
[2023-04-30] MEDS: FUROSEMIDE 40 MG/4 ML INJECTABLE VIAL IVPUSH SCH (21:49)
[2023-05-01] MEDS: INSULIN SLIDING SCALE (NOVOLOG) 1 VIAL SQ SCH ×4 (06:02→21:32)
[2023-05-01 07:27] LABS: MCH 27.8 pg (25.7-33.7); MCHC 32.1 g/dl (32.0-35.9); MEAN CELL VOLUME 86.8 fl (80-96); MEAN PLT VOLUME 6.2 fl (7.5-11.1); PLATELET COUNT 349 10^3/uL (134-434); RBC 2.88 M/mm3 (4.00-5.60); RDW 18.2 % (11.9-15.9); WHITE BLOOD COUNT 14.7 K/mm3 (4.0-10.0)
[2023-05-01 07:29] LABS: POTASSIUM 3.3 mmol/L (3.5-5.1)
[2023-05-01 07:32] LABS: CALCIUM 8.8 mg/dL (8.5-10.1)
[2023-05-01 07:33] LABS: BLOOD UREA NITROGEN 40.8 mg/dL (7-18)
[2023-05-01 07:36] LABS: CREATININE 1.2 mg/dL (0.55-1.3)
[2023-05-01 07:37] LABS: BILIRUBIN,TOTAL 1.4 mg/dL (0.2-1); TOT PROT 6.1 g/dl (6.4-8.2)
[2023-05-01] MEDS: AMINO ACIDS/PROTEIN HYDROLYS 30 ML LIQUID.PKT GT SCH ×2 (08:00→17:13)
[2023-05-01 08:04] LABS: ALBUMIN 2.1 g/dl (3.4-5.0)
[2023-05-01] MEDS: VITAMIN B COMP W-C 1 EA TABLET (NEPHRO-VITE) PEG SCH (09:05)
[2023-05-01] MEDS: FUROSEMIDE 40 MG/4 ML INJECTABLE VIAL IVPUSH SCH (10:18)
[2023-05-01] MEDS: PANTOPRAZOLE SODIUM 40 MG VIAL IVPUSH SCH (10:18)
[2023-05-01] MEDS: BACITRACIN ZINC 15 GM TUBE TOPICAL OINTMENT TP SCH (10:18)
[2023-05-01] MEDS: COLLAGENASE CLOSTRIDIUM HIST. 30 GRAMS TUBE TP SCH (11:14)
[2023-05-01] MEDS: AMINO ACIDS 4.25%/D5W 1,000 ML IV SCH (13:44)
[2023-05-02] MEDS: AMINO ACIDS 4.25%/D5W 1,000 ML IV SCH ×2 (03:55→16:33)
[2023-05-02] MEDS: INSULIN SLIDING SCALE (NOVOLOG) 1 VIAL SQ SCH ×4 (06:20→21:38)
[2023-05-02 06:56] LABS: BASO % 0.2 % (0-2.0); EOS % 0.5 % (0-4.5); HEMATOCRIT 24.8 % (35.4-49); HEMOGLOBIN 7.4 GM/dL (11.7-16.9); LYMPH % 12.1 % (8-40); MCH 25.5 pg (25.7-33.7); MCHC 29.9 g/dl (32.0-35.9); MEAN CELL VOLUME 85.2 fl (80-96); MEAN PLT VOLUME 6.5 fl (7.5-11.1); MONO % 8.3 % (3.8-10.2); NEUT % 78.9 % (42.8-82.8); PLATELET COUNT 356 10^3/uL (134-434); RBC 2.91 M/mm3 (4.00-5.60); WHITE BLOOD COUNT 12.1 K/mm3 (4.0-10.0)
[2023-05-02 07:26] LABS: CHLORIDE 101 mmol/L (98-107); SODIUM 138 mmol/L (136-145)
[2023-05-02] MEDS: AMINO ACIDS/PROTEIN HYDROLYS 30 ML LIQUID.PKT GT SCH ×2 (07:28→18:32)
[2023-05-02 07:30] LABS: ANION GAP 9 mmol/L (4-13); BLOOD UREA NITROGEN 59.2 mg/dL (7-18); CALCIUM 9.2 mg/dL (8.5-10.1); CO2 28 mmol/L (21-32); GLUCOSE,RANDOM 279 mg/dL (74-106); MAGNESIUM 2.2 mg/dL (1.8-2.4)
[2023-05-02 07:31] LABS: ALBUMIN 1.8 g/dl (3.4-5.0)
[2023-05-02 07:33] LABS: BILIRUBIN,DIRECT 0.4 mg/dL (0.0-0.2); CREATININE 1.4 mg/dL (0.55-1.3); SGOT/AST 7 U/L (15-37); SGPT/ALT 14 U/L (13-61)
[2023-05-02 07:34] LABS: BILIRUBIN,TOTAL 1.3 mg/dL (0.2-1)
[2023-05-02 07:35] LABS: TOT PROT 5.6 g/dl (6.4-8.2)
[2023-05-02 07:36] LABS: ALK PHOS 101 U/L (45-117)
[2023-05-02 07:48] LABS: PHOSPHOROUS 1.1 mg/dL (2.5-4.9)
[2023-05-02] MEDS ORDERED: KCL 10 MEQ IVPB 10 MEQ/100 ML INFUS.BAG IVPB SCH (08:30)
[2023-05-02] MEDS: NAPH,MB-DB/K PH,MBDB POWDER PACKET GT ONE ×2 (08:52→11:00)
[2023-05-02] MEDS: PANTOPRAZOLE SODIUM 40 MG VIAL IVPUSH SCH (09:27)
[2023-05-02] MEDS ORDERED: POTASSIUM PHOSPHATE 40 MM in SODIUM CHLORIDE 500 ML IVPB ONE (10:00)
[2023-05-02] MEDS: BACITRACIN ZINC 15 GM TUBE TOPICAL OINTMENT TP SCH (10:59)
[2023-05-02] MEDS: VITAMIN B COMP W-C 1 EA TABLET (NEPHRO-VITE) PEG SCH (11:01)
[2023-05-02] MEDS: dilTIAZem HCL 30 MG TABLET PO SCH ×3 (11:09→21:38)
[2023-05-02] MEDS: COLLAGENASE CLOSTRIDIUM HIST. 30 GRAMS TUBE TP SCH (16:06)
[2023-05-02] MEDS: FUROSEMIDE 40 MG/4 ML INJECTABLE VIAL IVPUSH SCH (16:07)
[2023-05-02] MEDS ORDERED: INSULIN (NOVOLOG) ASPART 100 UNITS/ML 10ML VIAL ONE (18:39)
[2023-05-03] MEDS: INSULIN SLIDING SCALE (NOVOLOG) 1 VIAL SQ SCH ×4 (06:32→22:27)
[2023-05-03] MEDS: dilTIAZem HCL 30 MG TABLET PO SCH ×3 (06:33→22:13)
[2023-05-03] MEDS ORDERED: SODIUM CHLORIDE 250 ML IV PRN ×2 (08:06→08:07)
[2023-05-03] MEDS ORDERED: EPOETIN ALFA-EPBX 20,000 UNIT/ML VIAL SQ ONE (08:15)
[2023-05-03] MEDS: AMINO ACIDS/PROTEIN HYDROLYS 30 ML LIQUID.PKT GT SCH ×2 (09:25→17:44)
[2023-05-03] MEDS: VITAMIN B COMP W-C 1 EA TABLET (NEPHRO-VITE) PEG SCH (09:26)
[2023-05-03] MEDS: BACITRACIN ZINC 15 GM TUBE TOPICAL OINTMENT TP SCH (09:29)
[2023-05-03] MEDS: PANTOPRAZOLE SODIUM 40 MG VIAL IVPUSH SCH (09:29)
[2023-05-03] MEDS: FUROSEMIDE 40 MG/4 ML INJECTABLE VIAL IVPUSH SCH (09:29)
[2023-05-03] MEDS: COLLAGENASE CLOSTRIDIUM HIST. 30 GRAMS TUBE TP SCH (09:48)
[2023-05-03 12:04] LABS: HEMATOCRIT 26.5 % (35.4-49); HEMOGLOBIN 8.4 GM/dL (11.7-16.9); MCH 27.1 pg (25.7-33.7); MCHC 31.6 g/dl (32.0-35.9); MEAN CELL VOLUME 85.8 fl (80-96); MEAN PLT VOLUME 6.5 fl (7.5-11.1); PLATELET COUNT 325 10^3/uL (134-434); RBC 3.09 M/mm3 (4.00-5.60); RDW 18.4 % (11.9-15.9); WHITE BLOOD COUNT 9.9 K/mm3 (4.0-10.0)
[2023-05-03 12:31] LABS: POTASSIUM 3.6 mmol/L (3.5-5.1)
[2023-05-03 12:37] LABS: ALBUMIN 1.8 g/dl (3.4-5.0); BLOOD UREA NITROGEN 64.7 mg/dL (7-18); CALCIUM 8.2 mg/dL (8.5-10.1)
[2023-05-03 12:40] LABS: CREATININE 1.6 mg/dL (0.55-1.3); PHOSPHOROUS 3.8 mg/dL (2.5-4.9)
[2023-05-03 12:41] LABS: BILIRUBIN,TOTAL 0.8 mg/dL (0.2-1)
[2023-05-03 12:44] LABS: TOT PROT 5.7 g/dl (6.4-8.2)
[2023-05-03] MEDS: ALBUMIN HUMAN 25% 12.5 GM/50 ML VIAL IV SCH ×3 (16:22→16:25)
[2023-05-03] MEDS: AMINO ACIDS 4.25%/D5W 1,000 ML IV SCH (17:18)
[2023-05-04] MEDS: dilTIAZem HCL 30 MG TABLET PO SCH ×2 (05:28→13:13)
[2023-05-04] MEDS: INSULIN SLIDING SCALE (NOVOLOG) 1 VIAL SQ SCH ×3 (06:08→17:34)
[2023-05-04] MEDS: BACITRACIN ZINC 15 GM TUBE TOPICAL OINTMENT TP SCH (10:25)
[2023-05-04] MEDS: FUROSEMIDE 40 MG/4 ML INJECTABLE VIAL IVPUSH SCH (10:25)
[2023-05-04] MEDS: VITAMIN B COMP W-C 1 EA TABLET (NEPHRO-VITE) PEG SCH (10:25)
[2023-05-04] MEDS: AMINO ACIDS/PROTEIN HYDROLYS 30 ML LIQUID.PKT GT SCH ×2 (10:25→17:30)
[2023-05-04] MEDS: PANTOPRAZOLE SODIUM 40 MG VIAL IVPUSH SCH (10:25)
[2023-05-04] MEDS: COLLAGENASE CLOSTRIDIUM HIST. 30 GRAMS TUBE TP SCH (10:26)
[2023-05-04] MEDS: AMINO ACIDS 4.25%/D5W 1,000 ML IV SCH (13:13)
[2023-05-04] MEDS ORDERED: ACETAMINOPHEN 650 MG/20.3 ML ORAL SOLUTION (CUPS) PO ONE (14:47)
[2023-05-04 14:59] VITALS: RESP 20
[2023-05-04 16:10] VITALS: BMI 29.9
[2023-05-04 18:07] VITALS: BP 158/78; PULSE 73; TEMP 97.3
== END 2023-05-04 19:15 | DRG 870 ==
LOC: JER 05:31 → JERBED 07:03 → OBSVTOIN 11:23 → J5S 04-25 18:11 → JICU 04-30 19:36
PROVIDERS: ADMIT Family Medicine; ATTEND Family Medicine
PROC: 5A1955Z Respiratory Ventilation, Greater than 96 Consecutive Hours (ICD-10-PCS; principal; 2023-04-23)
PROC: 30233N1 Transfusion of Nonautologous Red Blood Cells into Peripheral Vein, Percutaneous Approach (ICD-10-PCS; 2023-04-23)
PROC: 05HM33Z Insertion of Infusion Device into Right Internal Jugular Vein, Percutaneous Approach (ICD-10-PCS; 2023-04-28)
PROC: B543ZZA Ultrasonography of Right Jugular Veins, Guidance (ICD-10-PCS; 2023-04-28)
PROC: 5A1D70Z Performance of Urinary Filtration, Intermittent, Less than 6 Hours Per Day (ICD-10-PCS; 2023-05-03)
DX: A41.51 Sepsis due to Escherichia coli [E. coli] (principal); N18.6 End stage renal disease; R53.2 Functional quadriplegia; J96.10 Chronic respiratory failure, unspecified whether with hypoxia or hypercapnia; G93.1 Anoxic brain damage, not elsewhere classified; I13.2 Hypertensive heart and chronic kidney disease with heart failure and with stage 5 chronic kidney disease, or end stage renal disease; N39.0 Urinary tract infection, site not specified; I82.621 Acute embolism and thrombosis of deep veins of right upper extremity; Z99.11 Dependence on respirator [ventilator] status; D64.9 Anemia, unspecified; E03.9 Hypothyroidism, unspecified; E87.6 Hypokalemia; L89.150 Pressure ulcer of sacral region, unstageable; I48.91 Unspecified atrial fibrillation; Z93.0 Tracheostomy status; Z93.1 Gastrostomy status; T68.XXXA Hypothermia, initial encounter; I50.9 Heart failure, unspecified; E11.22 Type 2 diabetes mellitus with diabetic chronic kidney disease; E78.5 Hyperlipidemia, unspecified; X58.XXXA Exposure to other specified factors, initial encounter; Y93.9 Activity, unspecified; Y92.9 Unspecified place or not applicable
CPT/HCPCS: 36415; 36430; 36511; 71045-TC-FY; 74018-TC-FY; 74019-TC-FY; 74174-TC; 74176-TC; 80048; 80053; 80076; 81003; 82272; 82550; 82607; 82668; 82728; 82746; 82962; 83010; 83036; 83540; 83550; 83615; 83735; 84100; 84443; 85025; 85027; 85045; 85384; 85610; 85730; 86704; 86803; 86850; 86880; 86900; 86901; 86922; 87086; 87186; 87340; 87517; 87635; 93005; 93010; 93971; 94002; 94640; 99285-25; G0378; P9038; P9047; P9058; Q5106

== ENCOUNTER 2023-06-13 16:11 | Inpatient (IN) | payer OTHER ==
[2023-06-13] MEDS ORDERED: VANCOMYCIN 1 GRAM (PRE-DOCKED) 1,000 MG/250 ML BAG IVPB ONE (18:38)
[2023-06-13] MEDS ORDERED: PIPERACILLIN/TAZOB 3.375 GM 3.375 GM/50 ML BAG IVPB ONE (18:38)
[2023-06-13] MEDS: PIPERACILLIN/TAZOB 3.375 GM 3.375 GM in DEXTROSE 5%-WATER - 50 ML IVPB ONE (18:43)
[2023-06-13 18:53] LABS: BASO % 0.4 % (0-2.0); EOS % 0.4 % (0-4.5); HEMATOCRIT 27.4 % (35.4-49); HEMOGLOBIN 8.9 GM/dL (11.7-16.9); LYMPH % 10.4 % (8-40); MCHC 32.6 g/dl (32.0-35.9); MEAN CELL VOLUME 88.8 fl (80-96); MEAN PLT VOLUME 6.4 fl (7.5-11.1); MONO % 5.2 % (3.8-10.2); NEUT % 83.6 % (42.8-82.8); PLATELET COUNT 458 10^3/uL (134-434); RBC 3.08 M/mm3 (4.00-5.60); RDW 18.1 % (11.9-15.9); WHITE BLOOD COUNT 13.1 K/mm3 (4.0-10.0)
[2023-06-13 19:00] LABS: INR 1.15 (0.83-1.09); PROTHROMBIN TIME (PATIENT) 13.3 SEC (9.7-13.0)
[2023-06-13 19:03] LABS: ACTIVATED PTT 29.8 SECONDS (25.2-36.5)
[2023-06-13 19:20] LABS: POTASSIUM 4.5 mmol/L (3.5-5.1)
[2023-06-13 19:22] LABS: CALCIUM 9.6 mg/dL (8.5-10.1)
[2023-06-13 19:23] LABS: ALBUMIN 1.7 g/dl (3.4-5.0); BLOOD UREA NITROGEN 90.8 mg/dL (7-18); MAGNESIUM 2.5 mg/dL (1.8-2.4)
[2023-06-13 19:26] LABS: CREATININE 1.8 mg/dL (0.55-1.3)
[2023-06-13 19:28] LABS: BILIRUBIN,TOTAL 0.7 mg/dL (0.2-1); TOT PROT 7.5 g/dl (6.4-8.2)
[2023-06-13 19:47] LABS: LACTIC ACID 2.5 mmol/L (0.4-2.0)
[2023-06-13 20:06] LABS: VENOUS BASE EXCESS 2.5 mmol/L (-2-2); VENOUS O2 SATURATION 56.1 % (70-80); VENOUS PCO2 42.9 mmHg (38-52); VENOUS PH 7.42 (7.310-7.410)
[2023-06-13] MEDS: VANCOMYCIN 1,000 MG in DEXTROSE 5%-WATER - 250 ML IVPB ONE (20:23)
[2023-06-13] MEDS: SODIUM CHLORIDE 0.9% 1000 ML INFUS.BAG IV ONE (20:49)
[2023-06-13] MEDS ORDERED: ALBUTEROL SO4 2.5/IPRATROPIUM 0.5 INH SOL 3 ML VIAL.NEB. NEB ONE (21:51)
[2023-06-13] MEDS: ALBUTEROL SO4 2.5/IPRATROPIUM 0.5 INH SOL 3 ML VIAL.NEB. NEB SCH (21:56)
[2023-06-13] MEDS ORDERED: BISACODYL 10 MG SUPP.RECT RC PRN (22:20)
[2023-06-13] MEDS ORDERED: HEPARIN NA (PORCINE) 5,000 UNITS/ML 1ML VIAL ONE (22:21)
[2023-06-13 22:30] LABS: RETICULOCYTES 3.48 % (0.5-1.5)
[2023-06-13] MEDS: INSULIN ASPART SLIDING SCALE (NOVOLOG) 1 VIAL SQ SCH (22:44)
[2023-06-13] MEDS: HEPARIN NA (PORCINE) 5,000 UNITS/ML 1ML VIAL SQ SCH (22:50)
[2023-06-14] MEDS ORDERED: PIPERACILLIN/TAZOB 4.5 GM 4.5 GM in DEXTROSE 5%-WATER 100 ML IVPB SCH (01:00)
[2023-06-14] MEDS ORDERED: PIPERACILLIN/TAZOB 4.5 GM 2.25 GM in DEXTROSE 5%-WATER 100 ML IVPB SCH (01:25)
[2023-06-14] MEDS ORDERED: PIPERACILLIN/TAZOB 4.5 GM 4.5 GM/100 ML BAG IVPB ONE ×3 (02:15→14:00)
[2023-06-14] MEDS: PIPERACILLIN/TAZOB 4.5 GM 4.5 GM in DEXTROSE 5%-WATER 100 ML IVPB SCH ×2 (02:28→21:29)
[2023-06-14] MEDS: SODIUM CHLORIDE 0.9% 500 ML INFUS.BAG IV ONE (04:42)
[2023-06-14 06:52] LABS: HEMATOCRIT 27.4 % (35.4-49); HEMOGLOBIN 8.9 GM/dL (11.7-16.9); MCH 29.4 pg (25.7-33.7); MCHC 32.4 g/dl (32.0-35.9); MEAN CELL VOLUME 90.7 fl (80-96); MEAN PLT VOLUME 6.6 fl (7.5-11.1); PLATELET COUNT 398 10^3/uL (134-434); RBC 3.02 M/mm3 (4.00-5.60)
[2023-06-14] MEDS ORDERED: HEPARIN NA (PORCINE) 5,000 UNITS/ML 1ML VIAL ONE (06:55)
[2023-06-14 07:08] LABS: POTASSIUM 4.6 mmol/L (3.5-5.1)
[2023-06-14 07:09] LABS: CALCIUM 9.4 mg/dL (8.5-10.1)
[2023-06-14 07:10] LABS: ALBUMIN 1.5 g/dl (3.4-5.0); BLOOD UREA NITROGEN 95.4 mg/dL (7-18); MAGNESIUM 2.2 mg/dL (1.8-2.4)
[2023-06-14 07:13] LABS: PHOSPHOROUS 1.8 mg/dL (2.5-4.9)
[2023-06-14 07:14] LABS: CREATININE 1.8 mg/dL (0.55-1.3)
[2023-06-14 07:15] LABS: BILIRUBIN,TOTAL 0.6 mg/dL (0.2-1); TOT PROT 6.7 g/dl (6.4-8.2)
[2023-06-14] MEDS: PIPERACILLIN/TAZOB 3.375 GM 3.375 GM in DEXTROSE 5%-WATER - 50 ML IVPB SCH (19:04)
[2023-06-15] MEDS: SODIUM CHLORIDE 1,000 ML IV STA (14:53)
[2023-06-16] MEDS ORDERED: SODIUM CHLORIDE 250 ML IV PRN (08:35)
[2023-06-16] MEDS: ALBUMIN HUMAN 25% 12.5 GM/50 ML VIAL IV SCH (10:00)
[2023-06-16] MEDS: EPOETIN ALFA-EPBX 10,000 UNIT/ML VIAL SQ ONE (10:07)
[2023-06-16] MEDS: LEVOTHYROXINE SODIUM 100 MCG 5 ML VIAL IVPUSH SCH (14:38)
[2023-06-17] MEDS: ACETAMINOPHEN 325 MG TABLET (FP) PO PRN (09:57)
[2023-06-18] MEDS ORDERED: SODIUM CHLORIDE 250 ML IV PRN (07:10)
[2023-06-18 10:02] LABS: HEMATOCRIT 22.6 % (35.4-49); HEMOGLOBIN 7.2 GM/dL (11.7-16.9); MCH 28.8 pg (25.7-33.7); MEAN CELL VOLUME 89.8 fl (80-96); MEAN PLT VOLUME 6.3 fl (7.5-11.1); PLATELET COUNT 394 10^3/uL (134-434); RBC 2.51 M/mm3 (4.00-5.60); WHITE BLOOD COUNT 10.4 K/mm3 (4.0-10.0)
[2023-06-18] MEDS: EPOETIN ALFA-EPBX 10,000 UNIT/ML VIAL IVPUSH ONE (10:06)
[2023-06-18 10:47] LABS: CHLORIDE 97 mmol/L (98-107); SODIUM 137 mmol/L (136-145)
[2023-06-18 10:48] LABS: CALCIUM 8.6 mg/dL (8.5-10.1)
[2023-06-18 10:49] LABS: ALBUMIN 1.4 g/dl (3.4-5.0); CO2 29 mmol/L (21-32); GLUCOSE,RANDOM 348 mg/dL (74-106)
[2023-06-18 10:51] LABS: CREATININE 1.8 mg/dL (0.55-1.3)
[2023-06-18 10:52] LABS: SGOT/AST 6 U/L (15-37); SGPT/ALT 9 U/L (13-61)
[2023-06-18 10:53] LABS: ALK PHOS 246 U/L (45-117); BILIRUBIN,TOTAL 0.5 mg/dL (0.2-1); TOT PROT 5.9 g/dl (6.4-8.2)
[2023-06-18 10:57] LABS: ANION GAP 10 mmol/L (4-13); BLOOD UREA NITROGEN 65.7 mg/dL (7-18); POTASSIUM 2.8 mmol/L (3.5-5.1)
[2023-06-18] MEDS: KCL 10 MEQ IVPB 10 MEQ/100 ML INFUS.BAG IVPB SCH (14:17)
[2023-06-18] MEDS: POTASSIUM CHLORIDE ORAL LIQUID 20 MEQ/15 ML GT SCH (21:56)
[2023-06-19 10:05] LABS: HEMATOCRIT 25.4 % (35.4-49); HEMOGLOBIN 8.2 GM/dL (11.7-16.9); MCH 29.7 pg (25.7-33.7); MCHC 32.1 g/dl (32.0-35.9); MEAN CELL VOLUME 92.6 fl (80-96); MEAN PLT VOLUME 6.3 fl (7.5-11.1); PLATELET COUNT 397 10^3/uL (134-434); RBC 2.75 M/mm3 (4.00-5.60); RDW 17.6 % (11.9-15.9); WHITE BLOOD COUNT 10.9 K/mm3 (4.0-10.0)
[2023-06-19] MEDS: KCL 10 MEQ IVPB 10 MEQ/100 ML INFUS.BAG IVPB SCH (11:38)
[2023-06-19 20:57] VITALS: BMI 30.2
[2023-06-19] MEDS: INSULIN ASPART SLIDING SCALE (NOVOLOG) 1 VIAL SQ SCH (22:28)
[2023-06-20] MEDS: INSULIN (LEVEMIR) 100 UNITS/ML UNITS SQ SCH (06:27)
[2023-06-20] MEDS ORDERED: METOPROLOL TARTRATE 5 MG/5 ML VIAL ONE (07:01)
[2023-06-20] MEDS: METOPROLOL TARTRATE 25 MG TABLET (FP) PO ONE (07:49)
[2023-06-20] MEDS: METOPROLOL TARTRATE 5 MG/5 ML VIAL IVPUSH ONE ×2 (07:59→08:01)
[2023-06-20] MEDS: AMINO ACIDS/PROTEIN HYDROLYS 30 ML LIQUID.PKT PO SCH (08:03)
[2023-06-20] MEDS: METOPROLOL TARTRATE 5 MG/5 ML VIAL IVPUSH PRN (11:00)
[2023-06-20] MEDS: ZINC SULFATE 220 MG CAPSULE (FP) PO SCH (11:00)
[2023-06-20] MEDS: VITAMIN B COMP W-C 1 EA TABLET (NEPHRO-VITE) PO SCH (11:01)
[2023-06-20] MEDS: METOPROLOL TARTRATE 25 MG TABLET (FP) PO SCH (11:01)
[2023-06-20] MEDS ORDERED: INSULIN (NOVOLOG) ASPART 100 UNITS/ML 10ML VIAL ONE (16:39)
[2023-06-21] MEDS ORDERED: SODIUM CHLORIDE 250 ML IV PRN (09:00)
[2023-06-21] MEDS ORDERED: EPOETIN ALFA-EPBX 10,000 UNIT/ML VIAL IVPUSH ONE (09:00)
[2023-06-21] MEDS ORDERED: ALBUMIN HUMAN 25% 12.5 GM/50 ML VIAL IV SCH (09:00)
[2023-06-21 09:34] LABS: HEMATOCRIT 23.7 % (35.4-49); HEMOGLOBIN 7.8 GM/dL (11.7-16.9); MCH 29.5 pg (25.7-33.7); MCHC 32.7 g/dl (32.0-35.9); MEAN CELL VOLUME 90.4 fl (80-96); MEAN PLT VOLUME 6.6 fl (7.5-11.1); PLATELET COUNT 362 10^3/uL (134-434); RBC 2.62 M/mm3 (4.00-5.60); RDW 18.3 % (11.9-15.9); WHITE BLOOD COUNT 12.1 K/mm3 (4.0-10.0)
[2023-06-21 10:06] LABS: POTASSIUM 5.6 mmol/L (3.5-5.1)
[2023-06-21 10:15] LABS: BLOOD UREA NITROGEN 58.8 mg/dL (7-18); CALCIUM 9.2 mg/dL (8.5-10.1)
[2023-06-21 10:19] LABS: CREATININE 1.7 mg/dL (0.55-1.3)
[2023-06-22] MEDS ORDERED: SODIUM CHLORIDE 250 ML IV PRN (11:26)
[2023-06-22 13:22] LABS: POTASSIUM 5.2 mmol/L (3.5-5.1)
[2023-06-22 13:23] LABS: ALBUMIN 1.6 g/dl (3.4-5.0); CALCIUM 9.4 mg/dL (8.5-10.1)
[2023-06-22 13:26] LABS: CREATININE 1.3 mg/dL (0.55-1.3)
[2023-06-22 13:28] LABS: BILIRUBIN,TOTAL 0.6 mg/dL (0.2-1); TOT PROT 6.7 g/dl (6.4-8.2)
[2023-06-23] MEDS ORDERED: INSULIN (NOVOLOG) ASPART 100 UNITS/ML 10ML VIAL ONE (07:01)
[2023-06-23 07:22] LABS: HEMATOCRIT 24.3 % (35.4-49); HEMOGLOBIN 7.9 GM/dL (11.7-16.9); MCH 29.3 pg (25.7-33.7); MCHC 32.4 g/dl (32.0-35.9); MEAN CELL VOLUME 90.4 fl (80-96); MEAN PLT VOLUME 6.5 fl (7.5-11.1); PLATELET COUNT 387 10^3/uL (134-434); RBC 2.69 M/mm3 (4.00-5.60); RDW 17.9 % (11.9-15.9); WHITE BLOOD COUNT 13.3 K/mm3 (4.0-10.0)
[2023-06-23 07:23] LABS: POTASSIUM 4.9 mmol/L (3.5-5.1)
[2023-06-23 07:29] LABS: CALCIUM 9.3 mg/dL (8.5-10.1)
[2023-06-23 07:30] LABS: ALBUMIN 1.5 g/dl (3.4-5.0); BLOOD UREA NITROGEN 48.2 mg/dL (7-18)
[2023-06-23 07:33] LABS: CREATININE 1.4 mg/dL (0.55-1.3)
[2023-06-23 07:34] LABS: TOT PROT 6.5 g/dl (6.4-8.2)
[2023-06-23 07:35] LABS: BILIRUBIN,TOTAL 0.7 mg/dL (0.2-1)
[2023-06-23] MEDS: EPOETIN ALFA-EPBX 20,000 UNIT/ML VIAL IVPUSH ONE (10:33)
[2023-06-23] MEDS ORDERED: dilTIAZem HCL 30 MG TABLET PO PRN (11:07)
[2023-06-23] MEDS ORDERED: ACETAMINOPHEN 650 MG/20.3 ML ORAL SOLUTION (CUPS) GT PRN (11:20)
[2023-06-23] MEDS: dilTIAZem HCL 30 MG TABLET GT PRN (12:51)
[2023-06-23] MEDS ORDERED: DEXTROSE 50%-WATER 25 GM/50 ML DISP.SYRIN ONE (15:15)
[2023-06-23 15:20] VITALS: BP 97/56; PULSE 109; RESP 20; TEMP 97.9
[2023-06-23] MEDS: DEXTROSE 50%-WATER - 25 GM/50 ML VIAL IVPUSH ONE (15:20)
[2023-06-23] MEDS: ALBUTEROL SO4 0.083% IH SOL 2.5 MG/3 ML VIAL.NEB. NEB ONE (15:32)
[2023-06-23] MEDS: AMINO ACIDS/PROTEIN HYDROLYS 30 ML LIQUID.PKT GT SCH (17:45)
[2023-06-23] MEDS ORDERED: METOPROLOL TARTRATE 25 MG TABLET (FP) GT SCH (22:00)
[2023-06-24] MEDS ORDERED: ZINC SULFATE 220 MG CAPSULE (FP) GT SCH (10:00)
[2023-06-24] MEDS ORDERED: VITAMIN B COMP W-C 1 EA TABLET (NEPHRO-VITE) GT SCH (10:00)
== END 2023-06-23 18:15 | DRG 870 ==
LOC: JER 16:11 → JERBED 19:47 → J5S 06-14 18:10 → J2W 06-20 08:55
PROVIDERS: ADMIT Internal Medicine; ATTEND Internal Medicine
PROC: 5A1955Z Respiratory Ventilation, Greater than 96 Consecutive Hours (ICD-10-PCS; principal; 2023-06-13)
PROC: 5A1D70Z Performance of Urinary Filtration, Intermittent, Less than 6 Hours Per Day (ICD-10-PCS; 2023-06-16)
PROC: 5A1D70Z Performance of Urinary Filtration, Intermittent, Less than 6 Hours Per Day (ICD-10-PCS; 2023-06-18)
PROC: 5A1D70Z Performance of Urinary Filtration, Intermittent, Less than 6 Hours Per Day (ICD-10-PCS; 2023-06-21)
PROC: 5A1D70Z Performance of Urinary Filtration, Intermittent, Less than 6 Hours Per Day (ICD-10-PCS; 2023-06-23)
DX: A41.89 Other specified sepsis (principal); L89.153 Pressure ulcer of sacral region, stage 3; L89.324 Pressure ulcer of left buttock, stage 4; N18.6 End stage renal disease; R53.2 Functional quadriplegia; I12.0 Hypertensive chronic kidney disease with stage 5 chronic kidney disease or end stage renal disease; E87.1 Hypo-osmolality and hyponatremia; N17.9 Acute kidney failure, unspecified; G93.1 Anoxic brain damage, not elsewhere classified; J90 Pleural effusion, not elsewhere classified; J95.851 Ventilator associated pneumonia; E11.52 Type 2 diabetes mellitus with diabetic peripheral angiopathy with gangrene; J96.10 Chronic respiratory failure, unspecified whether with hypoxia or hypercapnia; E78.5 Hyperlipidemia, unspecified; E11.22 Type 2 diabetes mellitus with diabetic chronic kidney disease; E11.43 Type 2 diabetes mellitus with diabetic autonomic (poly)neuropathy; D63.1 Anemia in chronic kidney disease; R80.8 Other proteinuria; E83.41 Hypermagnesemia; E03.9 Hypothyroidism, unspecified; I48.0 Paroxysmal atrial fibrillation; D72.829 Elevated white blood cell count, unspecified; E87.6 Hypokalemia; E11.65 Type 2 diabetes mellitus with hyperglycemia; Z93.0 Tracheostomy status; Z99.2 Dependence on renal dialysis; Z93.1 Gastrostomy status; Z74.01 Bed confinement status
CPT/HCPCS: 0241U-QW; 36415; 71045-TC-FY; 74018-TC-FY; 80048; 80053; 82140; 82607; 82728; 82746; 82803; 82962; 83540; 83550; 83605; 83735; 84100; 84439; 84443; 84484; 85025; 85027; 85045; 85610; 85730; 86803; 86850; 86900; 86901; 87040; 87070; 87186; 87205; 87340; 87635; 93005; 93010; 94002; 94640; 99285-25; J1644; P9047; Q5106